=== PATIENT | female | born 1970 | race Caucasian/White ===

== ENCOUNTER 2016-06-14 00:04 | Emergency (ER) | payer MEDICARE, OTHER, MEDICAID ==
[~2016-06-14] VITALS: Ht 165.1 cm; Wt 109.0 kg
[~2016-06-14 00:04] MED LIST: BENA25TA3 PO; DULO-39 PO; FIORINAL2 PO; LINA145C PO; MACR100C2 PO; MARI5CAP PO; MIRA33504 PO; MULT1TAB84 PO; PERC10TA27 PO; TRAZ300T2 PO; XANA1TAB2 PO; XARE20TA PO; ZOFR4TAB3 SL
[2016-06-14 00:16] VITALS: BP 99/59; PULSE 86; RESP 16; TEMP 97.4; O2SAT 96
[2016-06-14 02:00] VITALS: BP 109/70; PULSE 87; RESP 18; O2SAT 97
[2016-06-14] MEDS ORDERED: SODIUM CHLOR 0.9% 1000 ML INJ 1,000 ML IV SCH (02:37)
[2016-06-14] MEDS ORDERED: HYDROmorphone HCL PF 1 MG/ML VIAL IVS ONE (02:45)
[2016-06-14] MEDS ORDERED: ONDANSETRON HCL 4 MG/2 ML VIAL IVP ONE (02:45)
[2016-06-14] MEDS ORDERED: DIATRIZOATE MEGLUM/DIATRIZOATE SOD 9 ML CUP ONE (03:24)
[2016-06-14 03:35] LABS: AUTOMATED NEUTROPHIL # 1.7 TH/MM3 (1.8-7.7); BASOPHIL % 0.1 % (0.0-2.0); EOSINOPHIL # 0.5 TH/MM3 (0-0.4); EOSINOPHIL % 12.4 % (0.0-4.0); HEMATOCRIT 32.3 % (35.0-46.0); HEMO FLAGS DIFF FINAL; LYMPH % 35.3 % (9.0-44.0); LYMPHOCYTE # 1.5 TH/MM3 (1.0-4.8); MEAN CELL VOLUME 78.2 FL (80.0-100.0); MEAN CORPUSCULAR HEMOGLOBIN 26.4 PG (27.0-34.0); MEAN CORPUSCULAR HGB CONC 33.8 % (32.0-36.0); MONO % 10.7 % (0.0-8.0); NEUT % 41.5 % (16.0-70.0); PLATELET COUNT 243 TH/MM3 (150-450); RED BLOOD COUNT 4.13 MIL/MM3 (4.00-5.30); RED CELL DISTRIBUTION WIDTH 13.4 % (11.6-17.2); WHITE BLOOD COUNT 4.1 TH/MM3 (4.0-11.0)
[2016-06-14] MEDS: SODIUM CHLORIDE 0.9% FLUSH 5 ML FLUSH IVF PRN ×3 (03:38→06:39)
[2016-06-14 03:39] VITALS: RESP 18; O2SAT 97
[2016-06-14 03:44] LABS: BICARBONATE 32.9 MEQ/L (21.0-32.0); POTASSIUM 3.9 MEQ/L (3.5-5.1)
[2016-06-14 03:48] LABS: APTT (PATIENT) 35.3 SEC (24.3-30.1); INTERNATIONAL NORMALIZED RATIO 0.9 RATIO; PROTHROMBIN TIME - PATIENT 9.8 SEC (9.8-11.6)
[2016-06-14 04:00] VITALS: BP 113/68; PULSE 89; RESP 18; O2SAT 100
[2016-06-14] MEDS ORDERED: HYDROmorphone HCL PF 1 MG/ML VIAL IV PUSH ONE (05:00)
--- NOTE | 2016-06-14 05:19 | RADRPT ---
EXAM DATE/TIME: 06/14/2016 04:55 [facility] COMPARISON: CT ABDOMEN & PELVIS W/O CONTRAST, April 05, 2016, 0:31. INDICATIONS : Abdomen and back pain past 3 days. ORAL CONTRAST: Prescribed oral contrast ingested. RADIATION DOSE: 20.82 CTDIvol (mGy) MEDICAL HISTORY : Diverticulitis. Pancreatitis. SURGICAL HISTORY : Cholecystectomy. Hysterectomy.Discectomy, lumbar.Pain pump ENCOUNTER: Initial ACUITY: 3 days PAIN SCALE: 7/10 LOCATION: Bilateral abdomen TECHNIQUE: Volumetric scanning of the abdomen and pelvis was performed. Using automated exposure control and ad justment of the mA and/or kV according to patient size, radiation dose was kept as low as reasonably achievable to obtain optimal diagnostic quality images. FINDINGS: LOWER LUNGS: The visualized lower lungs are clear. LIVER: Homogeneous density without lesion. There is no dilation of the biliary tree. Air in the biliary south e in the left lobe, stable. Cholecystectomy SPLEEN: Normal size without lesion. PANCREAS: Within normal limits. KIDNEYS: Normal in size and shape. There is no mass, stone, or hydronephrosis. ADRENAL GLANDS: Within normal limits. VASCULAR: There is no aortic aneurysm. BOWEL/MESENTERY: The stomach, small bowel, and colon demonstrate no acute abnormality. There is no free intraperitone al air or fluid. Minimal mesenteric stranding. ABDOMINAL WALL: Within normal limits. RETROPERITONEUM: There is no lymphadenopathy. BLADDER: No wall thickening or mass. REPRODUCTIVE: Within normal limits. INGUINAL: There is no lymphadenopathy or hernia. MUSCULOSKELETAL: Within normal limits for patient age. Neural stimulator device in the left flank again seen. CONCLUSION: 1. Minimal mesenteric stranding, nonspecific. 2. Air in the biliary tree in the left lobe with previous cholecystectomy, unchanged. Marbin Patel MD on June 14, 2016 at 5:14 Board Certified Radiologist. This report was verified electronically.
[2016-06-14 05:38] LABS: BACTERIA, URINE RARE /hpf; BLOOD, URINE NEG (NEG); COMMENT (UR) CULT NOT INDICATED; CULTURE IF INDICATED CULT NOT INDICATED; GLUCOSE,URINE NEG (NEG); KETONE, URINE NEG (NEG); NITRITE,URINE NEG (NEG); PH, URINE 5.5 (5.0-8.5); SQUAMOUS EPITHELIAL CELL URINE 1 /hpf (0-5); URINE COLOR LIGHT-YELLOW (YELLW/STRAW)
[2016-06-14 05:46] LABS: ALT (GPT) 12 U/L (10-53); AST (GOT) 10 U/L (15-37)
[2016-06-14 05:48] LABS: ALKALINE PHOSPHATASE 78 U/L (45-117); TOTAL BILIRUBIN ADULT 0.1 MG/DL (0.2-1.0)
[2016-06-14 06:00] VITALS: BP 101/62; PULSE 80; RESP 18; O2SAT 98
[2016-06-14] MEDS ORDERED: ONDANSETRON HCL 4 MG/2 ML VIAL IV PUSH ONE (06:30)
[2016-06-14] MEDS ORDERED: AMOX500C PO (06:44)
--- NOTE | 2016-06-14 06:44 | PD ---
HPI Chief Complaint: Abdominal Pain Time Seen by Provider: 02:12 Travel History International Travel<30 days: No Contact w/Intl Traveler<30days: No Traveled to known affect area: No History of Present Illness HPI Patient is a 46-year-old female with multiple abdominal surgeries in the past who comes in complaining of right upper quadrant abdominal pain. She has had a cholecystectomy in the past. She said the pain started earlier. She has had nausea and vomiting. She also reports constipation yesterday and diarrhea today. She says she has had pressure in her bladder, with urgency and frequency of urination. She denies any dysuria. She has not had any fever or chills. PFSH Past Medical History Anxiety: Yes Depression: No Heart Rhythm Problems: No Cancer: No Cardiovascular Problems: No High Cholesterol: No Chest Pain: No Congestive Heart Failure: No Diabetes: No Diminished Hearing: No Diverticulitis: Yes Endocrine: No Gastrointestinal Disorders: Yes (GASTRITIS,ESOPHAGITIS, N&V, HX ULCERS) Genitourinary: Yes (PROLAPSED BLADDER) Hepatitis: No Hiatal Hernia: No Immune Disorder: No Implanted Vascular Access Dvce: Yes Medical other: Yes (ABDOMINAL HERNIA) Musculoskeletal: Yes (DDD, LUMBAR HERNIATED DISC L5-S1) Neurologic: Yes (MIGRAINES, "BLACK OUT SPELLS") Psychiatric: Yes (CLAUSTROPHOBIA) Reproductive: No Respiratory: No Migraines: Yes Pancreatitis: Yes Seizures: Yes Thyroid Disease: No Ulcer: Yes (HEALED GASTRIC) ?: Not LMP: january : 2 Para: 2 Tubal Ligation: Yes Past Surgical History Abdominal Surgery: Yes (SLEEVE SX ON 11/04/13,CHOLY) AICD: No Body Medical Devices: NONE Cardiac Surgery: No Section: Yes (x2) Cholecystectomy: Yes (LAP. IN 2011) Ear Surgery: No Eye Surgery: No Genitourinary Surgery: No Gynecologic Surgery: Yes (C SECTION (X2), TUBAL LIG.) Hysterectomy: Yes Joint Replacement: No Oral Surgery: No Pacemaker: No Thoracic Surgery: No Other Surgery: Yes (LEFT THIGH I&D FOR MRSA) Social History Alcohol Use: No Tobacco Use: No (never) Substance Use: No Allergies-Medications (Allergen,Severity, Reaction): Coded Allergies: Cipro (Verified Allergy, Severe, Hives, ABD PAIN, 06/14/16) Doxycycline (Verified Allergy, Severe, SWELLING, HIVES, 06/14/16) Cleocin (Verified Allergy, Intermediate, HIVES, 06/14/16) Contrast Media (Verified Allergy, Intermediate, Hives, 06/14/16) Vancomycin (Verified Allergy, Intermediate, HIVES, 06/14/16) Biaxin (Verified Adverse Reaction, Intermediate, NAUSEA, 06/14/16) Motrin (Verified Adverse Reaction, Intermediate, ULCERS, ABD PAIN, 06/14/16 ) PT HAS ULCERS, DOES NOT WISH TO TAKE. Toradol (Verified Adverse Reaction, Intermediate, 06/14/16) ABDOMINAL PAIN Bactrim (Verified Adverse Reaction, Mild, abdominal pain, 06/14/16) Has had since without difficulty (reaction was years ago) Reported Meds & Prescriptions Reported Meds & Active Scripts Active Trazodone (Trazodone HCl) 300 Mg Tab 300 Mg PO HS Amoxicillin 500 Mg Cap 500 Mg PO TID 7 Days Xanax (Alprazolam) 1 Mg Tab 1 Mg PO BID PRN Duloxetine DR (Duloxetine HCl) 40 Mg Capdr 40 Mg PO DAILY Fiorinal (Butalbital/Aspirin/Caffeine) 50-325-40 Mg Cap 1 Cap PO Q6HR PRN Do not exceed 6 capsules/day. Reported Benadryl Allergy (Diphenhydramine HCl) 25 Mg Tab 50 Mg PO Q6H PRN Marinol (Dronabinol) 5 Mg Cap 5 Mg PO BID Linzess (Linaclotide) 145 Mcg Cap Unknown Dose PO DAILY Percocet (Oxycodone-Acetaminophen) 10-325 mg Tab 1 Tab PO TID PRN Zofran Odt (Ondansetron Odt) 4 Mg Tab 4 Mg SL Q6HR PRN Review of Systems Except as stated in HPI: all other systems reviewed are Neg General / Constitutional: No: Fever, Chills HENT: No: Headaches, Lightheadedness Cardiovascular: No: Chest Pain or Discomfort Respiratory: No: Shortness of Breath Gastrointestinal: Positive: Nausea, Vomiting, Diarrhea, Abdominal Pain Genitourinary: Positive: Urgency, Frequency, No: Dysuria Skin: No Rash, No Change in Pigmentation Physical Exam Narrative GENERAL: Awake and alert in no acute distress. SKIN: Warm and dry. HEAD: Atraumatic. Normocephalic. EYES: Pupils equal and round. No scleral icterus. ENT:Mucous membranes pink and moist. NECK: Trachea midline. No JVD. CARDIOVASCULAR: Regular rate and rhythm. No murmur appreciated. RESPIRATORY: No accessory muscle use. Clear to auscultation. Breath sounds equal bilaterally. GASTROINTESTINAL: Abdomen soft, nondistended. Diffusely tender to palpation. No rebound or guarding. No CVA tenderness. RECTAL: Brown stool, no masses, good rectal tone MUSCULOSKELETAL: No obvious deformities. No clubbing. No cyanosis. No edema. NEUROLOGICAL: Awake and alert. No obvious cranial nerve deficits. Motor grossly within normal limits. Normal speech. PSYCHIATRIC: Appropriate mood and affect; insight and judgment normal. Data Data Last Documented VS Vital Signs Date Time Temp Pulse Resp B/P Pulse Ox O2 Delivery O2 Flow Rate FiO2 06/14/16 06:00 80 18 101/62 98 Room Air 06/14/16 00:16 97.4 Orders Basic Metabolic Panel (Bmp) (06/14/16 02:37) Complete Blood Count With Diff (06/14/16 02:37) Lipase (06/14/16 02:37) Lactic Acid (06/14/16 02:37) Prothrombin Time / Inr (Pt) (06/14/16 02:37) Act Partial Throm Time (Ptt) (06/14/16 02:37) Urinalysis - C+S If Indicated (06/14/16 02:37) Ua Includes Microscopic (06/14/16 02:37) Iv Access Insert/Monitor (06/14/16 02:37) Ecg Monitoring (06/14/16 02:37) Oximetry (06/14/16 02:37) Ondansetron Inj (Zofran Inj) (06/14/16 02:45) Sodium Chlor 0.9% 1000 Ml Inj (Ns 1000 M (06/14/16 02:37) Sodium Chloride 0.9% Flush (Ns Flush) (06/14/16 02:45) Hydromorphone Pf Inj (Dilaudid Pf Inj) (06/14/16 02:45) Ct Abd/Pel W/O Iv Contrast (06/14/16 ) Oral Contrast - Adult (06/14/16 02:44) Diatrizoate Liq ( Gastroview Liq) (06/14/16 03:24) Hydromorphone Pf Inj (Dilaudid Pf Inj) (06/14/16 05:00) Hepatic Functional Panel (06/14/16 05:29) Ondansetron Inj (Zofran Inj) (06/14/16 06:30) Heparin Central Flush (Heparin Central F (06/14/16 09:00) Heparin Central Flush (Heparin Central F (06/14/16 07:00) Labs Laboratory Tests Test 06/14/16 06/14/16 06/14/16 03:10 03:13 05:10 White Blood Count 4.1 TH/MM3 Red Blood Count 4.13 MIL/MM3 Hemoglobin 10.9 GM/DL Hematocrit 32.3 % Mean Corpuscular Volume 78.2 FL Mean Corpuscular Hemoglobin 26.4 PG Mean Corpuscular Hemoglobin 33.8 % Concent Red Cell Distribution Width 13.4 % Platelet Count 243 TH/MM3 Mean Platelet Volume 8.2 FL Neutrophils (%) (Auto) 41.5 % Lymphocytes (%) (Auto) 35.3 % Monocytes (%) (Auto) 10.7 % Eosinophils (%) (Auto) 12.4 % Basophils (%) (Auto) 0.1 % Neutrophils # (Auto) 1.7 TH/MM3 Lymphocytes # (Auto) 1.5 TH/MM3 Monocytes # (Auto) 0.4 TH/MM3 Eosinophils # (Auto) 0.5 TH/MM3 Basophils # (Auto) 0.0 TH/MM3 CBC Comment DIFF FINAL Differential Comment Prothrombin Time 9.8 SEC Prothromb Time International 0.9 RATIO Ratio Activated Partial 35.3 SEC Thromboplast Time Sodium Level 141 MEQ/L Potassium Level 3.9 MEQ/L Chloride Level 104 MEQ/L Carbon Dioxide Level 32.9 MEQ/L Anion Gap 4 MEQ/L Blood Urea Nitrogen 10 MG/DL Creatinine 0.63 MG/DL Estimat Glomerular Filtration 102 ML/MIN Rate Random Glucose 86 MG/DL Calcium Level 8.5 MG/DL Total Bilirubin 0.1 MG/DL Direct Bilirubin LESS THAN 0.1 MG/DL Indirect Bilirubin 0.0 MG/DL Aspartate Amino Transf 10 U/L (AST/SGOT) Alanine Aminotransferase 12 U/L (ALT/SGPT) Alkaline Phosphatase 78 U/L Total Protein 6.4 GM/DL Albumin 3.1 GM/DL Lipase 138 U/L Lactic Acid Level 0.7 mmol/L Urine Color LIGHT-YELLOW Urine Turbidity CLEAR Urine pH 5.5 Urine Specific [place] 1.003 Urine Protein NEG mg/dL Urine Glucose (UA) NEG mg/dL Urine Ketones NEG mg/dL Urine Occult Blood NEG Urine Nitrite NEG Urine Bilirubin NEG Urine Urobilinogen LESS THAN 2.0 MG/DL Urine Leukocyte Esterase LARGE Urine RBC 6 /hpf Urine WBC 7 /hpf Urine Squamous Epithelial 1 /hpf Cells Urine Bacteria RARE /hpf Microscopic Urinalysis Comment CULT NOT INDICATED MDM Medical Decision Making Medical Screen Exam Complete: Yes Emergency Medical Condition: Yes Medical Record Reviewed: Yes Differential Diagnosis Pancreatitis versus hernia versus bowel obstruction versus UTI versus colitis Narrative Course Patient is a 46-year-old female comes in complaining of abdominal pain. Exam shows diffuse pain. IV established, labs sent. Labs show no acute abnormalities. Urinalysis does show evidence of UTI. Abdomen and pelvis shows no acute abnormalities, no reason for pain. Patient given IV fluids, pain medicine, Zofran. She continued to have pain, given a second dose of pain medicine. Patient told she has a UTI, given a prescription for amoxicillin. Advised follow-up with her doctors. Advised to return to the ED as needed for any worsening symptoms. Diagnosis Primary Impression: UTI (urinary tract infection) Qualified Code: N30.00 - Acute cystitis without hematuria Additional Impression: Abdominal pain Qualified Code: R10.84 - Generalized abdominal pain Patient Instructions: Abdominal Pain (ED), General Instructions, Urinary Tract Infection in Women (ED) Additional Instructions: Follow up with your doctors. Eat a bland diet. Drink plenty of fluids. Return to the ED as needed for any worsening symptoms. Scripts Amoxicillin 500 Mg [id number] Mg PO TID 7 Days Ref 0 Prov:Amita Yi MD 06/14/16 Disposition: 01 DISCHARGE HOME Condition: Stable Amita Yi MD Jun 14, 2016 06:44
[2016-06-14] MEDS ORDERED: TRAZ300T2 PO (14:03)
[2016-07-04] MEDS ORDERED: XANA1TAB2 PO (17:05)
[2016-07-04] MEDS ORDERED: DULO1CAP3 PO (17:05)
[2016-07-05] MEDS ORDERED: TRAZ300T2 PO (07:04)
[2016-07-05] MEDS ORDERED: FIORINAL2 PO (07:04)
[2016-07-24] MEDS ORDERED: GUAI1SOL7 PO (15:22)
[2016-07-24] MEDS ORDERED: ALBUAER3 INH (15:22)
[2016-07-24] MEDS ORDERED: DULO1CAP3 PO (15:23)
[2016-09-17] MEDS ORDERED: CARPAL TUNNEL W1 MIS ×2 (14:39→14:54)
[2016-09-17] MEDS ORDERED: ZOFR4TAB3 SL (14:45)
[2016-09-17] MEDS ORDERED: XANA1TAB2 PO (14:45)
[2016-09-17] MEDS ORDERED: GABA300C5 PO (14:49)
[2016-09-18] MEDS ORDERED: TRIA40P I-ARTICULR ×2 (11:36→11:56)
== END 2016-06-14 08:01 | disposition home or self-care (01) ==
LOC: NEPE 00:04
DX: N30.00 Acute cystitis without hematuria (principal)
CPT/HCPCS: 74176; 80048; 80076; 81001; 83605; 83690; 85025; 85610; 85730; 96361; 96374; 96375; 96376; 99284; J1170; J1642; J2405; J7030; Q9963

== ENCOUNTER 2016-06-23 02:56 | Emergency (ER) | payer MEDICARE, OTHER ==
[~2016-06-23] VITALS: Ht 165.1 cm; Wt 110.0 kg
[~2016-06-23 02:56] MED LIST changes: +AMOX500C PO; -MACR100C2 PO; -MIRA33504 PO; -MULT1TAB84 PO; -XARE20TA PO
[2016-06-23 03:09] VITALS: BP 131/68; PULSE 66; RESP 16; TEMP 98; O2SAT 95
[2016-06-23] MEDS ORDERED: ZANA4CAP PO (05:16)
[2016-06-23] MEDS ORDERED: DULO20 PO (05:16)
[2016-06-23] MEDS ORDERED: HYDROmorphone HCL PF 1 MG/ML VIAL IVS ONE (05:30)
[2016-06-23] MEDS ORDERED: SODIUM CHLORIDE 0.9% FLUSH 5 ML FLUSH IVF PRN (05:30)
[2016-06-23] MEDS ORDERED: ONDANSETRON HCL 4 MG/2 ML VIAL IVP ONE (05:30)
[2016-06-23] MEDS ORDERED: SODIUM CHLOR 0.9% 1000 ML INJ 1,000 ML IV SCH (05:30)
--- NOTE | 2016-06-23 05:32 | PD ---
HPI Chief Complaint: GI Complaint Time Seen by Provider: 05:26 Travel History International Travel<30 days: No Contact w/Intl Traveler<30days: No Traveled to known affect area: No History of Present Illness HPI 46-year-old female presents to the emergency department by private transportation for evaluation of abdominal pain. Patient states she has had abdominal pain right-sided primarily times one week. Pain became severe on Saturday and then much worse today. No fever chills no chest pain or shortness of breath. Patient has had nausea and 2 episodes of small amount of nonbilious non-bloody emesis. Patient's had diarrhea and) constipation. Patient has not noticed any bright red blood per rectum or melena. Patient has had gastric bypass and cholecystectomy in the past. No prior reported history of small bowel obstructive. No dysuria frequency or urgency. No dietary indiscretion. No report of well water ingestion or foreign travel. PFSH Past Medical History Narrative Medical Anxiety morbid obesity gastric sleeve bypass cholecystectomy peptic ulcer disease gastritis diverticulitis esophagitis pancreatitis lumbar disc disease migraine tubal ligation no tobacco use nursing notes reviewed Anxiety: Yes Depression: No Heart Rhythm Problems: No Cancer: No Cardiovascular Problems: No High Cholesterol: No Chest Pain: No Congestive Heart Failure: No Diabetes: No Diminished Hearing: No Diverticulitis: Yes Endocrine: No Gastrointestinal Disorders: Yes (GASTRITIS,ESOPHAGITIS, N&V, HX ULCERS) Genitourinary: Yes (PROLAPSED BLADDER) Hepatitis: No Hiatal Hernia: No Immune Disorder: No Implanted Vascular Access Dvce: Yes Medical other: Yes (ABDOMINAL HERNIA) Musculoskeletal: Yes (DDD, LUMBAR HERNIATED DISC L5-S1) Neurologic: Yes (MIGRAINES, "BLACK OUT SPELLS") Psychiatric: Yes (CLAUSTROPHOBIA) Reproductive: No Respiratory: No Migraines: Yes Pancreatitis: Yes Seizures: Yes Thyroid Disease: No Ulcer: Yes (HEALED GASTRIC) Tetanus Vaccination: > 5 Years ?: Not : 2 Para: 2 Tubal Ligation: Yes Past Surgical History Abdominal Surgery: Yes (SLEEVE SX ON 11/04/13,CHOLY) AICD: No Body Medical Devices: NONE Cardiac Surgery: No Section: Yes (x2) Cholecystectomy: Yes (LAP. [place] 2011) Ear Surgery: No Eye Surgery: No Genitourinary Surgery: No Gynecologic Surgery: Yes (C SECTION (X2), TUBAL LIG.) Hysterectomy: Yes Joint Replacement: No Oral Surgery: No Pacemaker: No Thoracic Surgery: No Other Surgery: Yes (LEFT THIGH I&D FOR MRSA) Social History Alcohol Use: No Tobacco Use: No (never) Substance Use: No Allergies-Medications (Allergen,Severity, Reaction): Coded Allergies: Cipro (Verified Allergy, Severe, Hives, ABD PAIN, 06/23/16) Doxycycline (Verified Allergy, Severe, SWELLING, HIVES, 06/23/16) Cleocin (Verified Allergy, Intermediate, HIVES, 06/23/16) Contrast Media (Verified Allergy, Intermediate, Hives, 06/23/16) Vancomycin (Verified Allergy, Intermediate, HIVES, 06/23/16) Biaxin (Verified Adverse Reaction, Intermediate, NAUSEA, 06/23/16) Motrin (Verified Adverse Reaction, Intermediate, ULCERS, ABD PAIN, 06/23/16 ) PT HAS ULCERS, DOES NOT WISH TO TAKE. Toradol (Verified Adverse Reaction, Intermediate, 06/23/16) ABDOMINAL PAIN Bactrim (Verified Adverse Reaction, Mild, abdominal pain, 06/23/16) Has had since without difficulty (reaction was years ago) Reported Meds & Prescriptions Reported Meds & Active Scripts Active Trazodone (Trazodone HCl) 300 Mg Tab 300 Mg PO HS Xanax (Alprazolam) 1 Mg Tab 1 Mg PO BID PRN Duloxetine DR (Duloxetine HCl) 40 Mg Capdr 40 Mg PO DAILY Fiorinal (Butalbital/Aspirin/Caffeine) 50-325-40 Mg Cap 1 Cap PO Q6HR PRN Do not exceed 6 capsules/day. Reported Cymbalta DR (Duloxetine HCl) 20 Mg Capdr 40 Mg PO DAILY Zanaflex (Tizanidine HCl) 4 Mg Cap 4 Mg PO TID PRN Marinol (Dronabinol) 5 Mg Cap 5 Mg PO BID Linzess (Linaclotide) 145 Mcg Cap Unknown Dose PO DAILY Percocet (Oxycodone-Acetaminophen) 10-325 mg Tab 1 Tab PO TID PRN Zofran Odt (Ondansetron Odt) 4 Mg Tab 4 Mg SL Q6HR PRN Review of Systems Except as stated in HPI: all other systems reviewed are Neg General / Constitutional: Positive: Weight Loss (7 pounds), No: Fever, Chills HENT: No: Congestion Cardiovascular: No: Chest Pain or Discomfort Respiratory: No: Shortness of Breath Gastrointestinal: Positive: Nausea, Vomiting, Diarrhea, Abdominal Pain, No: Hematemesis, Hematochezia, Loss of Appetite Genitourinary: No: Urgency, Frequency, Dysuria Musculoskeletal: No: Myalgias, Arthralgias Skin: No Rash Neurologic: No: Weakness Hematologic/Lymphatic: No: Lymph Node Enlargement Physical Exam Narrative GENERAL: Well-developed morbidly obese female in no acute distress no respiratory distress SKIN: Warm and dry. HEAD: Normocephalic. EYES: No scleral icterus. No injection or drainage. NECK: Supple, trachea midline. No JVD or lymphadenopathy. CARDIOVASCULAR: Regular rate and rhythm without murmurs, gallops, or rubs. RESPIRATORY: Breath sounds equal bilaterally. No accessory muscle use. GASTROINTESTINAL: Abdomen soft, diffusely tender without guarding or rebound, nondistended. MUSCULOSKELETAL: No cyanosis, or edema. BACK: Nontender without obvious deformity. No CVA tenderness. Data Data Last Documented VS Vital Signs Date Time Temp Pulse Resp B/P Pulse Ox O2 Delivery O2 Flow Rate FiO2 06/23/16 05:06 20 06/23/16 03:09 98.0 66 131/68 95 Orders Complete Blood Count With Diff (06/23/16 05:26) Comprehensive Metabolic Panel (06/23/16 05:26) Lipase (06/23/16 05:26) Urinalysis - C+S If Indicated (06/23/16 05:26) Iv Access Insert/Monitor (06/23/16 05:26) Ecg Monitoring (06/23/16 05:26) Oximetry (06/23/16 05:26) Ondansetron Inj (Zofran Inj) (06/23/16 05:30) Sodium Chloride 0.9% Flush (Ns Flush) (06/23/16 05:30) Chest, Single Ap (06/23/16 05:26) Hydromorphone Pf Inj (Dilaudid Pf Inj) (06/23/16 05:30) Sodium Chlor 0.9% 1000 Ml Inj (Ns 1000 M (06/23/16 05:30) Ct Abd/Pel W/O Iv Contrast (06/23/16 ) Cath For Specimen (06/23/16 07:13) Labs Laboratory Tests Test 06/23/16 06/23/16 05:44 06:23 White Blood Count 4.7 TH/MM3 Red Blood Count 4.34 MIL/MM3 Hemoglobin 11.4 GM/DL Hematocrit 34.5 % Mean Corpuscular Volume 79.5 FL Mean Corpuscular Hemoglobin 26.3 PG Mean Corpuscular Hemoglobin 33.1 % Concent Red Cell Distribution Width 13.2 % Platelet Count 185 TH/MM3 Mean Platelet Volume 8.5 FL Neutrophils (%) (Auto) 45.0 % Lymphocytes (%) (Auto) 39.7 % Monocytes (%) (Auto) 9.9 % Eosinophils (%) (Auto) 5.0 % Basophils (%) (Auto) 0.4 % Neutrophils # (Auto) 2.1 TH/MM3 Lymphocytes # (Auto) 1.9 TH/MM3 Monocytes # (Auto) 0.5 TH/MM3 Eosinophils # (Auto) 0.2 TH/MM3 Basophils # (Auto) 0.0 TH/MM3 CBC Comment DIFF FINAL Differential Comment Sodium Level 140 MEQ/L Potassium Level 3.4 MEQ/L Chloride Level 105 MEQ/L Carbon Dioxide Level 26.1 MEQ/L Anion Gap 9 MEQ/L Blood Urea Nitrogen 12 MG/DL Creatinine 0.67 MG/DL Estimat Glomerular Filtration 95 ML/MIN Rate Random Glucose 79 MG/DL Calcium Level 8.4 MG/DL Total Bilirubin 0.3 MG/DL Aspartate Amino Transf 9 U/L (AST/SGOT) Alanine Aminotransferase 13 U/L (ALT/SGPT) Alkaline Phosphatase 77 U/L Total Protein 6.6 GM/DL Albumin 3.3 GM/DL Lipase 139 U/L [facility] Medical Decision Making Medical Screen Exam Complete: Yes Emergency Medical Condition: Yes Medical Record Reviewed: Yes Differential Diagnosis Abdominal pain gastritis pancreatitis bowel obstruction choledocholithiasis diverticulitis appendicitis gastroenteritis irritable bowel syndrome Narrative Course IV access obtained specimens collected and sent for resulting patient administered Dilaudid 1 mg IV along with Zofran 4 mg IV at maintenance fluids at 100 cc per hour normal saline CT scan of the abdomen and pelvis ordered along with lab work care signed over to Guera Saldana MD Jun 23, 2016 05:32
--- NOTE | 2016-06-23 06:11 | RADRPT ---
EXAM DATE/TIME: 06/23/2016 05:46 [facility] COMPARISON: CT ABDOMEN & PELVIS W/O CONTRAST, June 14, 2016, 4:55. INDICATIONS : Right sided abdominal pain. ORAL CONTRAST: No oral contrast ingested. RADIATION DOSE: 24.20 CTDIvol (mGy) MEDICAL HISTORY : Pancreatitis. Seizures. Gastritis, prolapsed bladder SURGICAL HISTORY : Hysterectomy. Cholecystectomy.Gastric sleeve ENCOUNTER: Initial ACUITY: 1 day PAIN SCALE: 7/10 LOCATION: abdomen TECHNIQUE: Volumetric scanning of the abdomen and pelvis was performed. Using automated exposure control and ad justment of the mA and/or kV according to patient size, radiation dose was kept as low as reasonably achievable to obtain optimal diagnostic quality images. FINDINGS: Hemoclips in the amilcar from prior cholecystectomy. There is some gas in the biliary system the left lobe similar to prior examination.. No focal lesions seen in the liver for noncontrast technique. T he spleen, pancreas, kidneys, and the lungs are intact. The abdominal aorta is normal in diameter. Anastomosis sutures seen along the greater curvature of the stomach. No dilated loops of small or la rge bowel. No evidence of free fluid. Urinary bladder margins are smooth. The anterior abdominal w all is intact and stable in configuration from prior exam. In the midline mid abdominal mesentery, t here is some minimal stranding of the fat which is unchanged in appearance from prior. Nonobstructin g 2 mm stone in the lower pole the left kidney stable from prior. No evidence of hydronephrosis on e ither side. The visualized lower lungs are clear. Wide windows 4 bony detail demonstrate the osseous structures to be intact. Spinal stimulation device with control box in the left gluteal region. CONCLUSION: No acute findings. Mesenteric stranding, nonobstructing left lower pole renal stone and gas and bili noel system are all stable in appearance when compared to prior CT 06/14/16. Augustin Messina MD on June 23, 2016 at 6:00 Board Certified Radiologist. This report was verified electronically.
--- NOTE | 2016-06-23 06:48 | RADRPT ---
EXAM DATE/TIME: 06/23/2016 06:08 [facility] COMPARISON: CHEST SINGLE AP, November 21, 2013, 22:25. INDICATIONS : Pt c/o RLQ pain with nausea and vomiting x 4 days. MEDICAL HISTORY : Pancreatitis. Diverticulitis. seizures SURGICAL HISTORY : Hysterectomy. Cholecystectomy. Tubal ligation. Discectomy, lumbar, gastric sleeve surgery ENCOUNTER: Initial ACUITY: 4 - 6 days PAIN SCORE: 7/10 LOCATION: Bilateral chest FINDINGS: Left subclavian catheter tip projects at the origin of the superior vena cava. The lungs are symmetr ically aerated. The heart is normal size. Both hemidiaphragms well delineated. CONCLUSION: The lungs are clear. Augustin Messina MD on June 23, 2016 at 6:47 Board Certified Radiologist. This report was verified electronically.
[2016-06-23 06:51] LABS: AUTOMATED NEUTROPHIL # 2.1 TH/MM3 (1.8-7.7); BASOPHIL % 0.4 % (0.0-2.0); EOSINOPHIL # 0.2 TH/MM3 (0-0.4); HEMATOCRIT 34.5 % (35.0-46.0); HEMO FLAGS DIFF FINAL; LYMPH % 39.7 % (9.0-44.0); LYMPHOCYTE # 1.9 TH/MM3 (1.0-4.8); MEAN CELL VOLUME 79.5 FL (80.0-100.0); MEAN CORPUSCULAR HEMOGLOBIN 26.3 PG (27.0-34.0); MEAN CORPUSCULAR HGB CONC 33.1 % (32.0-36.0); MONO % 9.9 % (0.0-8.0); PLATELET COUNT 185 TH/MM3 (150-450); RED BLOOD COUNT 4.34 MIL/MM3 (4.00-5.30); RED CELL DISTRIBUTION WIDTH 13.2 % (11.6-17.2); WHITE BLOOD COUNT 4.7 TH/MM3 (4.0-11.0)
[2016-06-23 07:06] LABS: ANION GAP 9 MEQ/L (5-15); AST (GOT) 9 U/L (15-37); BICARBONATE 26.1 MEQ/L (21.0-32.0); BLOOD UREA NITROGEN 12 MG/DL (7-18); CHLORIDE 105 MEQ/L (98-107); GLOMERULAR FILTRATION RATE 95 ML/MIN (>89); POTASSIUM 3.4 MEQ/L (3.5-5.1); SODIUM (NA) 140 MEQ/L (136-145)
[2016-06-23 07:09] LABS: ALKALINE PHOSPHATASE 77 U/L (45-117); ALT (GPT) 13 U/L (10-53); TOTAL BILIRUBIN ADULT 0.3 MG/DL (0.2-1.0)
[2016-06-23 07:21] VITALS: O2SAT 97
--- NOTE | 2016-06-23 08:35 | PD ---
Data Data Last Documented VS Vital Signs Date Time Temp Pulse Resp B/P Pulse Ox O2 Delivery O2 Flow Rate FiO2 06/23/16 08:47 68 18 98/65 98 06/23/16 07:21 Room Air 06/23/16 03:09 98.0 Orders Complete Blood Count With Diff (06/23/16 05:26) Comprehensive Metabolic Panel (06/23/16 05:26) Lipase (06/23/16 05:26) Urinalysis - C+S If Indicated (06/23/16 05:26) Iv Access Insert/Monitor (06/23/16 05:26) Ecg Monitoring (06/23/16 05:26) Oximetry (06/23/16 05:26) Ondansetron Inj (Zofran Inj) (06/23/16 05:30) Sodium Chloride 0.9% Flush (Ns Flush) (06/23/16 05:30) Chest, Single Ap (06/23/16 05:26) Hydromorphone Pf Inj (Dilaudid Pf Inj) (06/23/16 05:30) Sodium Chlor 0.9% 1000 Ml Inj (Ns 1000 M (06/23/16 05:30) Ct Abd/Pel W/O Iv Contrast (06/23/16 ) Cath For Specimen (06/23/16 07:13) Oxycodone-Acetamin 5-325 Mg (Percocet (06/23/16 08:45) Heparin Central Flush (Heparin Central F (06/24/16 09:00) Heparin Central Flush (Heparin Central F (06/23/16 09:37) Labs Laboratory Tests Test 06/23/16 06/23/16 06/23/16 05:44 06:23 08:40 White Blood Count 4.7 TH/MM3 Red Blood Count 4.34 MIL/MM3 Hemoglobin 11.4 GM/DL Hematocrit 34.5 % Mean Corpuscular Volume 79.5 FL Mean Corpuscular Hemoglobin 26.3 PG Mean Corpuscular Hemoglobin 33.1 % Concent Red Cell Distribution Width 13.2 % Platelet Count 185 TH/MM3 Mean Platelet Volume 8.5 FL Neutrophils (%) (Auto) 45.0 % Lymphocytes (%) (Auto) 39.7 % Monocytes (%) (Auto) 9.9 % Eosinophils (%) (Auto) 5.0 % Basophils (%) (Auto) 0.4 % Neutrophils # (Auto) 2.1 TH/MM3 Lymphocytes # (Auto) 1.9 TH/MM3 Monocytes # (Auto) 0.5 TH/MM3 Eosinophils # (Auto) 0.2 TH/MM3 Basophils # (Auto) 0.0 TH/MM3 CBC Comment DIFF FINAL Differential Comment Sodium Level 140 MEQ/L Potassium Level 3.4 MEQ/L Chloride Level 105 MEQ/L Carbon Dioxide Level 26.1 MEQ/L Anion Gap 9 MEQ/L Blood Urea Nitrogen 12 MG/DL Creatinine 0.67 MG/DL Estimat Glomerular Filtration 95 ML/MIN Rate Random Glucose 79 MG/DL Calcium Level 8.4 MG/DL Total Bilirubin 0.3 MG/DL Aspartate Amino Transf 9 U/L (AST/SGOT) Alanine Aminotransferase 13 U/L (ALT/SGPT) Alkaline Phosphatase 77 U/L Total Protein 6.6 GM/DL Albumin 3.3 GM/DL Lipase 139 U/L Urine Color LIGHT-YELLOW Urine Turbidity CLEAR Urine pH 6.0 Urine Specific [place] 1.004 Urine Protein NEG mg/dL Urine Glucose (UA) NEG mg/dL Urine Ketones NEG mg/dL Urine Occult Blood NEG Urine Nitrite NEG Urine Bilirubin NEG Urine Urobilinogen LESS THAN 2.0 MG/DL Urine Leukocyte Esterase NEG Urine RBC LESS THAN 1 /hpf Urine WBC 1 /hpf Urine Squamous Epithelial 3 /hpf Cells Urine Transitional Epithelial <1 /hpf Cells Microscopic Urinalysis Comment CULT NOT INDICATED MDM Supervised Visit with ISSAC: No Narrative Course Patient care assumed from Dr. Kramer at 07 100, briefly this a 46-year-old female with a history of abdominal pain who has presented to the [facility] has had gastric emptying studies and no definitive diagnosis. Patient states that her pain is been flared up on her for the past week and she's lost 7 pounds over the past week. Labs are within normal limits, CT negative, awaiting for urinalysis. Patient abdomen exam is soft and nontender albeit obese. She has been emulating in the emergency department and appears in no apparent distress. On exam in the room she appears mildly uncomfortable. The Percocet is been ordered for her in the emergency department. She has Percocets at home to help manage her pain. Discussed with her need follow-up the manager integrity consider return to [facility] to see her physicians there. Diagnosis Primary Impression: Chronic abdominal pain Disposition: DISCHARGE HOME Condition: Stable Jeff Vegas MD Jun 23, 2016 08:35
[2016-06-23] MEDS ORDERED: oxyCODONE/ACETAMINOPHEN 5 MG/325 MG TAB PO ONE (08:45)
[2016-06-23 08:47] VITALS: BP 98/65; PULSE 68; RESP 18; O2SAT 98
[2016-06-23 09:15] LABS: BLOOD, URINE NEG (NEG); GLUCOSE,URINE NEG (NEG); KETONE, URINE NEG (NEG); NITRITE,URINE NEG (NEG); SQUAMOUS EPITHELIAL CELL URINE 3 /hpf (0-5); TRANSITIONAL EPI CELLS, URINE <1 /hpf; URINE COLOR LIGHT-YELLOW (YELLW/STRAW)
[2016-06-23 09:16] LABS: COMMENT (UR) CULT NOT INDICATED; CULTURE IF INDICATED CULT NOT INDICATED
[2016-07-04] MEDS ORDERED: XANA1TAB2 PO (17:05)
[2016-07-04] MEDS ORDERED: DULO1CAP3 PO (17:05)
[2016-07-05] MEDS ORDERED: TRAZ300T2 PO (07:04)
[2016-07-05] MEDS ORDERED: FIORINAL2 PO (07:04)
[2016-07-24] MEDS ORDERED: GUAI1SOL7 PO (15:22)
[2016-07-24] MEDS ORDERED: ALBUAER3 INH (15:22)
[2016-07-24] MEDS ORDERED: DULO1CAP3 PO (15:23)
[2016-09-17] MEDS ORDERED: CARPAL TUNNEL W1 MIS ×2 (14:39→14:54)
[2016-09-17] MEDS ORDERED: XANA1TAB2 PO (14:45)
[2016-09-17] MEDS ORDERED: ZOFR4TAB3 SL (14:45)
[2016-09-17] MEDS ORDERED: GABA300C5 PO (14:49)
[2016-09-18] MEDS ORDERED: TRIA40P I-ARTICULR ×2 (11:36→11:56)
== END 2016-06-23 10:01 | disposition home or self-care (01) ==
LOC: NEPC 02:56
DX: R10.9 Unspecified abdominal pain (principal); G89.29 Other chronic pain; Z98.84 Bariatric surgery status
CPT/HCPCS: 71010; 74176; 80053; 81001; 83690; 85025; 96374; 96375; 99284; J1170; J1642; J2405; J7030

== ENCOUNTER 2016-06-30 05:44 | Emergency (ER) | payer MEDICARE, OTHER ==
[~2016-06-30] VITALS: Ht 175.3 cm; Wt 115.0 kg
[~2016-06-30 05:44] MED LIST changes: -AMOX500C PO; -BENA25TA3 PO; +DULO20 PO; +ZANA4CAP PO
[2016-06-30 05:46] VITALS: BP 140/68; PULSE 99; RESP 18; TEMP 97.5; O2SAT 99
[2016-06-30 06:00] VITALS: BP 143/93; PULSE 90; RESP 18; TEMP 98.9; O2SAT 99
[2016-06-30] MEDS ORDERED: DICYCLOMINE HCL 20 MG/2 ML VIAL IM ONE (06:00)
[2016-06-30] MEDS ORDERED: SODIUM CHLOR 0.9% 1000 ML INJ 1,000 ML IV ONE (06:00)
[2016-06-30] MEDS ORDERED: PROCHLORPERAZINE INJ 10 MG/2 ML VIAL IVS ONE (06:00)
[2016-06-30] MEDS ORDERED: pancreatic enzymes (06:06)
[2016-06-30] MEDS ORDERED: NALO1TAB PO (06:06)
[2016-06-30] MEDS ORDERED: METR-1 PO (06:06)
--- NOTE | 2016-06-30 06:06 | PD ---
HPI Chief Complaint: Abdominal Pain Time Seen by Provider: 05:53 Travel History International Travel<30 days: No Contact w/Intl Traveler<30days: No Traveled to known affect area: No History of Present Illness HPI 46-year-old woman with acute recurrent abdominal pain presents to ED with the same. States she's been having nausea vomiting abdominal pains and "hypoglycemic episodes" for the past 24-48 hours. She saw her GI doctor recently who adjusted multiple over GI medications including placing her on Flagyl. She takes Marinol times for vomiting and states hasn't really helped. She is due to have more workup. No clear diagnosis for her chronic recurrent abdominal pain is been found. History Past Medical History Narrative Medical Stomach pain Back pains Morbid obesity : 2 Para: 2 Social History Alcohol Use: No Tobacco Use: No (never) Allergies-Medications (Allergen,Severity, Reaction): Coded Allergies: Cipro (Verified Allergy, Severe, Hives, ABD PAIN, 06/30/16) Doxycycline (Verified Allergy, Severe, SWELLING, HIVES, 06/30/16) Cleocin (Verified Allergy, Intermediate, HIVES, 06/30/16) Contrast Media (Verified Allergy, Intermediate, Hives, 06/30/16) Vancomycin (Verified Allergy, Intermediate, HIVES, 06/30/16) Biaxin (Verified Adverse Reaction, Intermediate, NAUSEA, 06/30/16) Motrin (Verified Adverse Reaction, Intermediate, ULCERS, ABD PAIN, 06/30/16 ) PT HAS ULCERS, DOES NOT WISH TO TAKE. Toradol (Verified Adverse Reaction, Intermediate, 06/30/16) ABDOMINAL PAIN Bactrim (Verified Adverse Reaction, Mild, abdominal pain, 06/30/16) Has had since without difficulty (reaction was years ago) Reported Meds & Prescriptions Reported Meds & Active Scripts Active Trazodone (Trazodone HCl) 300 Mg Tab 300 Mg PO HS Xanax (Alprazolam) 1 Mg Tab 1 Mg PO BID PRN Duloxetine DR (Duloxetine HCl) 40 Mg Capdr 40 Mg PO DAILY Fiorinal (Butalbital/Aspirin/Caffeine) 50-325-40 Mg Cap 1 Cap PO Q6HR PRN Do not exceed 6 capsules/day. Reported Movantik (Naloxegol) 12.5 Mg Tab 12.5 Mg PO DAILY Flagyl (Metronidazole) 500 Mg Tab 500 Mg PO TID [pancreatic enzymes] Zanaflex (Tizanidine HCl) 4 Mg Cap 4 Mg PO TID PRN Marinol (Dronabinol) 5 Mg Cap 5 Mg PO BID Percocet (Oxycodone-Acetaminophen) 10-325 mg Tab 1 Tab PO TID PRN Zofran Odt (Ondansetron Odt) 4 Mg Tab 4 Mg SL Q6HR PRN Review of Systems Except as stated in HPI: all other systems reviewed are Neg Physical Exam Narrative GENERAL: The 46-year-old woman, appears uncomfortable, nontoxic. SKIN: Warm and dry. HEAD: Atraumatic. Normocephalic. CARDIOVASCULAR: Regular rate and rhythm. No murmur appreciated. RESPIRATORY: No accessory muscle use. Clear to auscultation. Breath sounds equal bilaterally. GASTROINTESTINAL: Abdomen is morbidly obese. Mild epigastric tenderness. No rebound or guarding. MUSCULOSKELETAL: No obvious deformities. No clubbing. No cyanosis. No edema. NEUROLOGICAL: Awake and alert. No obvious cranial nerve deficits. Motor grossly within normal limits. Normal speech. PSYCHIATRIC: Appropriate mood and affect; insight and judgment normal. Data Data Last Documented VS Vital Signs Date Time Temp Pulse Resp B/P Pulse Ox O2 Delivery O2 Flow Rate FiO2 06/30/16 06:00 98.9 90 18 143/93 99 06/30/16 05:46 Room Air Orders Complete Blood Count With Diff (06/30/16 06:00) Comprehensive Metabolic Panel (06/30/16 06:00) Lipase (06/30/16 06:00) Iv Access Insert/Monitor (06/30/16 06:00) Sodium Chlor 0.9% 1000 Ml Inj (Ns 1000 M (06/30/16 06:00) Dicyclomine Inj (Bentyl Inj) (06/30/16 06:00) Prochlorperazine Inj (Compazine Inj) (06/30/16 06:00) MDM Medical Decision Making Medical Screen Exam Complete: Yes Emergency Medical Condition: Yes Differential Diagnosis Acute recurrent abdominal pain, gastritis, pancreatitis, electrolyte abnormalities, other Narrative Course Medical decision making 46-year-old with chronic abdominal pain, here at the same. Review of records shows multiple previous visits. CT scan also shows a little bit of what sounds like mesenteric stranding, her gallbladder is already out. Recommend supportive treatment. Avoid opiates. Jacoby Khan MD Jun 30, 2016 06:06
[2016-06-30 07:00] LABS: AUTOMATED NEUTROPHIL # 7.4 TH/MM3 (1.8-7.7); BASOPHIL % 0.4 % (0.0-2.0); EOSINOPHIL % 0.2 % (0.0-4.0); HEMATOCRIT 35.3 % (35.0-46.0); HEMO FLAGS DIFF FINAL; LYMPH % 13.4 % (9.0-44.0); LYMPHOCYTE # 1.3 TH/MM3 (1.0-4.8); MEAN CELL VOLUME 78.8 FL (80.0-100.0); MEAN CORPUSCULAR HEMOGLOBIN 26.7 PG (27.0-34.0); MEAN CORPUSCULAR HGB CONC 33.8 % (32.0-36.0); MONO % 8.4 % (0.0-8.0); NEUT % 77.6 % (16.0-70.0); PLATELET COUNT 237 TH/MM3 (150-450); RED BLOOD COUNT 4.47 MIL/MM3 (4.00-5.30); RED CELL DISTRIBUTION WIDTH 13.5 % (11.6-17.2); WHITE BLOOD COUNT 9.5 TH/MM3 (4.0-11.0)
[2016-06-30 07:24] LABS: ANION GAP 8 MEQ/L (5-15); BICARBONATE 26.1 MEQ/L (21.0-32.0); BLOOD UREA NITROGEN 9 MG/DL (7-18); CHLORIDE 106 MEQ/L (98-107); GLOMERULAR FILTRATION RATE 94 ML/MIN (>89); POTASSIUM 3.1 MEQ/L (3.5-5.1); SODIUM (NA) 140 MEQ/L (136-145)
[2016-06-30 07:28] LABS: ALKALINE PHOSPHATASE 74 U/L (45-117); ALT (GPT) 14 U/L (10-53); AST (GOT) 11 U/L (15-37); TOTAL BILIRUBIN ADULT 0.2 MG/DL (0.2-1.0)
[2016-06-30 07:46] VITALS: BP 119/57; PULSE 79; RESP 16; O2SAT 99
--- NOTE | 2016-06-30 08:14 | PD ---
Physical Exam Date Seen by Provider: Jun 30, 2016 Time Seen by Provider: 08:07 Narrative 46-year-old female with history of chronic abdominal pain, nausea and vomiting came to the emergency room with all the above complains. Patient has been in this ER and admitted for the same symptoms multiple times in the past. Extensive workups have been done and no concrete cause of her symptoms have been found out yet. There is a possibility the patient has cyclic vomiting syndrome. Especially given the frequency with which she comes with her symptoms. I was given a sign out from the previous ER physician to follow-up on the lab work. Patient was given IV fluid and I was told by the nurse that she was given some juice and crackers which she has been able to keep them down. Blood test results came back and her potassium is low. I've ordered Reglan and. awaiting his of by mouth potassium. I went and reassessed the patient and she says she still in pain. She wanted something for pain and I have ordered 2 hydrocodone's. I have explained to her that I could not discharge her home with any narcotics. Patient will be discharged however. She has an endoscopy appointment coming out from her GI specialist. I have encouraged her to follow up with that. Patient says that she has Zofran and pain prescriptions at home and I have encouraged her to take the Zofran. Data Data Last Documented VS Vital Signs Date Time Temp Pulse Resp B/P Pulse Ox O2 Delivery O2 Flow Rate FiO2 06/30/16 07:46 79 16 119/57 99 Room Air 06/30/16 06:00 98.9 Orders Complete Blood Count With Diff (06/30/16 06:00) Comprehensive Metabolic Panel (06/30/16 06:00) Lipase (06/30/16 06:00) Iv Access Insert/Monitor (06/30/16 06:00) Sodium Chlor 0.9% 1000 Ml Inj (Ns 1000 M (06/30/16 06:00) Dicyclomine Inj (Bentyl Inj) (06/30/16 06:00) Prochlorperazine Inj (Compazine Inj) (06/30/16 06:00) Potassium Chloride (Kcl) (06/30/16 08:15) Acetamin-Hydrocod 325-5 Mg ([place] 5-325 (06/30/16 08:15) Heparin Central Flush (Heparin Central F (06/30/16 08:45) Labs Laboratory Tests Test 06/30/16 06:45 White Blood Count 9.5 TH/MM3 Red Blood Count 4.47 MIL/MM3 Hemoglobin 11.9 GM/DL Hematocrit 35.3 % Mean Corpuscular Volume 78.8 FL Mean Corpuscular Hemoglobin 26.7 PG Mean Corpuscular Hemoglobin 33.8 % Concent Red Cell Distribution Width 13.5 % Platelet Count 237 TH/MM3 Mean Platelet Volume 8.4 FL Neutrophils (%) (Auto) 77.6 % Lymphocytes (%) (Auto) 13.4 % Monocytes (%) (Auto) 8.4 % Eosinophils (%) (Auto) 0.2 % Basophils (%) (Auto) 0.4 % Neutrophils # (Auto) 7.4 TH/MM3 Lymphocytes # (Auto) 1.3 TH/MM3 Monocytes # (Auto) 0.8 TH/MM3 Eosinophils # (Auto) 0.0 TH/MM3 Basophils # (Auto) 0.0 TH/MM3 CBC Comment DIFF FINAL Differential Comment Sodium Level 140 MEQ/L Potassium Level 3.1 MEQ/L Chloride Level 106 MEQ/L Carbon Dioxide Level 26.1 MEQ/L Anion Gap 8 MEQ/L Blood Urea Nitrogen 9 MG/DL Creatinine 0.68 MG/DL Estimat Glomerular Filtration 94 ML/MIN Rate Random Glucose 64 MG/DL Calcium Level 8.6 MG/DL Total Bilirubin 0.2 MG/DL Aspartate Amino Transf 11 U/L (AST/SGOT) Alanine Aminotransferase 14 U/L (ALT/SGPT) Alkaline Phosphatase 74 U/L Total Protein 6.7 GM/DL Albumin 3.3 GM/DL Lipase 225 U/L [facility] Supervised Visit with ISSAC: No Diagnosis Primary Impression: Chronic abdominal pain Additional Impressions: Intractable vomiting Qualified Code: G43.A1 - Intractable cyclical vomiting with nausea Hypokalemia Referrals: Primary Care Physician 3 days Additional Instruction: Please return to the ER if the condition worsens or any other new concerns. Follow-up with your primary care. Please keep the appointment given to you by a vb net developer for the upper endoscopy. Take Zofran as needed every 6 hours for nausea. Med/Other Pt SpecificInfo: No Change to Meds Disposition: 01 DISCHARGE HOME Condition: Stable Van Hart MD Jun 30, 2016 08:14
[2016-06-30] MEDS ORDERED: POTASSIUM CHLORIDE 20 MEQ CONTROLLED RELEASE TAB PO ONE (08:15)
[2016-06-30] MEDS ORDERED: ACETAMINOPHEN/HYDROcodone 325 MG/5 MG TAB PO ONE (08:15)
[2016-07-04] MEDS ORDERED: DULO1CAP3 PO (17:05)
[2016-07-04] MEDS ORDERED: XANA1TAB2 PO (17:05)
[2016-07-05] MEDS ORDERED: TRAZ300T2 PO (07:04)
[2016-07-05] MEDS ORDERED: FIORINAL2 PO (07:04)
[2016-07-24] MEDS ORDERED: GUAI1SOL7 PO (15:22)
[2016-07-24] MEDS ORDERED: ALBUAER3 INH (15:22)
[2016-07-24] MEDS ORDERED: DULO1CAP3 PO (15:23)
[2016-09-17] MEDS ORDERED: CARPAL TUNNEL W1 MIS ×2 (14:39→14:54)
[2016-09-17] MEDS ORDERED: XANA1TAB2 PO (14:45)
[2016-09-17] MEDS ORDERED: ZOFR4TAB3 SL (14:45)
[2016-09-17] MEDS ORDERED: GABA300C5 PO (14:49)
[2016-09-18] MEDS ORDERED: TRIA40P I-ARTICULR ×2 (11:36→11:56)
== END 2016-06-30 09:00 | disposition home or self-care (01) ==
LOC: NEPE 05:44
DX: G89.29 Other chronic pain (principal); R10.9 Unspecified abdominal pain; G43.A1 Cyclical vomiting, in migraine, intractable; E87.6 Hypokalemia
CPT/HCPCS: 80053; 83690; 85025; 99284; J1642

== ENCOUNTER 2016-07-07 16:03 | Inpatient (IN) | payer MEDICARE, OTHER ==
[~2016-07-07] VITALS: Ht 165.1 cm; Wt 116.7 kg
[~2016-07-07 16:03] MED LIST changes: -DULO-39 PO; +DULO1CAP3 PO; -DULO20 PO; -LINA145C PO; +NALO1TAB PO; +pancreatic enzymes
[2016-07-07 16:07] VITALS: BP 149/70; PULSE 77; RESP 17; TEMP 97.7; O2SAT 95
[2016-07-07] MEDS ORDERED: SODIUM CHLOR 0.9% 1000 ML INJ 1,000 ML IV SCH (16:32)
[2016-07-07] MEDS ORDERED: HYDR5TAB64 PO (16:36)
[2016-07-07] MEDS ORDERED: DILAUDID PAIN PUMP (16:36)
[2016-07-07] MEDS ORDERED: METR-1 PO (16:37)
[2016-07-07] MEDS ORDERED: METOCLOPRAMIDE HCL 10 MG/2 ML VIAL IV PUSH ONE (16:45)
[2016-07-07] MEDS ORDERED: SODIUM CHLORIDE 0.9% FLUSH 5 ML FLUSH IVF PRN (16:45)
[2016-07-07] MEDS ORDERED: DICYCLOMINE HCL 20 MG/2 ML VIAL IM ONE (16:45)
[2016-07-07] MEDS ORDERED: DEXTROSE 50% IN WATER 50 ML VIAL(D50) IV PUSH ONE ×3 (16:45→20:00)
--- NOTE | 2016-07-07 17:04 | PD ---
HPI Chief Complaint: Abdominal Pain Time Seen by Provider: 16:30 Travel History International Travel<30 days: No Contact w/Intl Traveler<30days: No Traveled to known affect area: No History of Present Illness HPI 46-year-old female history of chronic abdominal pain, chronic back pain, multiple abdominal surgeries in the past, frequent episodes of hypoglycemia. She presents for evaluation of abdominal pain and hypoglycemia. She reports abdominal pain for the past few years with history of gastric surgery with complications, recurrent pancreatitis. She reports that last week she was hospitalized at [facility] in [place] for these symptoms. She was discharged 5 days ago with prescriptions for hydrocortisone and Flagyl and probiotics. She reports that they suspect adrenal insufficiency. She's had nausea, difficulty eating and today she became hypoglycemic with prompted evaluation. The patient reports the pain is an aching pain primarily in the epigastrium that is worse when she eats. She endorses nausea, occasional vomiting, occasional diarrhea. She reports that she has an appointment for an upcoming colonoscopy in 5 days with her mortar mixer Dr. Parmar. She has an appointment for an MRI of the lumbar spine in 3 days. She currently uses Dilaudid pump for chronic pain as well as Percocet for breakthrough pain. She takes Zofran, Marinol for nausea. She has no other complaints at this time. [facility] Past Medical History Anxiety: Yes Depression: No Heart Rhythm Problems: No Cancer: No Cardiovascular Problems: No High Cholesterol: No Chest Pain: No Congestive Heart Failure: No Diabetes: Yes (HYPOGLYCEMIA) Patient Takes Glucophage: No Diminished Hearing: No Diverticulitis: Yes Endocrine: No Gastrointestinal Disorders: Yes (GASTRITIS,ESOPHAGITIS, N&V, HX ULCERS) Genitourinary: Yes (PROLAPSED BLADDER) Hepatitis: No Hiatal Hernia: No Immune Disorder: No Implanted Vascular Access Dvce: Yes Medical other: Yes (ABDOMINAL HERNIA) Musculoskeletal: Yes (DDD, LUMBAR HERNIATED DISC L5-S1) Neurologic: Yes (MIGRAINES, "BLACK OUT SPELLS") Psychiatric: Yes (CLAUSTROPHOBIA) Reproductive: No Respiratory: No Migraines: Yes Pancreatitis: Yes Seizures: Yes Thyroid Disease: No Ulcer: Yes (HEALED GASTRIC) ?: Not : 2 Para: 2 Tubal Ligation: Yes Past Surgical History Abdominal Surgery: Yes (SLEEVE SX ON 11/04/13,CHOLY) AICD: No Body Medical Devices: NONE Cardiac Surgery: No Section: Yes (x2) Cholecystectomy: Yes (LAP. IN 2011) Ear Surgery: No Eye Surgery: No Genitourinary Surgery: No Gynecologic Surgery: Yes (C SECTION (X2), TUBAL LIG.) Hysterectomy: Yes Joint Replacement: No Oral Surgery: No Pacemaker: No Thoracic Surgery: No Other Surgery: Yes (LEFT THIGH I&D FOR MRSA) Social History Alcohol Use: No Tobacco Use: No (never) Substance Use: No Allergies-Medications (Allergen,Severity, Reaction): Coded Allergies: Cipro (Verified Allergy, Severe, Hives, ABD PAIN, 07/07/16) Doxycycline (Verified Allergy, Severe, SWELLING, HIVES, 07/07/16) Nonsteroidal Anti-Inflammatory Agts (Verified Allergy, Severe, 07/07/16) DUE TO A SURGICAL PROCEDURE IN THE PAST Cleocin (Verified Allergy, Intermediate, HIVES, 07/07/16) Contrast Media (Verified Allergy, Intermediate, Hives, 07/07/16) Vancomycin (Verified Allergy, Intermediate, HIVES, 07/07/16) Biaxin (Verified Adverse Reaction, Intermediate, NAUSEA, 07/07/16) Motrin (Verified Adverse Reaction, Intermediate, ULCERS, ABD PAIN, 07/07/16) PT HAS ULCERS, DOES NOT WISH TO TAKE. Toradol (Verified Adverse Reaction, Intermediate, 07/07/16) ABDOMINAL PAIN Bactrim (Verified Adverse Reaction, Mild, abdominal pain, 07/07/16) Has had since without difficulty (reaction was years ago) Reported Meds & Prescriptions Reported Meds & Active Scripts Active Trazodone (Trazodone HCl) 300 Mg Tab 300 Mg PO HS Fiorinal (Butalbital/Aspirin/Caffeine) 50-325-40 Mg Cap 1 Cap PO Q6HR PRN Do not exceed 6 capsules/day. Duloxetine DR (Duloxetine HCl) 60 Mg Capdr 60 Mg PO DAILY Xanax (Alprazolam) 1 Mg Tab 1 Mg PO BID PRN Reported Flagyl (Metronidazole) 500 Mg Tab Unknown Dose PO TID [dilaudid pain pump] Hydrocortisone 5 Mg Tab Unknown Dose PO BID Take with food to decrease GI upset Movantik (Naloxegol) 12.5 Mg Tab 12.5 Mg PO DAILY [pancreatic enzymes] Zanaflex (Tizanidine HCl) 4 Mg Cap 4 Mg PO TID PRN Marinol (Dronabinol) 5 Mg Cap 5 Mg PO BID Percocet (Oxycodone-Acetaminophen) 10-325 mg Tab 1 Tab PO TID PRN Zofran Odt (Ondansetron Odt) 4 Mg Tab 4 Mg SL Q6HR PRN Review of Systems Except as stated in HPI: all other systems reviewed are Neg Physical Exam Narrative GENERAL: Well-developed well-nourished female in no acute distress SKIN: Warm and dry. HEAD: Atraumatic. Normocephalic. EYES: Pupils equal and round. No scleral icterus. No injection or drainage. ENT: No nasal bleeding or discharge. Mucous membranes pink and moist. NECK: Trachea midline. No JVD. CARDIOVASCULAR: Regular rate and rhythm. No murmur appreciated. RESPIRATORY: No accessory muscle use. Clear to auscultation. Breath sounds equal bilaterally. GASTROINTESTINAL: Abdomen soft, there is mild tenderness to palpation in the epigastrium. No guarding. MUSCULOSKELETAL: No obvious deformities. No edema. NEUROLOGICAL: Awake and alert. No obvious cranial nerve deficits. Motor grossly within normal limits. Normal speech. PSYCHIATRIC: Depressed mood. Data Data Last Documented VS Vital Signs Date Time Temp Pulse Resp B/P Pulse Ox O2 Delivery O2 Flow Rate FiO2 07/07/16 19:08 87 15 123/65 96 Room Air 07/07/16 16:07 97.7 Orders Complete Blood Count With Diff (07/07/16 16:32) Comprehensive Metabolic Panel (07/07/16 16:32) Lipase (07/07/16 16:32) Urinalysis - C+S If Indicated (07/07/16 16:32) Iv Access Insert/Monitor (07/07/16 16:32) Ecg Monitoring (07/07/16 16:32) Oximetry (07/07/16 16:32) Sodium Chlor 0.9% 1000 Ml Inj (Ns 1000 M (07/07/16 16:32) Sodium Chloride 0.9% Flush (Ns Flush) (07/07/16 16:45) Dicyclomine Inj (Bentyl Inj) (07/07/16 16:45) Dextrose 50% In [place] (Vial) Inj (D50w (Vi (07/07/16 16:45) Metoclopramide Inj (Reglan Inj) (07/07/16 16:45) Ondansetron Inj (Zofran Inj) (07/07/16 17:45) Dextrose 50% In [place] (Vial) Inj (D50w (Vi (07/07/16 18:15) Hydromorphone Pf Inj (Dilaudid Pf Inj) (07/07/16 18:15) Ondansetron Inj (Zofran Inj) (07/07/16 19:30) Bedside Glucose PAUL.Q1H (07/07/16 19:53) Dextrose 50% In [place] (Vial) Inj (D50w (Vi (07/07/16 20:00) Glucagon Inj (Glucagon Inj) (07/07/16 20:00) Dext 5%-Nacl 0.9% 1000 Ml Inj (D5w-Ns 10 (07/07/16 19:53) Admit Order (Ed Use Only) (07/07/16 20:00) Labs Laboratory Tests Test 07/07/16 07/07/16 17:00 18:00 White Blood Count 6.0 TH/MM3 Red Blood Count 3.71 MIL/MM3 Hemoglobin 10.1 GM/DL Hematocrit 29.6 % Mean Corpuscular Volume 79.9 FL Mean Corpuscular Hemoglobin 27.3 PG Mean Corpuscular Hemoglobin 34.2 % Concent Red Cell Distribution Width 13.9 % Platelet Count 241 TH/MM3 Mean Platelet Volume 7.6 FL Neutrophils (%) (Auto) 76.0 % Lymphocytes (%) (Auto) 12.9 % Monocytes (%) (Auto) 9.6 % Eosinophils (%) (Auto) 1.4 % Basophils (%) (Auto) 0.1 % Neutrophils # (Auto) 4.5 TH/MM3 Lymphocytes # (Auto) 0.8 TH/MM3 Monocytes # (Auto) 0.6 TH/MM3 Eosinophils # (Auto) 0.1 TH/MM3 Basophils # (Auto) 0.0 TH/MM3 CBC Comment DIFF FINAL Differential Comment Sodium Level 140 MEQ/L Potassium Level 4.0 MEQ/L Chloride Level 105 MEQ/L Carbon Dioxide Level 27.5 MEQ/L Anion Gap 8 MEQ/L Blood Urea Nitrogen 9 MG/DL Creatinine 0.61 MG/DL Estimat Glomerular Filtration 106 ML/MIN Rate Random Glucose 28 MG/DL Calcium Level 8.0 MG/DL Total Bilirubin 0.2 MG/DL Aspartate Amino Transf 10 U/L (AST/SGOT) Alanine Aminotransferase 14 U/L (ALT/SGPT) Alkaline Phosphatase 63 U/L Total Protein 6.1 GM/DL Albumin 2.9 GM/DL Lipase 179 U/L Urine Color COLORLESS Urine Turbidity CLEAR Urine pH 7.5 Urine Specific [place] 1.004 Urine Protein NEG mg/dL Urine Glucose (UA) NEG mg/dL Urine Ketones NEG mg/dL Urine Occult Blood NEG Urine Nitrite NEG Urine Bilirubin NEG Urine Urobilinogen LESS THAN 2.0 MG/DL Urine Leukocyte Esterase NEG Urine WBC LESS THAN 1 /hpf Urine Squamous Epithelial <1 /hpf Cells Urine Bacteria /hpf Microscopic Urinalysis Comment CULT NOT INDICATED MDM Medical Decision Making Medical Screen Exam Complete: Yes Emergency Medical Condition: Yes Medical Record Reviewed: Yes Differential Diagnosis Chronic abdominal pain, pancreatitis, colitis, diverticulitis, obstruction Narrative Course 46-year-old female with chronic abdominal pain, frequent hypoglycemic episodes presents for evaluation of the same. For that the patient has good follow-up with an appointment with her mortar mixer in 5 days. Plan is for basic lab work, Reggie Henry. The patient declined Harry that he would prefer Zofran. She is given a dose. She was given a single dose of Dilaudid after discussing with the patient that increasing large doses of opiates would not be beneficial to her. The patient's CBC and CMP and urinalysis results of been reviewed. Glucose is 28 and CMP. She is alert and oriented. She was given D50 and repeat blood glucose was 48. The patient was given another dose of D50 and she also had a hole plate of food, positive. She drank some orange juice. Repeat blood glucose was 81 at 1908. At 1950 was repeated and was in the 60s. Therefore the patient will be admitted for observation for these hyperglycemic episodes. Discussed with Dr. Ernst who is agreeable with admission to Dr. Powell. Diagnosis Primary Impression: Hypoglycemia Admitting Information Admitting Physician Requests: Observation Saad Gold Jul 07, 2016 17:04
[2016-07-07 17:05] VITALS: O2SAT 100
[2016-07-07 17:32] LABS: AUTOMATED NEUTROPHIL # 4.5 TH/MM3 (1.8-7.7); BASOPHIL % 0.1 % (0.0-2.0); EOSINOPHIL # 0.1 TH/MM3 (0-0.4); EOSINOPHIL % 1.4 % (0.0-4.0); HEMATOCRIT 29.6 % (35.0-46.0); HEMO FLAGS DIFF FINAL; LYMPH % 12.9 % (9.0-44.0); LYMPHOCYTE # 0.8 TH/MM3 (1.0-4.8); MEAN CELL VOLUME 79.9 FL (80.0-100.0); MEAN CORPUSCULAR HEMOGLOBIN 27.3 PG (27.0-34.0); MEAN CORPUSCULAR HGB CONC 34.2 % (32.0-36.0); MONO % 9.6 % (0.0-8.0); PLATELET COUNT 241 TH/MM3 (150-450); RED BLOOD COUNT 3.71 MIL/MM3 (4.00-5.30); RED CELL DISTRIBUTION WIDTH 13.9 % (11.6-17.2)
[2016-07-07] MEDS ORDERED: ONDANSETRON HCL 4 MG/2 ML VIAL IV PUSH ONE ×2 (17:45→19:30)
[2016-07-07 17:52] LABS: ALKALINE PHOSPHATASE 63 U/L (45-117); ALT (GPT) 14 U/L (10-53); ANION GAP 8 MEQ/L (5-15); AST (GOT) 10 U/L (15-37); BICARBONATE 27.5 MEQ/L (21.0-32.0); BLOOD UREA NITROGEN 9 MG/DL (7-18); CHLORIDE 105 MEQ/L (98-107); GLOMERULAR FILTRATION RATE 106 ML/MIN (>89); SODIUM (NA) 140 MEQ/L (136-145); TOTAL BILIRUBIN ADULT 0.2 MG/DL (0.2-1.0)
[2016-07-07] MEDS ORDERED: HYDROmorphone HCL PF 1 MG/ML VIAL IV PUSH ONE (18:15)
[2016-07-07 18:17] LABS: BLOOD, URINE NEG (NEG); COMMENT (UR) CULT NOT INDICATED; CULTURE IF INDICATED CULT NOT INDICATED; GLUCOSE,URINE NEG (NEG); KETONE, URINE NEG (NEG); NITRITE,URINE NEG (NEG); PH, URINE 7.5 (5.0-8.5); SQUAMOUS EPITHELIAL CELL URINE <1 /hpf (0-5); URINE COLOR COLORLESS (YELLW/STRAW)
[2016-07-07 18:39] VITALS: BP 114/58; PULSE 80; RESP 20; O2SAT 97
[2016-07-07 19:08] VITALS: BP 123/65; PULSE 87; RESP 15; O2SAT 96
--- NOTE | 2016-07-07 19:23 | PD ---
Data Data Last Documented VS Vital Signs Date Time Temp Pulse Resp B/P Pulse Ox O2 Delivery O2 Flow Rate FiO2 07/07/16 19:08 87 15 123/65 96 Room Air 07/07/16 16:07 97.7 Orders Complete Blood Count With Diff (07/07/16 16:32) Comprehensive Metabolic Panel (07/07/16 16:32) Lipase (07/07/16 16:32) Urinalysis - C+S If Indicated (07/07/16 16:32) Iv Access Insert/Monitor (07/07/16 16:32) Ecg Monitoring (07/07/16 16:32) Oximetry (07/07/16 16:32) Sodium Chlor 0.9% 1000 Ml Inj (Ns 1000 M (07/07/16 16:32) Sodium Chloride 0.9% Flush (Ns Flush) (07/07/16 16:45) Dicyclomine Inj (Bentyl Inj) (07/07/16 16:45) Dextrose 50% In Brittany (Vial) Inj (D50w (Vi (07/07/16 16:45) Metoclopramide Inj (Reglan Inj) (07/07/16 16:45) Ondansetron Inj (Zofran Inj) (07/07/16 17:45) Dextrose 50% In Brittany (Vial) Inj (D50w (Vi (07/07/16 18:15) Hydromorphone Pf Inj (Dilaudid Pf Inj) (07/07/16 18:15) Ondansetron Inj (Zofran Inj) (07/07/16 19:30) Labs Laboratory Tests Test 07/07/16 07/07/16 17:00 18:00 White Blood Count 6.0 TH/MM3 Red Blood Count 3.71 MIL/MM3 Hemoglobin 10.1 GM/DL Hematocrit 29.6 % Mean Corpuscular Volume 79.9 FL Mean Corpuscular Hemoglobin 27.3 PG Mean Corpuscular Hemoglobin 34.2 % Concent Red Cell Distribution Width 13.9 % Platelet Count 241 TH/MM3 Mean Platelet Volume 7.6 FL Neutrophils (%) (Auto) 76.0 % Lymphocytes (%) (Auto) 12.9 % Monocytes (%) (Auto) 9.6 % Eosinophils (%) (Auto) 1.4 % Basophils (%) (Auto) 0.1 % Neutrophils # (Auto) 4.5 TH/MM3 Lymphocytes # (Auto) 0.8 TH/MM3 Monocytes # (Auto) 0.6 TH/MM3 Eosinophils # (Auto) 0.1 TH/MM3 Basophils # (Auto) 0.0 TH/MM3 CBC Comment DIFF FINAL Differential Comment Sodium Level 140 MEQ/L Potassium Level 4.0 MEQ/L Chloride Level 105 MEQ/L Carbon Dioxide Level 27.5 MEQ/L Anion Gap 8 MEQ/L Blood Urea Nitrogen 9 MG/DL Creatinine 0.61 MG/DL Estimat Glomerular Filtration 106 ML/MIN Rate Random Glucose 28 MG/DL Calcium Level 8.0 MG/DL Total Bilirubin 0.2 MG/DL Aspartate Amino Transf 10 U/L (AST/SGOT) Alanine Aminotransferase 14 U/L (ALT/SGPT) Alkaline Phosphatase 63 U/L Total Protein 6.1 GM/DL Albumin 2.9 GM/DL Lipase 179 U/L Urine Color COLORLESS Urine Turbidity CLEAR Urine pH 7.5 Urine Specific Drew 1.004 Urine Protein NEG mg/dL Urine Glucose (UA) NEG mg/dL Urine Ketones NEG mg/dL Urine Occult Blood NEG Urine Nitrite NEG Urine Bilirubin NEG Urine Urobilinogen LESS THAN 2.0 MG/DL Urine Leukocyte Esterase NEG Urine WBC LESS THAN 1 /hpf Urine Squamous Epithelial <1 /hpf Cells Urine Bacteria /hpf Microscopic Urinalysis Comment CULT NOT INDICATED MDM Supervised Visit with [facility]: Yes Narrative Course The history, exam, and medical decision-making in the associated midlevel provider note were completed with my assistance. I reviewed and agree with the findings presented. I attest that I had a [id number] encounter with the patient on the same day, and personally performed and documented my assessment and findings in the medical record. *My assessment and Findings: This is a 46-year-old female who has a history of chronic abdominal pain and cyclic vomiting who presents to the emergency department with symptoms that are typical of her prior. She was placed on a monitor and an IV was established. She was given antiemetics. She was able to eat cost and drink juice and had no further episodes of vomiting. She initially had a blood sugar in the 20s but was given D50 as well as food. Given she was able to keep food down she should be able to be discharged and continue to eat at home now that her symptoms are managed. If she drops her blood sugar again she'll be admitted. Claudia Hicks MD Jul 07, 2016 19:23
[2016-07-07] MEDS ORDERED: DEXT 5%-NACL 0.9% 1000 ML INJ 1,000 ML IV SCH (19:53)
[2016-07-07] MEDS ORDERED: GLUCAGON 1 MG/ML VIAL IM ONE (20:00)
--- NOTE | 2016-07-07 20:14 | HHI.HP ---
[facility] Service Family Medicine Primary Care Physician Wanda Carreraman Admission Diagnosis hypoglycemia Diagnoses: International Travel<30 Days: No Contact w/Intl Traveler<30days: No Known Affected Area: No History of Present Illness 45yo female with PMH significant for recurrent hypoglycemia, PUD, anemia and recurrent pancreatitis. Presented today due to symptoms of hypoglycemia, abdominal pain, nausea/vomiting. Of note, patient has an extensive history of recurrent hypoglycemia, abdominal pain and cyclical vomiting that has not resolved in over a year. When I first started taking care of patient, she had a history of recurrent hypoglycemia with unknown etiology. She frequently follows up at [facility] and was hospitalized at [facility] for the same symptoms. Her most recent hospitalization was at [facility] on 06/30. She does not remember her diagnosis but remembers being told to be on low-dose prednisone but she did not want to take it due to weight gain. In regards to this presentation, nausea, vomiting, diarrhea, abdominal pain started 2 days ago but has progressively worsened. She has been unable to keep any food down during this time and has had loss of appetite. Of note, patient was seen in clinic on 07/05 at which time she was already complaining of fecal incontinence that started about 5 weeks ago. She was seen by her pain doctor that placed her Dilaudid pump a few days ago and increased her Dilaudid dosage to 0.1239 mg/day. Last episode of diarrhea was today but has had a total 3-4 episodes today. Described as foul smelling without blood. Starts out with solid pieces but then progresses to liquid. She did start back on her chronic Flagyl 3 days ago. Denies any fevers but does endorse subjective hot flashes and chills. In relation to her abdominal pain, it is located in the epigastric and RUQ. Described as abdominal pressure, throbbing and sharp pain that has also progressively worsened. She did start back on her low-dose prednisone of unknown mg yesterday. Review of Systems Constitutional: COMPLAINS OF: Weight loss, Chills, Change in appetite, DENIES : Fever Ears, nose, mouth, throat: DENIES: Throat pain, Hoarseness, Running Nose Respiratory: DENIES: Cough, Sputum production, Shortness of breath Cardiovascular: DENIES: Chest pain, Palpitations, Lower Extremity Edema Gastrointestinal: COMPLAINS OF: Abdominal pain, Diarrhea, Nausea, Vomiting, DENIES: Black stools, Bloody stools, Constipation Genitourinary: DENIES: Hematuria, Dysuria Musculoskeletal: COMPLAINS OF: Back pain Integumentary: DENIES: Rash Past Family Social History Past Medical History Migraine headaches Anxiety Chronic Low Back Pain PUD Complications after gastric surgery - hospitalized for several months with abscesses May-Jul 2013, Recurrent pancreatitis since gastric surgery- followed by GI at [facility] Upper Extremity DVT x2 (2014 and 2015) due to lines Anemia Past Surgical History Cholecystectomy x 2 Tubal Ligation Back surgery (L4/L5 discectomy) Gastric sleeve surgery February 2014 Abscess drainage and drain placement as well as J-tube placement June 2014. Hysterectomy Bladder sling Dilaudid pump Reported Medications Reported Meds & Active Scripts Active Trazodone (Trazodone HCl) 300 Mg Tab 300 Mg PO HS Fiorinal (Butalbital/Aspirin/Caffeine) 50-325-40 Mg Cap 1 Cap PO Q6HR PRN Do not exceed 6 capsules/day. Duloxetine DR (Duloxetine HCl) 60 Mg Capdr 60 Mg PO DAILY Xanax (Alprazolam) 1 Mg Tab 1 Mg PO BID PRN Reported [dilaudid pain pump] Hydrocortisone 5 Mg Tab Unknown Dose PO BID Take with food to decrease GI upset Movantik (Naloxegol) 12.5 Mg Tab 12.5 Mg PO DAILY [pancreatic enzymes] Zanaflex (Tizanidine HCl) 4 Mg Cap 4 Mg PO TID PRN Marinol (Dronabinol) 5 Mg Cap 5 Mg PO BID Percocet (Oxycodone-Acetaminophen) 10-325 mg Tab 1 Tab PO TID PRN Zofran Odt (Ondansetron Odt) 4 Mg Tab 4 Mg SL Q6HR PRN Allergies: Coded Allergies: Cipro (Verified Allergy, Severe, Hives, ABD PAIN, 07/07/16) Doxycycline (Verified Allergy, Severe, SWELLING, HIVES, 07/07/16) Nonsteroidal Anti-Inflammatory Agts (Verified Allergy, Severe, 07/07/16) DUE TO A SURGICAL PROCEDURE IN THE PAST Cleocin (Verified Allergy, Intermediate, HIVES, 07/07/16) Contrast Media (Verified Allergy, Intermediate, Hives, 07/07/16) Vancomycin (Verified Allergy, Intermediate, HIVES, 07/07/16) Biaxin (Verified Adverse Reaction, Intermediate, NAUSEA, 07/07/16) Motrin (Verified Adverse Reaction, Intermediate, ULCERS, ABD PAIN, 07/07/16) PT HAS ULCERS, DOES NOT WISH TO TAKE. Toradol (Verified Adverse Reaction, Intermediate, 07/07/16) ABDOMINAL PAIN Bactrim (Verified Adverse Reaction, Mild, abdominal pain, 07/07/16) Has had since without difficulty (reaction was years ago) Family History Mother - Healthy. Maternal Aunt- Breast Ca, one with stomach Ca (and two others with unknown cancers). Father - skin cancer. Breast cancer in paternal aunt. Cousin with melanoma. Grandmother with unknown blood disorder Social History Denies tobacco, alcohol and illicit drug use. Physical Exam Vital Signs Vital Signs Date Time Temp Pulse Resp B/P Pulse Ox O2 Delivery O2 Flow Rate FiO2 07/07/16 19:08 87 15 123/65 96 Room Air 07/07/16 19:07 15 07/07/16 18:39 80 20 114/58 97 Room Air 07/07/16 17:05 100 Room Air 07/07/16 16:07 97.7 77 17 149/70 95 Physical Exam GENERAL: This is a well-nourished, well-developed patient, in no apparent distress. Obese female SKIN: No rashes, ecchymoses or lesions. Cool and dry. EYES: Pupils equal round and reactive. Extraocular motions intact. No scleral icterus. No injection or drainage. ENT: Nose without bleeding, purulent drainage. Throat without erythema, tonsillar hypertrophy or exudate. Uvula midline. Airway patent. NECK: No lymphadenopathy. CARDIOVASCULAR: Regular rate and rhythm without murmurs, gallops, or rubs. RESPIRATORY: Clear to auscultation. Breath sounds equal bilaterally. No wheezes , rales, or rhonchi. GASTROINTESTINAL: Abdomen soft, nondistended. Tenderness to palpation or epigastric and RUQ. No rebound or guarding. MUSCULOSKELETAL: Extremities without clubbing, cyanosis, or edema. No calf tenderness. NEUROLOGICAL: Awake and alert. Motor and sensory grossly within normal limits. Normal speech. Laboratory Laboratory Tests Test 07/07/16 07/07/16 17:00 18:00 White Blood Count 6.0 Red Blood Count 3.71 Hemoglobin 10.1 Hematocrit 29.6 Mean Corpuscular Volume 79.9 Mean Corpuscular Hemoglobin 27.3 Mean Corpuscular Hemoglobin 34.2 Concent Red Cell Distribution Width 13.9 Platelet Count 241 Mean Platelet Volume 7.6 Neutrophils (%) (Auto) 76.0 Lymphocytes (%) (Auto) 12.9 Monocytes (%) (Auto) 9.6 Eosinophils (%) (Auto) 1.4 Basophils (%) (Auto) 0.1 Neutrophils # (Auto) 4.5 Lymphocytes # (Auto) 0.8 Monocytes # (Auto) 0.6 Eosinophils # (Auto) 0.1 Basophils # (Auto) 0.0 CBC Comment DIFF FINAL Differential Comment Sodium Level 140 Potassium Level 4.0 Chloride Level 105 Carbon Dioxide Level 27.5 Anion Gap 8 Blood Urea Nitrogen 9 Creatinine 0.61 Estimat Glomerular Filtration 106 Rate Random Glucose 28 Calcium Level 8.0 Total Bilirubin 0.2 Aspartate Amino Transf 10 (AST/SGOT) Alanine Aminotransferase 14 (ALT/SGPT) Alkaline Phosphatase 63 Total Protein 6.1 Albumin 2.9 Lipase 179 Urine Color COLORLESS Urine Turbidity CLEAR Urine pH 7.5 Urine Specific [place] 1.004 Urine Protein NEG Urine Glucose (UA) NEG Urine Ketones NEG Urine Occult Blood NEG Urine Nitrite NEG Urine Bilirubin NEG Urine Urobilinogen LESS THAN 2.0 Urine Leukocyte Esterase NEG Urine WBC LESS THAN 1 Urine Squamous Epithelial <1 Cells Urine Bacteria Microscopic Urinalysis Comment CULT NOT INDICATED Result Diagram: 07/07/16 1700 07/07/16 1700 Assessment and Plan Assessment and Plan 45yo female with PMH significant for recurrent hypoglycemia, PUD, anemia and recurrent pancreatitis. Admitted for persistent hypoglycemia. Code Status Full Discussed Condition With Dr. Tameka Devries Problem List: (1) Hypoglycemia Status: Acute Plan: History of recurrent episodes of hypoglycemia that has required multiple trips to the ED and hospitalizations. Has been going on for many months. Etiology unclear. Has continued to have hypoglycemic episodes in the ED despite D50 and eating. There may possibly be a component of adrenal insufficiency but this is unclear. Will evaluate for other etiologies -Bedside glucose checks q1hr x3 consecutive glucose >90, then can continue checks q2hrs -Electrolytes otherwise unremarkable including liver enzymes, lipase. -UA unremarkable -Amylase, cortisol, proinsulin, beta hydroxybutryate, C peptide, insulin levels ordered -Records from [facility] requested Imaging: * CT abdomen/pelvis 06/23/16: No acute findings. No mention of masses * Abdomen MRI ordered to evaluate for masses Medications: * D10W at 100mls/hr * Prednisone 5 mg daily * Reglan and Zofran for nausea * Continued home dronabinol for nausea (2) Diarrhea Status: Acute Plan: Reports worsening symptoms of diarrhea without blood. HX of gastric bypass surgery. Described as foul order. Was recently seen by GI and has a colonoscopy planned for next week. Patient also reported at her recent clinic visit that she's been having fecal incontinence since the placement of her Dilaudid pump 5wks ago. GI suspected symptoms were due to bacterial overgrowth. Outpatient MRI had been ordered but not yet obtained. Less likely to be due to infectious etiology. -C. difficile due to chronic use of metronidazole -MRI of lumbar spine ordered while inpatient. -hold home Naloxegol (3) Chronic abdominal pain Status: Chronic Plan: Patient continues to have chronic abdominal pain but reports that this is slightly different than prior episodes. Lipase unremarkable. -Will hold on repeat CT as patient recently had one on 06/23/16. Additionally lipase and liver enzymes are unremarkable (4) Intractable vomiting Status: Acute Plan: see plan under hypoglycemia (5) Nutrition, metabolism, and development symptoms Status: Acute Plan: Diet: Regular Fluids: See above Electrolytes: hypoglycemia but otherwise unremarkable. GI PPX: protonix DVT PPX: Lovenox Chronic conditions: * Anxiety/Depression: Duloxetine 60mg daily, Xanax * Insomnia: Trazodone 300mg daily Problem Qualifiers (1) Intractable vomiting: Wanda Russo MD R2 Jul 07, 2016 20:14
[2016-07-07] MEDS ORDERED: SODIUM CHLORIDE 0.9% FLUSH 5 ML FLUSH FLUSH PRN (20:30)
[2016-07-07] MEDS ORDERED: NALOXONE HCL 0.4 MG/ML AMP IV PRN ×2 (20:30→21:45)
[2016-07-07] MEDS ORDERED: ACETAMINOPHEN 325 MG TAB PO PRN ×2 (20:30→21:45)
[2016-07-07] MEDS ORDERED: ENALAPRILAT 1.25 MG/ML VIAL IV PRN (20:45)
[2016-07-07] MEDS: SODIUM CHLORIDE 0.9% FLUSH 5 ML FLUSH FLUSH SCH (21:00)
[2016-07-07 21:07] VITALS: O2SAT 96
[2016-07-07] MEDS ORDERED: DEXTROSE 50% IN WATER 50 ML VIAL(D50) IV PUSH STA ×2 (21:07→23:14)
[2016-07-07] MEDS ORDERED: DEXTROSE 50% IN WATER 50 ML SYRINGE ONE (21:13)
[2016-07-07] MEDS ORDERED: ENOXAPARIN SODIUM 30 MG/0.3 ML SYRINGE SQ SCH (21:15)
[2016-07-07] MEDS ORDERED: METOCLOPRAMIDE HCL 10 MG/2 ML VIAL IV PRN (21:45)
[2016-07-07] MEDS ORDERED: oxyCODONE/ACETAMINOPHEN 10 MG/325 MG TAB PO PRN (21:45)
[2016-07-07] MEDS: SODIUM CHLORIDE 23.4% INJ 154 MEQ in DEXTROSE 10% INJ 1,000 ML IV SCH (22:08)
[2016-07-07 22:52] LABS: AMYLASE 35 U/L (25-115)
[2016-07-07] MEDS: PANTOPRAZOLE SODIUM 40 MG VIAL IV PUSH SCH (22:58)
[2016-07-07 23:07] VITALS: BP 106/52; PULSE 86; RESP 16; O2SAT 97
[2016-07-07] MEDS: HYDROmorphone HCL PF 1 MG/ML VIAL IV PRN (23:20)
[2016-07-07] MEDS ORDERED: DEXAMETHASONE SOD PHOS 4 MG/ML VIAL IV PUSH ONE (23:45)
[2016-07-07] MEDS: ONDANSETRON HCL 4 MG/2 ML VIAL IVP PRN (23:53)
[2016-07-08] VITALS (7 sets, daily range): BP systolic 116–142; BP diastolic 60–81; PULSE 75–94; RESP 12–18; TEMP 98.3–98.7; O2SAT 95–99
[2016-07-08] MEDS: HYDROmorphone HCL PF 1 MG/ML VIAL IV PRN ×5 (03:36→21:19)
[2016-07-08 04:02] LABS: AUTOMATED NEUTROPHIL # 4.8 TH/MM3 (1.8-7.7); BASOPHIL % 0.3 % (0.0-2.0); EOSINOPHIL % 0.7 % (0.0-4.0); HEMATOCRIT 30.5 % (35.0-46.0); HEMO FLAGS DIFF FINAL; LYMPH % 8.7 % (9.0-44.0); LYMPHOCYTE # 0.5 TH/MM3 (1.0-4.8); MEAN CELL VOLUME 80.7 FL (80.0-100.0); MEAN CORPUSCULAR HEMOGLOBIN 26.6 PG (27.0-34.0); MONO % 1.8 % (0.0-8.0); NEUT % 88.5 % (16.0-70.0); PLATELET COUNT 244 TH/MM3 (150-450); RED BLOOD COUNT 3.78 MIL/MM3 (4.00-5.30); RED CELL DISTRIBUTION WIDTH 13.8 % (11.6-17.2); WHITE BLOOD COUNT 5.4 TH/MM3 (4.0-11.0)
[2016-07-08 04:23] LABS: ANION GAP 5 MEQ/L (5-15); AST (GOT) 10 U/L (15-37); BICARBONATE 28.7 MEQ/L (21.0-32.0); BLOOD UREA NITROGEN 7 MG/DL (7-18); CHLORIDE 108 MEQ/L (98-107); GLOMERULAR FILTRATION RATE 85 ML/MIN (>89); POTASSIUM 4.6 MEQ/L (3.5-5.1); SODIUM (NA) 142 MEQ/L (136-145)
[2016-07-08 04:27] LABS: ALKALINE PHOSPHATASE 63 U/L (45-117); ALT (GPT) 15 U/L (10-53); TOTAL BILIRUBIN ADULT 0.2 MG/DL (0.2-1.0)
[2016-07-08] MEDS: SODIUM CHLORIDE 23.4% INJ 154 MEQ in DEXTROSE 10% INJ 1,000 ML IV SCH ×3 (06:14→20:53)
[2016-07-08] MEDS ORDERED: DRONABINOL 5 MG CAP PO SCH (09:00)
[2016-07-08] MEDS: SODIUM CHLORIDE 0.9% FLUSH 5 ML FLUSH FLUSH SCH ×2 (09:00→20:47)
[2016-07-08] MEDS ORDERED: predniSONE 5 MG TAB PO SCH ×2 (09:00→12:00)
[2016-07-08] MEDS ORDERED: PROCHLORPERAZINE INJ 10 MG/2 ML VIAL IM PRN (09:15)
[2016-07-08] MEDS: ONDANSETRON HCL 4 MG/2 ML VIAL IVP PRN ×2 (09:29→21:19)
[2016-07-08] MEDS: ALPRAZolam 1 MG TAB PO PRN (09:29)
[2016-07-08] MEDS: DULoxetine HCl DR 60 MG CAP PO SCH (10:26)
[2016-07-08] MEDS: LACTOBACILLUS ACIDOPHILUS TAB PO SCH ×2 (10:26→20:48)
--- NOTE | 2016-07-08 12:54 | HHI.HP ---
[facility] Service Family Medicine Primary Care Physician Non-Staff Admission Diagnosis hypoglycemia Diagnoses: (1) Hypoglycemia Diagnosis: Principal (2) Diarrhea Diagnosis: Principal (3) Chronic abdominal pain Diagnosis: Principal (4) Intractable vomiting Diagnosis: Principal (5) Nutrition, metabolism, and development symptoms Diagnosis: Principal International Travel<30 Days: No Contact w/Intl Traveler<30days: No Known Affected Area: No History of Present Illness Ms Ravi is a 45yo female with PMH significant for recurrent hypoglycemia, PUD, anemia and recurrent pancreatitis. She presented due to symptoms of hypoglycemia, abdominal pain, nausea/vomiting. Of note, patient has an extensive history of recurrent hypoglycemia, abdominal pain and cyclical vomiting that has not resolved in over a year. She frequently follows up at [facility] and was hospitalized at [facility] for the same symptoms. Her most recent hospitalization was at [facility] on 06/30. She does not remember her diagnosis but remembers being told to be on low-dose prednisone but she did not want to take it due to weight gain. She reported to me that she was placed on Decadron in the hospital at [facility] and "it fixed her low sugars". She did not start immediately on steroids when she went home but stated she did have them filled at the Pharmacy and did take them at least some on Sat, , Sat and Sat. However, it is unclear if she took the prescribed doses as now she does not remember the exact medicine. She does report feeling better at [facility] with Decadron and being ready to go home on Saturday. She also reported having an Sql Architect at [facility] though she cannot remember the Drs name. The pt also describes multiple tests which could be a mixed meal test or other tests and did mention adrenal insufficiency though no records are available right now and they are being sent for. In regards to this presentation, nausea, vomiting, diarrhea, abdominal pain started 2 days prior to admission but has progressively worsened. She had been unable to keep any food down during this time and has had loss of appetite. Of note, patient was seen in clinic on 07/05 at which time she was already complaining of fecal incontinence that started about 5 weeks ago. She was seen by her pain doctor that placed her Dilaudid pump a few days ago and increased her Dilaudid dosage to 0.1239 mg/day. On the day of admission, diarrhea was 3- 4 episodes. Described as foul smelling without blood. Starts out with solid pieces but then progresses to liquid. She did start back on her chronic Flagyl 3 days ago. Denies any fevers but does endorse subjective hot flashes and chills. In relation to her abdominal pain, it is located in the epigastric and RUQ. Described as abdominal pressure, throbbing and sharp pain that has also progressively worsened. She did start back on her low-dose prednisone of unknown mg the day before admission. She is due for colonoscopy this coming up. An MRI is ordered as an outpt but she complains about fecal incontinence and has a history of severe narrowing on her L spine so ordered a non contrast MRI here. Ms Ravi is not the clearest historian and told Dr Ernst that she was not taking her home dose of steroids but told me she took them though she could not say what the medicine was or exactly how often she took this med. If she is adrenally insufficient and missed doses of her medicine she would get many of the sxs she has now including abdominal pain (though she has that chronically) plus low glucoses, also potentially low K and nausea, vomiting and weight loss. She denies specific orthostatic sxs of hypotension but does say that her BPs are chronically low. Her cortisone level is very low. This would verify a diagnosis of adrenal insufficiency but if she was taking hydrocortisone or even prednisone at home that can effect her testing. Getting her records from [facility] would be of the most benefit as her glucoses are so low into the 20s that she cannot be without adequate treatment at this time including decadron iv now. I gave her a handout on adrenal insufficiency as if she does have this problem she needs to understand how important it is to take take her meds properly. She is responding to treatment and her glucoses are better and she has less nausea, vomiting and pain at this time. Review of Systems ROS Limitations: Other (long complex history) Constitutional: COMPLAINS OF: Weight gain, Weight loss, Change in appetite Respiratory: DENIES: Shortness of breath Cardiovascular: DENIES: Chest pain, Dyspnea on Exertion Gastrointestinal: COMPLAINS OF: Abdominal pain, Diarrhea, Nausea, Vomiting, Anorexia, DENIES: Difficulty Swallowing Genitourinary: DENIES: Abnormal vaginal bleeding, Dysmenorrhea, Hematuria Musculoskeletal: COMPLAINS OF: Joint Swelling, Back pain, Neck pain Integumentary: COMPLAINS OF: Abnormal pigmentation (back is hyperpigmented) Neurologic: COMPLAINS OF: Paresthesias, DENIES: Abnormal gait, Localized weakness, Speech Problems Psychiatric: COMPLAINS OF: Anxiety, DENIES: Depression, Hallucinations Other Constitutional: COMPLAINS OF: Weight loss, Chills, Change in appetite, DENIES : Fever Ears, nose, mouth, throat: DENIES: Throat pain, Hoarseness, Running Nose Respiratory: DENIES: Cough, Sputum production, Shortness of breath Cardiovascular: DENIES: Chest pain, Palpitations, Lower Extremity Edema Gastrointestinal: COMPLAINS OF: Abdominal pain, Diarrhea, Nausea, Vomiting, DENIES: Black stools, Bloody stools, Constipation Genitourinary: DENIES: Hematuria, Dysuria Musculoskeletal: COMPLAINS OF: Back pain Integumentary: DENIES: Rash Past Family Social History Past Medical History Migraine headaches Anxiety Chronic Low Back Pain PUD Complications after gastric surgery - hospitalized for several months with abscesses May-Jul 2013, Recurrent pancreatitis since gastric surgery- followed by GI at [facility] Upper Extremity DVT x2 (2014 and 2015) due to lines Anemia possible adrenal insufficiency Past Surgical History Cholecystectomy x 2 Tubal Ligation Back surgery (L4/L5 discectomy) Gastric sleeve surgery February 2014 Abscess drainage and drain placement as well as J-tube placement June 2014. Hysterectomy Bladder sling Dilaudid pump in back Allergies: Coded Allergies: Cipro (Verified Allergy, Severe, Hives, ABD PAIN, 07/07/16) Doxycycline (Verified Allergy, Severe, SWELLING, HIVES, 07/07/16) Nonsteroidal Anti-Inflammatory Agts (Verified Allergy, Severe, 07/07/16) DUE TO A SURGICAL PROCEDURE IN THE PAST Cleocin (Verified Allergy, Intermediate, HIVES, 07/07/16) Contrast Media (Verified Allergy, Intermediate, Hives, 07/07/16) Vancomycin (Verified Allergy, Intermediate, HIVES, 07/07/16) Biaxin (Verified Adverse Reaction, Intermediate, NAUSEA, 07/07/16) Motrin (Verified Adverse Reaction, Intermediate, ULCERS, ABD PAIN, 07/07/16) PT HAS ULCERS, DOES NOT WISH TO TAKE. Toradol (Verified Adverse Reaction, Intermediate, 07/07/16) ABDOMINAL PAIN Bactrim (Verified Adverse Reaction, Mild, abdominal pain, 07/07/16) Has had since without difficulty (reaction was years ago) Family History Mother - Healthy. Maternal Aunt- Breast Ca, one with stomach Ca (and two others with unknown cancers). Father - skin cancer. Breast cancer in paternal aunt. Cousin with melanoma. Grandmother with unknown blood disorder Social History Denies tobacco, alcohol and illicit drug use. Physical Exam Vital Signs Vital Signs Date Time Temp Pulse Resp B/P Pulse Ox O2 Delivery O2 Flow Rate FiO2 07/08/16 11:15 98.7 75 18 130/81 98 116/70 07/08/16 10:29 18 07/08/16 09:45 98.3 94 18 134/77 99 07/08/16 09:08 96 21 07/08/16 07:31 85 16 125/79 97 07/08/16 06:47 78 12 121/60 95 Room Air 07/07/16 23:07 86 16 106/52 97 Room Air 07/07/16 21:07 96 07/07/16 19:08 87 15 123/65 96 Room Air 07/07/16 19:07 15 07/07/16 18:39 80 20 114/58 97 Room Air 07/07/16 17:05 100 Room Air 07/07/16 16:07 97.7 77 17 149/70 95 Physical Exam GENERAL: This is a well-nourished, well-developed patient, in no apparent distress except complaining of some abdominal pain. Obese female SKIN: No rashes, ecchymoses or lesions. Cool and dry. does have hyperpigmented skin on her low back where she has placed heating pads EYES: Pupils equal round and reactive. Extraocular motions intact. No scleral icterus. No injection or drainage. ENT: Nose without bleeding, purulent drainage. Airway patent. NECK: No lymphadenopathy. CARDIOVASCULAR: Regular rate and rhythm without murmurs, gallops, or rubs. RESPIRATORY: Clear to auscultation. Breath sounds equal bilaterally. No wheezes , rales, or rhonchi. GASTROINTESTINAL: Abdomen soft, nondistended. Tenderness to palpation or epigastric and RUQ. No rebound or guarding. MUSCULOSKELETAL: Extremities without clubbing, cyanosis, or edema. No calf tenderness. NEUROLOGICAL: Awake and alert. Motor and sensory grossly within normal limits. Normal speech. ambulating without problems Laboratory Laboratory Tests Test 07/07/16 07/07/16 07/07/16 07/08/16 17:00 18:00 23:38 03:45 White Blood Count 6.0 5.4 Red Blood Count 3.71 3.78 Hemoglobin 10.1 10.1 Hematocrit 29.6 30.5 Mean Corpuscular Volume 79.9 80.7 Mean Corpuscular Hemoglobin 27.3 26.6 Mean Corpuscular Hemoglobin 34.2 33.0 Concent Red Cell Distribution Width 13.9 13.8 Platelet Count 241 244 Mean Platelet Volume 7.6 7.5 Neutrophils (%) (Auto) 76.0 88.5 Lymphocytes (%) (Auto) 12.9 8.7 Monocytes (%) (Auto) 9.6 1.8 Eosinophils (%) (Auto) 1.4 0.7 Basophils (%) (Auto) 0.1 0.3 Neutrophils # (Auto) 4.5 4.8 Lymphocytes # (Auto) 0.8 0.5 Monocytes # (Auto) 0.6 0.1 Eosinophils # (Auto) 0.1 0.0 Basophils # (Auto) 0.0 0.0 CBC Comment DIFF FINAL DIFF FINAL Differential Comment Sodium Level 140 142 Potassium Level 4.0 4.6 Chloride Level 105 108 Carbon Dioxide Level 27.5 28.7 Anion Gap 8 5 Blood Urea Nitrogen 9 7 Creatinine 0.61 0.74 Estimat Glomerular Filtration 106 85 Rate Random Glucose 28 96 Calcium Level 8.0 8.1 Total Bilirubin 0.2 0.2 Aspartate Amino Transf 10 10 (AST/SGOT) Alanine Aminotransferase 14 15 (ALT/SGPT) Alkaline Phosphatase 63 63 Total Protein 6.1 6.0 Albumin 2.9 2.9 Amylase Level 35 Lipase 179 106 B-Hydroxybutyrate 0.10 Urine Color COLORLESS Urine Turbidity CLEAR Urine pH 7.5 Urine Specific [place] 1.004 Urine Protein NEG Urine Glucose (UA) NEG Urine Ketones NEG Urine Occult Blood NEG Urine Nitrite NEG Urine Bilirubin NEG Urine Urobilinogen LESS THAN 2.0 Urine Leukocyte Esterase NEG Urine WBC LESS THAN 1 Urine Squamous Epithelial <1 Cells Urine Bacteria Microscopic Urinalysis Comment CULT NOT INDICATED Random Cortisol 1.6 1.4 Result Diagram: 07/08/1634407/08/16344 Assessment and Plan Assessment and Plan 45yo female with PMH significant for recurrent hypoglycemia, PUD, anemia and recurrent pancreatitis. Admitted for persistent hypoglycemia. Additionally, her strong family history of cancer can be explored as she could have a familial condition contributing to her problems. Problem List: (1) Hypoglycemia Status: Acute Plan: History of recurrent episodes of hypoglycemia that has required multiple trips to the ED and hospitalizations. Has been going on for many months. Etiology unclear. Has continued to have hypoglycemic episodes in the ED despite D50 and eating. There may possibly be a component of adrenal insufficiency but this is unclear so sent for records from [facility] [place] where she has been hospitalized many times. Will evaluate for other etiologies -Bedside glucose checks q1hr x3 consecutive glucose >90, then can continue checks q2hrs -Electrolytes otherwise unremarkable including liver enzymes, lipase. -UA unremarkable -Amylase, cortisol, proinsulin, beta hydroxybutryate, C peptide, insulin levels ordered -Records from [facility] requested Imaging: * CT abdomen/pelvis 06/23/16: No acute findings. No mention of masses * Abdomen MRI ordered to evaluate for masses, will hold on this right now as pt has anxiety so will first try MRI of back as she may have had studies at [facility] and had a recent CT abdomen. Medications: * D10W at 100mls/hr. Once she is stable, this can be stopped * Decadron 4 mg BID. This med will not interfere with a cortisol level and has some mineralocorticoid effect * Reglan and Zofran for nausea * Continued home dronabinol for nausea (2) Diarrhea Status: Acute Plan: Reports worsening symptoms of diarrhea without blood. HX of gastric bypass surgery. Described as foul order. Was recently seen by GI and has a colonoscopy planned for later this week. Patient also reported at her recent clinic visit that she's been having fecal incontinence since the placement of her Dilaudid pump 5wks ago. GI suspected symptoms were due to bacterial overgrowth. Outpatient MRI had been ordered but not yet obtained. Less likely to be due to infectious etiology. -C. difficile due to chronic use of metronidazole -MRI of lumbar spine ordered while inpatient. -hold home Naloxegol (3) Chronic abdominal pain Status: Chronic Plan: Patient continues to have chronic abdominal pain but reports that this is slightly different than prior episodes. Lipase unremarkable. -Will hold on repeat CT as patient recently had one on 06/23/16. Additionally lipase and liver enzymes are unremarkable unsure if abdominal pain can be due to adrenal insufficiency as this is different from her norm (4) Intractable vomiting Status: Acute Plan: see plan under hypoglycemia (5) Nutrition, metabolism, and development symptoms Status: Acute Plan: Diet: Regular Fluids: See above Electrolytes: hypoglycemia but otherwise unremarkable. GI PPX: protonix DVT PPX: Lovenox Chronic conditions: * Anxiety/Depression: Duloxetine 60mg daily, Xanax * Insomnia: Trazodone 300mg daily (6) Paresthesia and pain of both upper extremities Status: Acute (7) Chronic low back pain Status: Chronic Plan: With history of moderate to severe spinal stenosis on MRI 2013 and new sxs of fecal incontinence, will order MRI of L spine. She has some anxiety and states her usual Xanax does not work effectively for a closed MRI so will try 2 mg iv ativan. If unable to complete, she will have an open MRI scheduled for Saturday as outpt. She will not have contrast. A test was ordered in the ED. She reports being in menopause so the likelihood is low as well as having a hysterectomy which effectively rules out . (8) Hypokalemia Status: Chronic Plan: pt states she get chronic hypokalemia which can also be adrenal insufficiency. Problem Qualifiers (1) Diarrhea: Qualified Code: R19.7 - Diarrhea, unspecified type (2) Intractable vomiting: Qualified Code: G43.A1 - Intractable cyclical vomiting with nausea (3) Chronic low back pain: Qualified Code: M54.40 - Chronic low back pain with sciatica, sciatica laterality unspecified, unspecified back pain laterality Gris Powell MD Jul 08, 2016 12:54
[2016-07-08] MEDS ORDERED: LORazepam 2 MG/ML VIAL IV PUSH ONE (13:00)
[2016-07-08] MEDS: PROMETHAZINE INJ 25 MG/ML VIAL IM/IV PRN (13:28)
[2016-07-08] MEDS: DEXAMETHASONE SOD PHOS 4 MG/ML VIAL IV PUSH SCH (17:00)
--- NOTE | 2016-07-08 18:45 | RADRPT ---
EXAM DATE/TIME: 07/08/2016 17:42 [place] COMPARISON: No previous studies available for comparison. INDICATIONS : Pain. MEDICAL HISTORY : None. SURGICAL HISTORY : Cholecystectomy. Hysterectomy. Dilaudid pain pump, gastric sleeve, bladder sling, power port ENCOUNTER: Initial ACUITY: 3 day PAIN SCORE: 8/10 LOCATION: Bilateral lower back. TECHNIQUE: Multiplanar multisequence MRI of the lumbar spine was performed without contrast. FINDINGS: The most caudal appearing lumbar vertebra is numbered as L5. VERTEBRAE: Homogeneous signal. Normal alignment. CONUS: Normal level and configuration. T12-L1: The thecal sac has a normal diameter. No evidence of disc bulge or protrusion. The neural foramina are patent bilaterally. L1-L2: The thecal sac has a normal diameter. No evidence of disc bulge or protrusion. The neural foramina are patent bilaterally. L2-L3: The thecal sac has a normal diameter. No evidence of disc bulge or protrusion. The neural foramina are patent bilaterally. L3-L4: Broad-based disc bulge without significant stenosis. L4-L5: The thecal sac has a normal diameter. No evidence of disc bulge or protrusion. The neural foramina are patent bilaterally. L5-S1: Posterior disc osteophyte complex, worse on the right side with mild right-sided neural foraminal kaitlyn nosis. CONCLUSION: 1. No significant central canal stenosis. Mild right-sided neural foraminal stenosis at L5-S1. Broad- based disc bulge at L3-4 without significant stenosis. No fracture or spondylolisthesis. Conus intact . Compa Gallardo MD on July 08, 2016 at 18:40 Board Certified Radiologist. This report was verified electronically.
[2016-07-08] MEDS: ENOXAPARIN SODIUM 40 MG/0.4 ML SYRINGE SQ SCH (20:48)
[2016-07-08] MEDS: PANTOPRAZOLE SODIUM 40 MG VIAL IV PUSH SCH (20:49)
[2016-07-08] MEDS ORDERED: predniSONE 20 MG TAB PO SCH (21:00)
[2016-07-08] MEDS ORDERED: traZODone HCL 100 MG TAB PO SCH (21:00)
[2016-07-09] VITALS (7 sets, daily range): BP systolic 121–149; BP diastolic 65–89; PULSE 59–98; RESP 18–20; TEMP 97.9–98.4; O2SAT 94–98
[2016-07-09] MEDS: HYDROmorphone HCL PF 1 MG/ML VIAL IV PRN ×7 (00:31→23:53)
[2016-07-09] MEDS: PROMETHAZINE INJ 25 MG/ML VIAL IM/IV PRN (00:32)
[2016-07-09] MEDS: DRONABINOL 5 MG CAP PO PRN (08:14)
--- NOTE | 2016-07-09 08:25 | HHI.FPPN ---
Subjective Remarks Patient seen and examined with Dr. Powell. No acute events overnight. VSSAF. Patient still reports nausea, vomiting, and diarrhea last night. Endorses persistent pain in her lower abdomen. Pain is somewhat controlled with current regimen. (Yuni Guidry MD R3) Objective Vitals Vital Signs Date Time Temp Pulse Resp B/P Pulse Ox O2 Delivery O2 Flow Rate FiO2 07/09/16 04:00 98.4 59 18 124/77 98 07/09/16 00:00 98.4 83 18 121/65 96 07/08/16 20:00 98.3 84 18 142/69 96 07/08/16 17:45 98 21 07/08/16 15:45 18 07/08/16 11:15 98.7 75 18 130/81 98 116/70 07/08/16 09:45 98.3 94 18 134/77 99 07/08/16 09:08 96 21 I/O 07/08/16 07/08/16 07/08/16 07/09/16 07/09/16 07/09/16 07:00 15:00 23:00 07:00 15:00 23:00 Intake Total 480 ml Balance 480 ml Intake Oral 480 ml # Voids 1 2 (Yuni Guidry MD R3) Result Diagram: 07/08/16 0345 07/08/16 0345 Imaging Lumbar Spine MRI 07/08/16 0000 Signed Impressions: Service Date/Time: Friday, July 08, 2016 17:42 - CONCLUSION: 1. No significant central canal stenosis. Mild right-sided neural foraminal stenosis at L5-S1. Broad-based disc bulge at L3-4 without significant stenosis. No fracture or spondylolisthesis. Conus intact. Compa Gallardo MD Objective Remarks GENERAL: This is a well-nourished, well-developed obese female in no apparent distress. SKIN: No rashes, ecchymoses or lesions. Cool and dry. Multiple well-healed abdominal scars. EYES: Extraocular motions intact. No scleral icterus. No injection or drainage. ENT: Nose without bleeding, purulent drainage. Throat without erythema, tonsillar hypertrophy or exudate. Uvula midline. Airway patent. NECK: No lymphadenopathy. CARDIOVASCULAR: Regular rate and rhythm without murmurs, gallops, or rubs. RESPIRATORY: Clear to auscultation. Breath sounds equal bilaterally. No wheezes , rales, or rhonchi. GASTROINTESTINAL: Abdomen soft, nondistended. Tenderness to palpation or epigastric and RUQ. No rebound or guarding. Lots of redundant skin MUSCULOSKELETAL: Extremities without clubbing, cyanosis, or edema. No calf tenderness. NEUROLOGICAL: A little drowsy but awake and answers questions appropriately. Motor and sensory grossly within normal limits. Normal speech. (Yuni Guidry MD R3) A/P Assessment and Plan 45yo female with PMH significant for recurrent hypoglycemia, PUD, anemia and recurrent pancreatitis. Admitted for persistent hypoglycemia of unknown etiology. Awaiting records from [facility] from recent hospitalization. Patient reports possible history of AI, workup pending. Additionally, her strong family history of cancer can be explored as she could have a familial condition contributing to her problems. s/d/w Dr. Powell Discharge Planning Anticipate discharge home in 1-2 days if BG continues to remain stable. (Yuni Guidry MD R3) Attending Attestation Patient seen and examined. Case reviewed and discussed with the resident team. Agree with plan of care as discussed with me and documented in the resident note. (Gris Powell MD) Problem List: (1) Hypoglycemia Status: Resolved Plan: History of recurrent episodes of hypoglycemia that has required multiple trips to the ED and hospitalizations. Has been going on for many months. Etiology unclear. Has continued to have hypoglycemic episodes in the ED despite D50 and eating. There may possibly be a component of adrenal insufficiency but this is unclear so sent for records from [place] where she has been hospitalized many times. Blood glucose stable on D10NS and Decadron 4mg IV. -Continue Accu-checks -Will stop IVF once patient can tolerate more po -Cortisol 2/4 and 2/5 low, however unsure if patient has been on Prednisone at home since this would suppress. Since she has not gotten any Prednisone since admission, will repeat Cortisol level tomorrow morning. Continue Decadron IV. -Insulin and C peptide pending -Records from [facility] requested -Consult forensic computer examiner Imaging: * CT abdomen/pelvis 06/23/16: No acute findings. No mention of masses * Abdomen MRI ordered to evaluate for masses, will hold on this right now as pt has anxiety so will first try MRI of back as she may have had studies at [facility] and had a recent CT abdomen. (2) Diarrhea Status: Chronic Plan: Patient still reports having diarrhea and fecal incontinence. Has been on metronidazole for a while. -C. difficile PCR pending -MRI of lumbar spine: no significant stenosis -She is scheduled for colonoscopy on -hold home Naloxegol (3) Chronic abdominal pain Status: Chronic Plan: Patient continues to have chronic abdominal pain but reports that this is slightly different than prior episodes. Patient does have history of pancreatitis however Amylase and lipase unremarkable. -Will hold on repeat CT as patient recently had one on 06/23/16. Additionally lipase and liver enzymes are unremarkable unsure if abdominal pain can be due to adrenal insufficiency as this is different from her norm -Continue pain regimen (4) Intractable vomiting Status: Chronic Plan: Etiology unclear -Zofran, Phenergan, and Compazine prn -Decadron per above (5) Chronic low back pain Status: Chronic Plan: History of moderate to severe spinal stenosis on MRI 2013 and new sxs of fecal incontinence. MRI L-spine 07/08/16 with no significant central canal stenosis. Mild right-sided neural foraminal stenosis at L5-S1. Broad based disc bulge at L3-4 without significant stenosis. -Patient has Dilaudid pump per her pain management physician (6) Nutrition, metabolism, and development symptoms Status: Acute Plan: Diet: Regular Fluids: See above Electrolytes: WNL GI PPX: protonix DVT PPX: Lovenox Chronic conditions: * Anxiety/Depression: Duloxetine 60mg daily, Xanax * Insomnia: Trazodone 300mg daily (Yuni Guidry MD R3) Problem Qualifiers (1) Diarrhea: Qualified Code: R19.7 - Diarrhea, unspecified type (2) Intractable vomiting: Qualified Code: G43.A1 - Intractable cyclical vomiting with nausea (3) Chronic low back pain: Qualified Code: M54.40 - Chronic low back pain with sciatica, sciatica laterality unspecified, unspecified back pain laterality Yuni Guidry MD R3 Jul 09, 2016 08:25 Gris Powell MD Jul 13, 2016 13:43
[2016-07-09] MEDS: SODIUM CHLORIDE 0.9% FLUSH 5 ML FLUSH FLUSH SCH ×2 (09:00→20:00)
[2016-07-09] MEDS: ONDANSETRON HCL 4 MG/2 ML VIAL IVP PRN ×3 (09:23→20:00)
[2016-07-09] MEDS: DEXAMETHASONE SOD PHOS 4 MG/ML VIAL IV PUSH SCH ×2 (09:24→20:00)
[2016-07-09] MEDS: DULoxetine HCl DR 60 MG CAP PO SCH (09:24)
[2016-07-09] MEDS: LACTOBACILLUS ACIDOPHILUS TAB PO SCH ×2 (09:24→20:00)
[2016-07-09 12:38] LABS: BICARBONATE 33.5 MEQ/L (21.0-32.0); POTASSIUM 4.3 MEQ/L (3.5-5.1)
[2016-07-09] MEDS: ENOXAPARIN SODIUM 40 MG/0.4 ML SYRINGE SQ SCH (19:59)
[2016-07-09] MEDS: PANTOPRAZOLE SODIUM 40 MG VIAL IV PUSH SCH (22:23)
[2016-07-09] MEDS: ALPRAZolam 1 MG TAB PO PRN (23:53)
[2016-07-10] VITALS (9 sets, daily range): BP systolic 128–153; BP diastolic 68–95; PULSE 74–92; RESP 16–18; TEMP 97.5–98.7; O2SAT 95–99
[2016-07-10] MEDS: traZODone HCL 100 MG TAB PO PRN ×2 (00:14→22:00)
[2016-07-10] MEDS: SODIUM CHLORIDE 23.4% INJ 154 MEQ in DEXTROSE 10% INJ 1,000 ML IV SCH ×3 (01:03→22:01)
[2016-07-10] MEDS: HYDROmorphone HCL PF 1 MG/ML VIAL IV PRN ×6 (03:09→22:00)
[2016-07-10] MEDS: ONDANSETRON HCL 4 MG/2 ML VIAL IVP PRN ×3 (03:10→22:00)
[2016-07-10 06:39] LABS: BICARBONATE 30.4 MEQ/L (21.0-32.0); POTASSIUM 3.7 MEQ/L (3.5-5.1)
[2016-07-10] MEDS: PROMETHAZINE INJ 25 MG/ML VIAL IM/IV PRN ×2 (07:27→14:43)
[2016-07-10] MEDS: DULoxetine HCl DR 60 MG CAP PO SCH (08:38)
[2016-07-10] MEDS: DEXAMETHASONE SOD PHOS 4 MG/ML VIAL IV PUSH SCH (08:38)
[2016-07-10] MEDS: DRONABINOL 5 MG CAP PO PRN (08:39)
[2016-07-10] MEDS: LACTOBACILLUS ACIDOPHILUS TAB PO SCH ×2 (08:39→20:44)
[2016-07-10] MEDS: SODIUM CHLORIDE 0.9% FLUSH 5 ML FLUSH FLUSH SCH ×2 (08:39→20:44)
--- NOTE | 2016-07-10 09:06 | HHI.FPPN ---
Subjective Remarks Patient seen and examined. No acute events overnight. She continues to complain of nausea, vomiting, diarrhea, and bowel incontinence. States that she has not been able to eat much because of the symptoms but later tells me that she was able to eat some fish and potatoes last night. Reports that she has been checking her BG in addition to accuchecks from the staff. Her BG yesterday afternoon was 198 but after she got up and moved around, it dropped to 110. Lowest documented glucose was 103 yesterday afternoon. In addition, states that her back is very pain and does not think that her pain pump is working. Would like to have the pain pump interrogated while she's here if possible. (Yuni Guidry MD R3) Objective Vitals Vital Signs Date Time Temp Pulse Resp B/P Pulse Ox O2 Delivery O2 Flow Rate FiO2 07/10/16 07:42 99 21 07/10/16 07:10 98.1 74 18 128/69 97 07/10/16 04:00 98.5 82 18 138/90 97 07/10/16 00:00 98.7 92 18 143/95 99 07/09/16 22:05 21 07/09/16 20:00 98.4 84 18 142/77 98 07/09/16 15:43 98.4 77 131/71 96 07/09/16 13:30 94 21 07/09/16 13:10 20 07/09/16 12:25 97.9 98 20 149/89 I/O 07/09/16 07/09/16 07/09/16 07/10/16 07/10/16 07/10/16 07:00 15:00 23:00 07:00 15:00 23:00 Intake Total 480 ml 960 ml Output Total 5 ml Balance 480 ml 955 ml Intake Oral 480 ml 960 ml Output Urine Total 5 ml # Voids 2 # Bowel Movements 1 (Yuni Guidry MD R3) Result Diagram: 07/08/16 0345 07/10/16 0445 Imaging Last Impressions Lumbar Spine MRI 07/08/16 0000 Signed Impressions: Service Date/Time: Friday, July 08, 2016 17:42 - CONCLUSION: 1. No significant central canal stenosis. Mild right-sided neural foraminal stenosis at L5-S1. Broad-based disc bulge at L3-4 without significant stenosis. No fracture or spondylolisthesis. Conus intact. Compa Gallardo MD Objective Remarks GENERAL: This is a well-nourished, well-developed obese female in no apparent distress. SKIN: No rashes, ecchymoses or lesions. Cool and dry. Multiple well-healed abdominal scars. EYES: Extraocular motions intact. No scleral icterus. No injection or drainage. ENT: Nose without bleeding, purulent drainage. Throat without erythema, tonsillar hypertrophy or exudate. Uvula midline. Airway patent. NECK: No lymphadenopathy. CARDIOVASCULAR: Regular rate and rhythm without murmurs, gallops, or rubs. RESPIRATORY: Clear to auscultation. Breath sounds equal bilaterally. No wheezes , rales, or rhonchi. GASTROINTESTINAL: Abdomen soft, nondistended. Tenderness to palpation or epigastric and RUQ. No rebound or guarding. Lots of redundant skin MUSCULOSKELETAL: Extremities without clubbing, cyanosis, or edema. No calf tenderness. NEUROLOGICAL: A little drowsy but awake and answers questions appropriately. Motor and sensory grossly within normal limits. Normal speech. (Yuni Guidry MD R3) A/P Assessment and Plan 45yo female with PMH significant for recurrent hypoglycemia, PUD, anemia and recurrent pancreatitis. Admitted for persistent hypoglycemia of unknown etiology. Awaiting records from [facility] from recent hospitalization. Patient reports possible history of AI, workup pending. Blood glucoses have been stable on IV steroids. Plan to transition to po Hydrocortisone today. In addition, she is tentatively scheduled for colonoscopy with Dr. Parmar tomorrow given history of persistent n/v and diarrhea. d/w Dr. Powell Discharge Planning Anticipate discharge home in 1-2 days if BG continues to remain stable. (Yuni Guidry MD R3) Attending Attestation Patient seen and examined. Case reviewed and discussed with the resident team. Agree with plan of care as discussed with me and documented in the resident note. unsure if her pain pump could be effected by the MRI. pacemakers definitely are effected and it's possible her pump is not functioning as before (Gris Powell MD) Problem List: (1) Hypoglycemia Status: Resolved Plan: History of recurrent episodes of hypoglycemia that has required multiple trips to the ED and hospitalizations. Has been going on for many months. Etiology unclear. Has continued to have hypoglycemic episodes in the ED despite D50 and eating. There may possibly be a component of adrenal insufficiency but this is unclear so sent for records from [place] where she has been hospitalized many times. Cortisol level extremely low. -Blood glucose stable on Decadron 4mg IV. Will transition to Hydrocortisone 25mg PO BID. 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 No mention of masses * Abdomen MRI ordered to evaluate for masses, will hold on this right now as pt has anxiety so will first try MRI of back as she may have had studies at [place] and had a recent CT abdomen. (2) Diarrhea Status: Chronic Plan: Patient still reports having diarrhea and fecal incontinence. Has been on metronidazole for a while. -C. difficile PCR pending -Electrolytes WNL despite vomiting and diarrhea. -Discussed case with Dr. Calhoun (GI), she is scheduled for outpatient colonoscopy on , but since she is her and is at risk for hypoglycemia, Dr. Parmar will plan to do the colonoscopy tomorrow (07/11/16) while patient is here. -hold home Naloxegol Imaging: -MRI of lumbar spine: no significant stenosis (3) Chronic abdominal pain Status: Chronic Plan: Patient with history of multiple abdominal surgeries who continues to have chronic abdominal pain but unsure if abdominal pain can be due to adrenal insufficiency as this is different from her norm. Patient does have history of pancreatitis however amylase and lipase unremarkable. -Will hold on repeat CT as patient recently had one on 06/23/16. -Continue pain regimen. -GI consulted. Appreciate assistance (4) Intractable vomiting Status: Chronic Plan: Etiology unclear -Zofran, Phenergan, and Compazine prn -Steroids per above (5) Chronic low back pain Status: Chronic Plan: History of moderate to severe spinal stenosis on MRI 2013 and new sxs of fecal incontinence. MRI L-spine 07/08/16 with no significant central canal stenosis. Mild right-sided neural foraminal stenosis at L5-S1. Broad based disc bulge at L3-4 without significant stenosis. -Patient has Dilaudid pump per her pain management physician. However reports that she is having a lot more pain after her MRI and does not think that her pump is working. Will try to consult pain management for interrogation of pump (6) Nutrition, metabolism, and development symptoms Status: Acute Plan: Diet: Clear liquid diet. NPO after midnight Fluids: HLIV. Encourage oral fluid hydration Electrolytes: WNL GI PPX: protonix DVT PPX: Lovenox Chronic conditions: * Anxiety/Depression: Duloxetine 60mg daily, Xanax * Insomnia: Trazodone 300mg daily (Yuni Guidry MD R3) Problem Qualifiers (1) Diarrhea: Qualified Code: R19.7 - Diarrhea, unspecified type (2) Intractable vomiting: Qualified Code: G43.A1 - Intractable cyclical vomiting with nausea (3) Chronic low back pain: Qualified Code: M54.40 - Chronic low back pain with sciatica, sciatica laterality unspecified, unspecified back pain laterality Yuni Guidry MD R3 Jul 10, 2016 09:06 Gris Powell MD Jul 13, 2016 13:45
[2016-07-10] MEDS ORDERED: PILL SPLITTER OTHER PRN (11:00)
[2016-07-10] MEDS: HYDROCORTISONE 10 MG TAB PO SCH ×2 (12:48→22:00)
[2016-07-10] MEDS ORDERED: MISCELLANEOUS NURSING INFORMATION OTHER ONE (14:00)
--- NOTE | 2016-07-10 16:22 | MB ---
cc: KEN WEST DATE OF CONSULTATION: 07/10/2016 DATE OF : 1970 REASON FOR CONSULTATION: Diarrhea, constipation, abdominal pain. HISTORY OF PRESENT ILLNESS: Ms. Ravi is a 46 year-old lady who is known to our practice with a past medical history significant for morbid obesity status post gastric sleeve surgery, chronic pancreatitis, chronic pain issues, taking narcotics, who recently presented to our office complaining of alternating constipation and diarrhea with significant abdominal discomfort. She has had history of fecal impaction as well. She was on Linzess before without much improvement and was recently switched to Movantik for management of opiate induced constipation with some relief. She was also placed on a course of Flagyl for her diarrhea by Dr. Parmar a couple of weeks ago. he patient was scheduled to have an outpatient colonoscopy on July 12, 2016, however, she recently presented to the hospital on July 07 complaining of abdominal pain, nausea, vomiting and noted to have hypoglycemia. The patient has been admitted for management of hypoglycemia episodes. There is concern about possible adrenal insufficiency which has been worked up. GI is being consulted for chronic GI symptoms and possible inpatient colonoscopy. PAST MEDICAL HISTORY 1. Headaches. 2. History of peptic ulcer disease. 3. History of ERCP induced pancreatitis. 4. Chronic pancreatitis. 5. Hypoglycemia. 6. Upper extremity DVT. PAST SURGICAL HISTORY: 1. Cholecystectomy. 2. x2. 3. Tubal ligation. 4. Back surgery. 5. Gastric sleeve surgery, February 2014. 6. Hysterectomy. 7. Bladder sling. MEDICATIONS: 1. Hydrocortisone 5 mg p.o. b.i.d. 2. Naloxegol 12.5 milligrams p.o. daily 3. Tizanidine 4 milligrams p.o. t.i.d. 4. Marinol 5 milligrams p.o. b.i.d. 5. Percocet 10/325 one tablet t.i.d. p.r.n. 6. Zofran 4 milligrams p.o. q6 hours p.r.n. ALLERGIES: CIPRO DOXYCYCLINE CONTRAST MEDIA VANCOMYCIN BIAXIN MOTRIN TORADOL BACTRIM FAMILY HISTORY Breast cancer and stomach cancer in maternal aunt. Father had skin cancer, breast cancer, in paternal aunt, cousin with melanoma. Grandmother with unknown blood disorder. SOCIAL HISTORY: Denies tobacco, alcohol or illicit drug use. REVIEW OF SYSTEMS: Positive for nausea, vomiting, weakness, constipation, diarrhea, abdominal pain, otherwise 14 point review of systems is negative. PHYSICAL EXAMINATION: VITAL SIGNS: Temperature is 98.4, heart rate of 80, respiratory rate of 16, blood pressure 128/68. General: She is an obese lady in no acute distress lying comfortably in bed. HEENT: Normocephalic, atraumatic. Pupils equal, round, reactive to light and accommodation. Anicteric sclera. Moist mucosa, no lesions. Neck: Supple. No JVD. No lymphadenopathy. Pulmonary: Clear to auscultate to auscultation bilaterally. No wheezing or rhonchi. Abdomen is obese, soft, mildly tender to palpation in all four quadrants. Extremities: No cyanosis or edema. Neuro: She is alert, oriented x3, cranial nerves intact. No focal deficits. LABORATORY DATA White blood cell count is 5.4, hemoglobin of 10.1, platelet count of 244. Sodium 142, potassium 3.7, chloride 107, BUN 13, creatinine 0.6, glucose level of 106, AST 10, ALT 15, alk phos 63, albumin 2.9, total bilirubin 0.2. IMAGING STUDIES She had a lumbar spine MRI which showed no significant central canal stenosis, right-sided neural foraminal stenosis at L5-S1, broad based disc bulge at L3-L4 without significant stenosis. ASSESSMENT/PLAN Ms. Ravi is a 46-year old lady with known history of obesity status post gastric sleeve surgery, chronic pancreatitis, chronic pain syndrome taking narcotics with opiate induced constipation, with alternating episode of diarrhea and constipation presented to the hospital with episode of hypoglycemia and worsening nausea and vomiting. PLAN Abdominal pain / constipation / diarrhea. Patient with known history of opiate induced constipation and previous history of fecal impaction. She is on Movantik which has helped her but now having some loose stools. She was recently started on a dose of Flagyl for possible small intestine bacterial overgrowth. We will plan to proceed and complete colonoscopy as it was planned to be done as an outpatient. She will need a two day bowel preparation. We will start today with magnesium citrate this evening and start a clear liquid diet at dinnertime. Tomorrow she will complete the bowel prep with Moviprep that she brought from home on split dosing regimen. We will plan for colonoscopy which will be performed by Dr. Parmar on July 12, 2016. The patient can take antiemetics as prescribed to help with bowel preparation. All other medical problems to be addressed with primary team. Thank domenica FULLER for this consultation and allowing us to participate in the care of Ms. Ravi. We will follow along with you. MD CHANA Casas/LIDIA /1:59 PM /3:06 PM
[2016-07-10] MEDS ORDERED: MAGNESIUM CITRATE SOLN 300 ML BTL PO ONE (17:00)
[2016-07-10] MEDS: ALPRAZolam 1 MG TAB PO PRN (18:27)
[2016-07-10] MEDS: ENOXAPARIN SODIUM 40 MG/0.4 ML SYRINGE SQ SCH (20:44)
[2016-07-10] MEDS: PANTOPRAZOLE SODIUM 40 MG VIAL IV PUSH SCH (21:59)
[2016-07-11] VITALS: BP 114/68; PULSE 67; TEMP 97.4; O2SAT 96
[2016-07-11] MEDS: HYDROmorphone HCL PF 1 MG/ML VIAL IV PRN ×7 (03:08→23:19)
[2016-07-11] MEDS: ONDANSETRON HCL 4 MG/2 ML VIAL IVP PRN ×3 (03:09→23:19)
[2016-07-11] MEDS: SODIUM CHLORIDE 23.4% INJ 154 MEQ in DEXTROSE 10% INJ 1,000 ML IV SCH ×2 (03:34→12:14)
[2016-07-11 04:00] VITALS: BP 124/67; PULSE 74; O2SAT 97
--- NOTE | 2016-07-11 07:38 | HHI.FPPN ---
Subjective Remarks Patient seen and examined. No acute events overnight. Vital signs stable afebrile. Of note patient is scheduled for colonoscopy tomorrow. She is drinking the prep but states that she has not had a BM yet. Continues to complain of lower abdominal pain. (Yuni Guidry MD R3) Objective Vitals Vital Signs Date Time Temp Pulse Resp B/P Pulse Ox O2 Delivery O2 Flow Rate FiO2 07/11/16 07:16 18 07/11/16 04:00 74 124/67 97 07/11/16 00:00 97.4 67 114/68 96 07/10/16 20:00 97.5 83 139/79 97 07/10/16 16:25 98.6 78 18 153/80 95 07/10/16 12:00 98.4 80 16 128/68 97 07/10/16 11:00 98.4 80 16 128/68 97 07/10/16 08:00 98.1 74 18 128/69 97 07/10/16 07:42 99 21 I/O 07/10/16 07/10/16 07/10/16 07/11/16 07/11/16 07/11/16 07:00 15:00 23:00 07:00 15:00 23:00 Intake Total 960 ml 960 ml 400 ml Output Total 5 ml Balance 955 ml 960 ml 400 ml Intake Oral 960 ml 960 ml 400 ml Output Urine Total 5 ml # Voids 6 4 # Bowel Movements 1 0 (Yuni Guidry MD R3) Result Diagram: 07/08/16 0345 07/10/16 0445 Imaging Last Impressions Lumbar Spine MRI 07/08/16 0000 Signed Impressions: Service Date/Time: Friday, July 08, 2016 17:42 - CONCLUSION: 1. No significant central canal stenosis. Mild right-sided neural foraminal stenosis at L5-S1. Broad-based disc bulge at L3-4 without significant stenosis. No fracture or spondylolisthesis. Conus intact. Compa Gallardo MD Objective Remarks GENERAL: This is a well-nourished, well-developed obese female in no apparent distress. SKIN: No rashes, ecchymoses or lesions. Cool and dry. Multiple well-healed abdominal scars. EYES: Extraocular motions intact. No scleral icterus. No injection or drainage. ENT: Nose without bleeding, purulent drainage. Throat without erythema, tonsillar hypertrophy or exudate. Uvula midline. Airway patent. NECK: No lymphadenopathy. CARDIOVASCULAR: Regular rate and rhythm without murmurs, gallops, or rubs. RESPIRATORY: Clear to auscultation. Breath sounds equal bilaterally. No wheezes , rales, or rhonchi. GASTROINTESTINAL: Abdomen soft, nondistended. Tenderness to palpation or epigastric and RUQ. No rebound or guarding. Lots of redundant skin MUSCULOSKELETAL: Extremities without clubbing, cyanosis, or edema. No calf tenderness. NEUROLOGICAL: A little drowsy but awake and answers questions appropriately. Motor and sensory grossly within normal limits. Normal speech. (Yuni Guidry MD R3) A/P Assessment and Plan 45yo female with PMH significant for recurrent hypoglycemia, PUD, anemia and recurrent pancreatitis. Admitted for persistent hypoglycemia of unknown etiology. Awaiting records from [facility] from recent hospitalization. Patient reports possible history of AI, workup pending. Blood glucoses have been stable on steroids. In addition, she is scheduled for colonoscopy with Dr. Parmar on given history of persistent n/v and diarrhea. d/w Dr. Powell Discharge Planning Anticipate discharge home tomorrow or next day pending GI clearance after colonoscopy. (Yuni Guidry MD R3) Attending Attestation Patient seen and examined. Case reviewed and discussed with the resident team. Agree with plan of care as discussed with me and documented in the resident note. with her hypoglycemia, she could have serious problems if fasting and doing her colon prep at home (Gris Powell MD) Problem List: (1) Hypoglycemia Status: Resolved Plan: History of recurrent episodes of hypoglycemia that has required multiple trips to the ED and hospitalizations. Has been going on for many months. Etiology unclear. Has continued to have hypoglycemic episodes in the ED despite D50 and eating. There may possibly be a component of adrenal insufficiency but this is unclear so sent for records from [place] where she has been hospitalized many times. Cortisol level extremely low. -Blood glucose stable on Hydrocortisone 25mg PO BID. -Continue Accu-checks -Insulin and C peptide pending -Records from [facility] requested. Will be faxing it to us this morning. 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 No mention of masses * Abdomen MRI ordered to evaluate for masses, will hold on this right now as pt has anxiety so will first try MRI of back as she may have had studies at [place] and had a recent CT abdomen. (2) Diarrhea Status: Chronic Plan: Patient still reports having diarrhea and fecal incontinence. Has been on metronidazole for a while. -C. difficile PCR pending -Electrolytes WNL despite vomiting and diarrhea. -GI consulted and patient scheduled for colonoscopy on . -hold home Naloxegol Imaging: -MRI of lumbar spine: no significant stenosis (3) Chronic abdominal pain Status: Chronic Plan: Patient with history of multiple abdominal surgeries who continues to have chronic abdominal pain but unsure if abdominal pain can be due to adrenal insufficiency as this is different from her norm. Patient does have history of pancreatitis however amylase and lipase unremarkable. -Will hold on repeat CT as patient recently had one on 06/23/16. -Continue pain regimen. -GI consulted. Appreciate assistance (4) Intractable vomiting Status: Chronic Plan: Etiology unclear -Zofran, Phenergan, and Compazine prn -Steroids per above (5) Chronic low back pain Status: Chronic Plan: History of moderate to severe spinal stenosis on MRI 2013 and new sxs of fecal incontinence. MRI L-spine 07/08/16 with no significant central canal stenosis. Mild right-sided neural foraminal stenosis at L5-S1. Broad based disc bulge at L3-4 without significant stenosis. -Patient has Dilaudid pump per her pain management physician. However reports that she is having a lot more pain after her MRI and does not think that her pump is working. Agent from [employer] has been consulted to interrogate pump (6) Nutrition, metabolism, and development symptoms Status: Acute Plan: Diet: Clear liquid diet. NPO after midnight Fluids: HLIV. Encourage oral fluid hydration Electrolytes: WNL GI PPX: protonix DVT PPX: Lovenox Chronic conditions: * Anxiety/Depression: Duloxetine 60mg daily, Xanax * Insomnia: Trazodone 300mg daily (Yuni Guidry MD R3) Problem Qualifiers (1) Diarrhea: Qualified Code: R19.7 - Diarrhea, unspecified type (2) Intractable vomiting: Qualified Code: G43.A1 - Intractable cyclical vomiting with nausea (3) Chronic low back pain: Qualified Code: M54.40 - Chronic low back pain with sciatica, sciatica laterality unspecified, unspecified back pain laterality Yuni Guidry MD R3 Jul 11, 2016 07:38 Gris Powell MD Jul 13, 2016 13:47
[2016-07-11 08:15] VITALS: BP 141/85; PULSE 71; RESP 18; TEMP 98; O2SAT 98
[2016-07-11] MEDS: LACTOBACILLUS ACIDOPHILUS TAB PO SCH ×2 (08:25→19:45)
[2016-07-11] MEDS: DULoxetine HCl DR 60 MG CAP PO SCH (08:26)
[2016-07-11] MEDS: ALPRAZolam 1 MG TAB PO PRN ×2 (08:26→19:50)
[2016-07-11] MEDS: SODIUM CHLORIDE 0.9% FLUSH 5 ML FLUSH FLUSH SCH ×2 (08:26→19:45)
[2016-07-11] MEDS: DRONABINOL 5 MG CAP PO PRN ×2 (08:32→19:50)
--- NOTE | 2016-07-11 10:46 | HHI.GIFU ---
Subjective Remarks Alert NAD prep for c scope started no BMs yet..Hueyly also ordered Objective Vitals I&O Vital Signs Date Time Temp Pulse Resp B/P Pulse Ox O2 Delivery O2 Flow Rate FiO2 07/11/16 10:14 18 07/11/16 08:15 98.0 71 18 141/85 98 07/11/16 04:00 74 124/67 97 07/11/16 00:00 97.4 67 114/68 96 07/10/16 20:00 97.5 83 139/79 97 07/10/16 16:25 98.6 78 18 153/80 95 07/10/16 12:00 98.4 80 16 128/68 97 07/10/16 11:00 98.4 80 16 128/68 97 I/O 07/10/16 07/10/16 07/10/16 07/11/16 07/11/16 07/11/16 07:00 15:00 23:00 07:00 15:00 23:00 Intake Total 960 ml 960 ml 400 ml Output Total 5 ml Balance 955 ml 960 ml 400 ml Intake Oral 960 ml 960 ml 400 ml Output Urine Total 5 ml # Voids 6 4 # Bowel Movements 1 0 Laboratory Laboratory Tests Test 07/07/16 07/07/16 07/08/16 07/10/16 17:00 18:00 03:45 04:45 Amylase Level 35 U/L B-Hydroxybutyrate 0.10 MMOL/L Urine Color COLORLESS Urine Turbidity CLEAR Urine pH 7.5 Urine Specific [place] 1.004 Urine Protein NEG mg/dL Urine Glucose (UA) NEG mg/dL Urine Ketones NEG mg/dL Urine Occult Blood NEG Urine Nitrite NEG Urine Bilirubin NEG Urine Urobilinogen LESS THAN 2.0 MG/DL Urine Leukocyte Esterase NEG Urine WBC LESS THAN 1 /hpf Urine Squamous Epithelial <1 /hpf Cells Urine Bacteria /hpf Microscopic Urinalysis Comment CULT NOT INDICATED White Blood Count 5.4 TH/MM3 Red Blood Count 3.78 MIL/MM3 Hemoglobin 10.1 GM/DL Hematocrit 30.5 % Mean Corpuscular Volume 80.7 FL Mean Corpuscular Hemoglobin 26.6 PG Mean Corpuscular Hemoglobin 33.0 % Concent Red Cell Distribution Width 13.8 % Platelet Count 244 TH/MM3 Mean Platelet Volume 7.5 FL Neutrophils (%) (Auto) 88.5 % Lymphocytes (%) (Auto) 8.7 % Monocytes (%) (Auto) 1.8 % Eosinophils (%) (Auto) 0.7 % Basophils (%) (Auto) 0.3 % Neutrophils # (Auto) 4.8 TH/MM3 Lymphocytes # (Auto) 0.5 TH/MM3 Monocytes # (Auto) 0.1 TH/MM3 Eosinophils # (Auto) 0.0 TH/MM3 Basophils # (Auto) 0.0 TH/MM3 CBC Comment DIFF FINAL Differential Comment Total Bilirubin 0.2 MG/DL Aspartate Amino Transf 10 U/L (AST/SGOT) Alanine Aminotransferase 15 U/L (ALT/SGPT) Alkaline Phosphatase 63 U/L Total Protein 6.0 GM/DL Albumin 2.9 GM/DL Lipase 106 U/L Insulin Level 46.8 uIU/mL Nasal Screen MRSA (PCR) NEGATIVE Sodium Level 143 MEQ/L Potassium Level 3.7 MEQ/L Chloride Level 107 MEQ/L Carbon Dioxide Level 30.4 MEQ/L Anion Gap 6 MEQ/L Blood Urea Nitrogen 13 MG/DL Creatinine 0.60 MG/DL Estimat Glomerular Filtration 108 ML/MIN Rate Random Glucose 106 MG/DL Calcium Level 7.6 MG/DL Random Cortisol 0.6 MCG/DL Imaging Last Impressions Lumbar Spine MRI 07/08/16 0000 Signed Impressions: Service Date/Time: Friday, July 08, 2016 17:42 - CONCLUSION: 1. No significant central canal stenosis. Mild right-sided neural foraminal stenosis at L5-S1. Broad-based disc bulge at L3-4 without significant stenosis. No fracture or spondylolisthesis. Conus intact. Compa Gallardo MD Physical Exam HEENT: Pupils round and reactive to light; normocephalic; atraumatic; no jaundice. Throat is clear. NECK: Neck is supple, no JVD, no lymphadenopathy. CHEST: Chest is clear to auscultation and percussion. CARDIAC: Regular rate and rhythm with no murmur gallop or rubs. ABDOMEN: Soft, nondistended, nontender; no hepatosplenomegaly; bowel sounds are present in all four quadrants. EXTREMITIES: No clubbing, cyanosis, or edema. SKIN: Normal; no rash; no jaundice. Assessment and Plan Assessment: (1) History of hypoglycemia (2) Anemia (3) Chronic abdominal pain (4) Diarrhea (5) Constipation Plan Colonoscopy planned for further evaluation Procedure risks beneftis explained . Problem Qualifiers (1) Diarrhea: Qualified Code: R19.7 - Diarrhea, unspecified type Triston Parmar MD Jul 11, 2016 10:46
[2016-07-11] MEDS: HYDROCORTISONE 10 MG TAB PO SCH ×2 (11:24→23:21)
[2016-07-11 11:41] VITALS: BP 130/73; PULSE 68; RESP 18; TEMP 97.6; O2SAT 96
[2016-07-11] MEDS: PROMETHAZINE INJ 25 MG/ML VIAL IM/IV PRN (13:07)
[2016-07-11 15:15] VITALS: BP 121/87; PULSE 81; RESP 18; TEMP 97.7; O2SAT 97
[2016-07-11] MEDS ORDERED: PEG (High)/E-LYTE SOLN 4000 ML BTL PO ONE (16:00)
[2016-07-11] MEDS: ENOXAPARIN SODIUM 40 MG/0.4 ML SYRINGE SQ SCH (21:00)
[2016-07-11] MEDS: PANTOPRAZOLE SODIUM 40 MG VIAL IV PUSH SCH (23:19)
[2016-07-11 23:23] VITALS: BP 131/75; PULSE 97; RESP 21; TEMP 98.6; O2SAT 97
[2016-07-12] MEDS: HYDROmorphone HCL PF 1 MG/ML VIAL IV PRN ×6 (04:05→20:57)
[2016-07-12 04:07] VITALS: BP 122/68; PULSE 72; RESP 21; TEMP 98.2; O2SAT 97
[2016-07-12] MEDS: SODIUM CHLORIDE 23.4% INJ 154 MEQ in DEXTROSE 10% INJ 1,000 ML IV SCH ×3 (05:34→22:54)
[2016-07-12] MEDS: DRONABINOL 5 MG CAP PO PRN ×2 (05:43→17:23)
[2016-07-12] MEDS: DULoxetine HCl DR 60 MG CAP PO SCH (07:31)
[2016-07-12] MEDS: ONDANSETRON HCL 4 MG/2 ML VIAL IVP PRN ×2 (07:31→14:22)
[2016-07-12] MEDS: SODIUM CHLORIDE 0.9% FLUSH 5 ML FLUSH FLUSH SCH ×2 (07:31→20:58)
[2016-07-12] MEDS: LACTOBACILLUS ACIDOPHILUS TAB PO SCH ×2 (07:31→20:58)
[2016-07-12 08:42] VITALS: BP 127/72; PULSE 68; RESP 16; TEMP 97; O2SAT 98
[2016-07-12] MEDS: ALPRAZolam 1 MG TAB PO PRN (09:09)
[2016-07-12 09:20] VITALS: BP 127/72; PULSE 68; RESP 16; TEMP 97; O2SAT 98
[2016-07-12] MEDS ORDERED: PROPOFOL 200 MG/20 ML AMP IV ONE ×2 (10:14)
[2016-07-12] MEDS ORDERED: LACTATED RINGER'S 1,000 ML BAG IV ONE (10:14)
--- NOTE | 2016-07-12 10:17 | HHI.FPPN ---
Subjective Remarks Patient seen and examined. No acute events overnight. VSSAF. She has multiple BMs with the prep yesterday. Is scheduled for colonoscopy around 11AM this morning. Continues to complain of back pain. (Yuni Guidry MD R3) Objective Vitals Vital Signs Date Time Temp Pulse Resp B/P Pulse Ox O2 Delivery O2 Flow Rate FiO2 07/12/16 09:20 97.0 68 16 127/72 98 07/12/16 08:42 97.0 68 16 127/72 98 07/12/16 08:00 18 07/12/16 04:07 98.2 72 21 122/68 97 07/11/16 23:23 98.6 97 21 131/75 97 07/11/16 15:15 97.7 81 18 121/87 97 07/11/16 11:41 97.6 68 18 130/73 96 I/O 07/11/16 07/11/16 07/11/16 07/12/16 07/12/16 07/12/16 07:00 15:00 23:00 07:00 15:00 23:00 Intake Total 400 ml 1860 ml 240 ml Balance 400 ml 1860 ml 240 ml Intake Oral 400 ml 1860 ml 240 ml # Voids 4 4 4 # Bowel Movements 3 10 (Yuni Guidry MD R3) Result Diagram: 07/08/16 0345 07/10/16 0445 Imaging Last Impressions Lumbar Spine MRI 07/08/16 0000 Signed Impressions: Service Date/Time: Friday, July 08, 2016 17:42 - CONCLUSION: 1. No significant central canal stenosis. Mild right-sided neural foraminal stenosis at L5-S1. Broad-based disc bulge at L3-4 without significant stenosis. No fracture or spondylolisthesis. Conus intact. Compa Gallardo MD Objective Remarks GENERAL: This is a well-nourished, well-developed obese female in no apparent distress. SKIN: No rashes, ecchymoses or lesions. Cool and dry. Multiple well-healed abdominal scars. EYES: Extraocular motions intact. No scleral icterus. No injection or drainage. ENT: Nose without bleeding, purulent drainage. Throat without erythema, tonsillar hypertrophy or exudate. Uvula midline. Airway patent. NECK: No lymphadenopathy. CARDIOVASCULAR: Regular rate and rhythm without murmurs, gallops, or rubs. RESPIRATORY: Clear to auscultation. Breath sounds equal bilaterally. No wheezes , rales, or rhonchi. GASTROINTESTINAL: Abdomen soft, nondistended. Tenderness to palpation or epigastric and RUQ. No rebound or guarding. Lots of redundant skin MUSCULOSKELETAL: Extremities without clubbing, cyanosis, or edema. NEUROLOGICAL: A little drowsy but awake and answers questions appropriately. Motor and sensory grossly within normal limits. Normal speech. (Yuni Guidry MD R3) A/P Assessment and Plan 45yo female with PMH significant for recurrent hypoglycemia, PUD, anemia and recurrent pancreatitis. Admitted for persistent hypoglycemia of unknown etiology. Awaiting records from [facility] from recent hospitalization. Patient reports possible history of AI, workup pending. Blood glucoses have been stable on steroids. In addition, she is scheduled for colonoscopy with Dr. Parmar this morning given history of persistent n/v and diarrhea. d/w Dr. Powell Discharge Planning Anticipate discharge home today or tomorrow pending GI clearance after colonoscopy. (Yuni Guidry MD R3) Attending Attestation Patient seen and examined. Case reviewed and discussed with the resident team. Agree with plan of care as discussed with me and documented in the resident note. she eats well per my observations and per the record she has 100% of her food eaten (Gris Powell MD) Problem List: (1) Hypoglycemia Status: Resolved Plan: History of recurrent episodes of hypoglycemia that has required multiple trips to the ED and hospitalizations. Has been going on for many months. Etiology unclear. Has continued to have hypoglycemic episodes in the ED despite D50 and eating. There may possibly be a component of adrenal insufficiency but this is unclear so sent for records from [place] where she has been hospitalized many times. Labs: -Cortisol level extremely low. -Insulin on 07/07: 140.4 and 46.8 on 07/08. -C-peptide 0.42 and 0.20 Plan: -Blood glucose stable on Hydrocortisone 25mg PO BID. -Continue Accu-checks -Records from [facility] requested. -Tube Lancer consulted -Will likely need outpatient follow up with endocrinology Imaging: * CT abdomen/pelvis 06/23/16: No acute findings. No mention of masses * Abdomen MRI ordered to evaluate for masses, will hold on this right now as pt has anxiety so will first try MRI of back as she may have had studies at [place] and had a recent CT abdomen. (2) Diarrhea Status: Chronic Plan: Patient still reports having diarrhea and fecal incontinence. Has been on metronidazole for a while. -C. difficile PCR pending -Electrolytes WNL despite vomiting and diarrhea. -GI consulted and patient scheduled for colonoscopy today -hold home Naloxegol Imaging: -MRI of lumbar spine: no significant stenosis (3) Chronic abdominal pain Status: Chronic Plan: Patient with history of multiple abdominal surgeries who continues to have chronic abdominal pain but unsure if abdominal pain can be due to adrenal insufficiency as this is different from her norm. Patient does have history of pancreatitis however amylase and lipase unremarkable. -Will hold on repeat CT as patient recently had one on 06/23/16. -Continue pain regimen. -GI consulted. Appreciate assistance (4) Intractable vomiting Status: Chronic Plan: Etiology unclear -Zofran, Phenergan, and Compazine prn -Steroids per above (5) Chronic low back pain Status: Chronic Plan: History of moderate to severe spinal stenosis on MRI 2013 and new sxs of fecal incontinence. MRI L-spine 07/08/16 with no significant central canal stenosis. Mild right-sided neural foraminal stenosis at L5-S1. Broad based disc bulge at L3-4 without significant stenosis. -Patient has Dilaudid pump per her pain management physician. However reports that she is having a lot more pain after her MRI and does not think that her pump is working. F/u with pain management physician as outpatient (6) Nutrition, metabolism, and development symptoms Status: Acute Plan: Diet: NPO and advance as tolerated after procedure Fluids: HLIV. Encourage oral fluid hydration Electrolytes: WNL GI PPX: Protonix DVT PPX: Lovenox Chronic conditions: * Anxiety/Depression: Duloxetine 60mg daily, Xanax * Insomnia: Trazodone 300mg daily (Yuni Guidry MD R3) Problem Qualifiers (1) Diarrhea: Qualified Code: R19.7 - Diarrhea, unspecified type (2) Intractable vomiting: Qualified Code: G43.A1 - Intractable cyclical vomiting with nausea (3) Chronic low back pain: Qualified Code: M54.40 - Chronic low back pain with sciatica, sciatica laterality unspecified, unspecified back pain laterality Yuni Guidry MD R3 Jul 12, 2016 10:17 Gris Powell MD Jul 13, 2016 13:59
[2016-07-12] MEDS: PROMETHAZINE INJ 25 MG/ML VIAL IM/IV PRN (11:36)
[2016-07-12] MEDS: HYDROCORTISONE 10 MG TAB PO SCH (11:36)
[2016-07-12 11:45] VITALS: BP 127/74; PULSE 65; RESP 16; TEMP 98.2; O2SAT 97
[2016-07-12 15:37] VITALS: BP 134/74; PULSE 82; RESP 16; TEMP 98.2; O2SAT 98
[2016-07-12 20:00] VITALS: BP 119/76; PULSE 77; RESP 18; TEMP 98.1; O2SAT 97
[2016-07-12] MEDS: ENOXAPARIN SODIUM 40 MG/0.4 ML SYRINGE SQ SCH (20:56)
[2016-07-12] MEDS: PANTOPRAZOLE SODIUM 40 MG VIAL IV PUSH SCH (20:58)
[2016-07-13] VITALS: BP 115/62; PULSE 87; RESP 20; TEMP 97.9; O2SAT 97
[2016-07-13] MEDS: HYDROmorphone HCL PF 1 MG/ML VIAL IV PRN ×4 (00:31→11:07)
[2016-07-13] MEDS: HYDROCORTISONE 10 MG TAB PO SCH ×2 (00:31→11:21)
[2016-07-13 04:00] VITALS: BP 117/71; PULSE 79; RESP 20; TEMP 98; O2SAT 97
[2016-07-13] MEDS: ONDANSETRON HCL 4 MG/2 ML VIAL IVP PRN ×2 (04:05→11:07)
[2016-07-13 07:00] VITALS: BP 125/76; PULSE 79; RESP 18; TEMP 98.7; O2SAT 98
[2016-07-13] MEDS: SODIUM CHLORIDE 23.4% INJ 154 MEQ in DEXTROSE 10% INJ 1,000 ML IV SCH (07:34)
[2016-07-13] MEDS: DRONABINOL 5 MG CAP PO PRN (07:49)
[2016-07-13] MEDS ORDERED: HYDRO10 PO (08:29)
--- NOTE | 2016-07-13 08:31 | HHI.DCPOC ---
Discharge Care Plan Diagnosis: (1) Chronic abdominal pain (2) Intractable vomiting (3) Diarrhea (4) Adrenal insufficiency (5) Hypoglycemia Goals to Promote Your Health * To prevent worsening of your condition and complications * To maintain your health at the optimal level Directions to Meet Your Goals Take your medications as prescribed Follow your dietary instruction Follow activity as directed Keep your appointments as scheduled Take your immunizations and boosters as scheduled If your symptoms worsen call your PCP, if no PCP go to Urgent Care Center or Emergency Room Smoking is Dangerous to Your Health. Avoid second hand smoke Call the 24-hour hour crisis hotline for domestic abuse at Yuni Guidry MD R3 Jul 13, 2016 08:30
[2016-07-13] MEDS ORDERED: HYDR20TA PO (09:43)
[2016-07-13] MEDS: DULoxetine HCl DR 60 MG CAP PO SCH (09:57)
[2016-07-13] MEDS: SODIUM CHLORIDE 0.9% FLUSH 5 ML FLUSH FLUSH SCH (09:57)
[2016-07-13] MEDS: LACTOBACILLUS ACIDOPHILUS TAB PO SCH (09:57)
--- NOTE | 2016-07-13 10:12 | HHI.FPPN ---
Subjective Remarks Patient seen and examined. No acute events overnight. Vital signs stable afebrile. She is status post colonoscopy yesterday. States that she continues to have diarrhea throughout the night as well as nausea. Vomited only once. However she would like to advance her diet to regular from clear liquids. Continues to complain of diffuse lower abdominal pain. Would like to go home today if she can. (Yuni Guidry MD R3) Objective Vitals Vital Signs Date Time Temp Pulse Resp B/P Pulse Ox O2 Delivery O2 Flow Rate FiO2 07/13/16 07:00 98.7 79 18 125/76 98 07/13/16 04:00 98.0 79 20 117/71 97 07/13/16 00:00 97.9 87 20 115/62 97 07/12/16 20:00 98.1 77 18 119/76 97 07/12/16 17:40 16 07/12/16 15:37 98.2 82 16 134/74 98 07/12/16 11:45 98.2 65 16 127/74 97 07/12/16 10:50 56 20 123/65 96 07/12/16 10:38 97.1 58 20 124/60 97 I/O 07/12/16 07/12/16 07/12/16 07/13/16 07/13/16 07/13/16 07:00 15:00 23:00 07:00 15:00 23:00 Intake Total 240 ml 800 ml 620 ml Balance 240 ml 800 ml 620 ml Intake Oral 240 ml 600 ml 620 ml IV Total 200 ml # Voids 4 4 3 # Bowel Movements 10 5 1 (Yuni Guidry MD R3) Result Diagram: 07/10/16 0445 Imaging Last Impressions Lumbar Spine MRI 07/08/16 0000 Signed Impressions: Service Date/Time: Friday, July 08, 2016 17:42 - CONCLUSION: 1. No significant central canal stenosis. Mild right-sided neural foraminal stenosis at L5-S1. Broad-based disc bulge at L3-4 without significant stenosis. No fracture or spondylolisthesis. Conus intact. Compa Gallardo MD Objective Remarks GENERAL: This is a well-nourished, well-developed obese female in no apparent distress. SKIN: No rashes, ecchymoses or lesions. Cool and dry. Multiple well-healed abdominal scars. EYES: Extraocular motions intact. No scleral icterus. No injection or drainage. ENT: Nose without bleeding, purulent drainage. Throat without erythema, tonsillar hypertrophy or exudate. Uvula midline. Airway patent. NECK: No lymphadenopathy. CARDIOVASCULAR: Regular rate and rhythm without murmurs, gallops, or rubs. RESPIRATORY: Clear to auscultation. Breath sounds equal bilaterally. No wheezes , rales, or rhonchi. GASTROINTESTINAL: Abdomen soft, nondistended. Tenderness to palpation diffusely along lower abdomen. No rebound or guarding. Lots of redundant skin MUSCULOSKELETAL: Extremities without clubbing, cyanosis, or edema. NEUROLOGICAL: Awake and answers questions appropriately. Motor and sensory grossly within normal limits. Normal speech. (Yuni Guidry MD R3) A/P Assessment and Plan 45yo female with PMH significant for recurrent hypoglycemia, PUD, anemia and recurrent pancreatitis. Admitted for persistent hypoglycemia of unknown etiology. Awaiting records from [facility] from recent hospitalization. Patient reports possible history of AI. Blood glucoses have been stable on steroids. d/w Dr. Powell Discharge Planning Anticipate discharge home today. Follow with PCP, GI, and endocrinology as an outpatient. (Yuni Guidry MD R3) Attending Attestation Patient seen and examined. Case reviewed and discussed with the resident team. Agree with plan of care as discussed with me and documented in the resident note. Spoke to Dr Westbrook at [place] who took care of her on her most recent hospitalization. Ms Ravi had Endocrine testing a year ago at [place], a 72 hour fast and mixed meal testing that did not result in hypoglycemia. However, now she is worse and is hypoglycemic regularly if not on hydrocortisone. Spoke to her about the importance of taking this med and that she can if she skips it. She will F/U with [place] and have a 72 hour fast again to determine the exact cause of her hypoglycemia. She does have a presumptive diagnosis of adrenal insufficiency. She wishes to have her pump for back pain checked today and will go over to the pain management office when she leaves here. She is not sedated and as long as she can ambulate well she can leave after getting some pain meds here, even iv. She will also F/U with Dr Parmar. The written note in her chart did not indicate any serious pathology for her colonoscopy. It is unclear exactly the dose and duration of linzess so she can see GI as an outpt and be given appropriate treatment. (Gris Powell MD) Problem List: (1) Hypoglycemia Status: Resolved Plan: History of recurrent episodes of hypoglycemia that has required multiple trips to the ED and hospitalizations. Has been going on for many months. Has continued to have hypoglycemic episodes in the ED despite D50 and eating. There may possibly be a component of adrenal insufficiency. Per Dr. Powell's conversation with physician at [place] who stated that cortisol levels were low during her hospitalization there. She was discharged home with Hydrocortisone 20mg in AM and 10mg at 4PM; however patient likely did not take her medications as prescribed. Labs: * Cortisol level extremely low. * Insulin on 07/07: 140.4 and 46.8 on 07/08. * C-peptide 0.42 and 0.20 Plan: -Blood glucose stable on Hydrocortisone 25mg PO BID; however will switch to steroid dose that was recommended by [facility] (Hydrocortisone 20mg in AM and 10mg at 4PM) -Continue Accu-checks -[employer] consulted -Outpatient follow up with endocrinology at [place]. Imaging: * CT abdomen/pelvis 06/23/16: No acute findings. No mention of masses * Abdomen MRI ordered to evaluate for masses, will hold on this right now as pt has anxiety so will first try MRI of back as she may have had studies at [place] and had a recent CT abdomen. (2) Diarrhea Status: Chronic Plan: Patient still reports having diarrhea and fecal incontinence. Has been on metronidazole for a while. -Electrolytes WNL despite vomiting and diarrhea. -s/p colonoscopy with GI yesterday. Report pending. F/U with GI as outpatient -hold home Naloxegol Imaging: -MRI of lumbar spine: no significant stenosis (3) Chronic abdominal pain Status: Chronic Plan: Patient with history of multiple abdominal surgeries who continues to have chronic abdominal pain but unsure if abdominal pain can be due to adrenal insufficiency as this is different from her norm. Patient does have history of pancreatitis however amylase and lipase unremarkable. -Continue pain regimen. -GI consulted. Appreciate assistance (4) Intractable vomiting Status: Chronic Plan: Etiology unclear -Zofran, Phenergan, and Compazine prn -Steroids per above (5) Chronic low back pain Status: Chronic Plan: History of moderate to severe spinal stenosis on MRI 2013 and new sxs of fecal incontinence. MRI L-spine 07/08/16 with no significant central canal stenosis. Mild right-sided neural foraminal stenosis at L5-S1. Broad based disc bulge at L3-4 without significant stenosis. -Patient has Dilaudid pump per her pain management physician. However reports that she is having a lot more pain after her MRI and does not think that her pump is working. F/u with pain management physician as outpatient (6) Nutrition, metabolism, and development symptoms Status: Acute Plan: Diet: Regular diet Fluids: HLIV. Encourage oral fluid hydration Electrolytes: WNL GI PPX: Protonix DVT PPX: Lovenox Chronic conditions: * Anxiety/Depression: Duloxetine 60mg daily, Xanax * Insomnia: Trazodone 300mg daily (Yuni Guidry MD R3) Problem Qualifiers (1) Diarrhea: Qualified Code: R19.7 - Diarrhea, unspecified type (2) Intractable vomiting: Qualified Code: G43.A1 - Intractable cyclical vomiting with nausea Yuni Guidry MD R3 Jul 13, 2016 10:12 Gris Powell MD Jul 13, 2016 11:00
[2016-07-13 11:00] VITALS: BP 126/80; PULSE 74; RESP 18; TEMP 98.1; O2SAT 97
--- NOTE | 2016-07-13 14:19 | HHI.DS ---
Discharge Summary Admission Date Jul 09, 2016 at 11:05 Discharge Date: Jul 13, 2016 Admitting Diagnosis hypoglycemia (1) Hypoglycemia Diagnosis: Principal Plan: History of recurrent episodes of hypoglycemia that has required multiple trips to the ED and hospitalizations. Has been going on for many months. Has continued to have hypoglycemic episodes in the ED despite D50 and eating. There may possibly be a component of adrenal insufficiency. Per Dr. Powell's conversation with physician at [place] who stated that cortisol levels were low during her hospitalization there. She was discharged home with Hydrocortisone 20mg in AM and 10mg at 4PM; however patient likely did not take her medications as prescribed. Labs: * Cortisol level extremely low. * Insulin on 07/07: 140.4 and 46.8 on 07/08. * C-peptide 0.42 and 0.20 Plan: -Blood glucose stable on Hydrocortisone 25mg PO BID; however will switch to steroid dose that was recommended by [place] (Hydrocortisone 20mg in AM and 10mg at 4PM) -Continue Accu-checks -Transportation Aide consulted -Outpatient follow up with endocrinology at [place]. Imaging: * CT abdomen/pelvis 06/23/16: No acute findings. No mention of masses * Abdomen MRI ordered to evaluate for masses, will hold on this right now as pt has anxiety so will first try MRI of back as she may have had studies at [place] and had a recent CT abdomen. (2) Diarrhea Plan: Patient still reports having diarrhea and fecal incontinence. Has been on metronidazole for a while. -Electrolytes WNL despite vomiting and diarrhea. -s/p colonoscopy with GI yesterday. Report pending. F/U with GI as outpatient -hold home Naloxegol Imaging: -MRI of lumbar spine: no significant stenosis (3) Chronic abdominal pain Plan: Patient with history of multiple abdominal surgeries who continues to have chronic abdominal pain but unsure if abdominal pain can be due to adrenal insufficiency as this is different from her norm. Patient does have history of pancreatitis however amylase and lipase unremarkable. -Continue pain regimen. -GI consulted. Appreciate assistance (4) Intractable vomiting Plan: Etiology unclear -Zofran, Phenergan, and Compazine prn -Steroids per above (5) Chronic low back pain Plan: History of moderate to severe spinal stenosis on MRI 2013 and new sxs of fecal incontinence. MRI L-spine 07/08/16 with no significant central canal stenosis. Mild right-sided neural foraminal stenosis at L5-S1. Broad based disc bulge at L3-4 without significant stenosis. -Patient has Dilaudid pump per her pain management physician. However reports that she is having a lot more pain after her MRI and does not think that her pump is working. F/u with pain management physician as outpatient (6) Nutrition, metabolism, and development symptoms Plan: Diet: Regular diet Fluids: HLIV. Encourage oral fluid hydration Electrolytes: WNL GI PPX: Protonix DVT PPX: Lovenox Chronic conditions: * Anxiety/Depression: Duloxetine 60mg daily, Xanax * Insomnia: Trazodone 300mg daily Consultants Gastroenterology: Dr. Parmar Procedures Colonoscopy on 07/12/16: Result pending Brief History Ms Ravi is a 45yo female with PMH significant for recurrent hypoglycemia, PUD, anemia and recurrent pancreatitis. She presented due to symptoms of hypoglycemia, abdominal pain, nausea/vomiting. Of note, patient has an extensive history of recurrent hypoglycemia, abdominal pain and cyclical vomiting that has not resolved in over a year. She frequently follows up at [facility] and was hospitalized at [facility] for the same symptoms. Her most recent hospitalization was at [facility] on 06/30. She does not remember her diagnosis but remembers being told to be on low-dose prednisone but she did not want to take it due to weight gain. She reported to me that she was placed on Decadron in the hospital at [place] and "it fixed her low sugars". She did not start immediately on steroids when she went home but stated she did have them filled at the Pharmacy and did take them at least some on Sat, , Sat and Sat. However, it is unclear if she took the prescribed doses as now she does not remember the exact medicine. She does report feeling better at [place] with Decadron and being ready to go home on Saturday. She also reported having an [employer] at [place] though she cannot remember the Drs name. The pt also describes multiple tests which could be a mixed meal test or other tests and did mention adrenal insufficiency though no records are available right now and they are being sent for. In regards to this presentation, nausea, vomiting, diarrhea, abdominal pain started 2 days prior to admission but has progressively worsened. She had been unable to keep any food down during this time and has had loss of appetite. Of note, patient was seen in clinic on 07/05 at which time she was already complaining of fecal incontinence that started about 5 weeks ago. She was seen by her pain doctor that placed her Dilaudid pump a few days ago and increased her Dilaudid dosage to 0.1239 mg/day. On the day of admission, diarrhea was 3- 4 episodes. Described as foul smelling without blood. Starts out with solid pieces but then progresses to liquid. She did start back on her chronic Flagyl 3 days ago. Denies any fevers but does endorse subjective hot flashes and chills. In relation to her abdominal pain, it is located in the epigastric and RUQ. Described as abdominal pressure, throbbing and sharp pain that has also progressively worsened. She did start back on her low-dose prednisone of unknown mg the day before admission. She is due for colonoscopy this coming up. An MRI is ordered as an outpt but she complains about fecal incontinence and has a history of severe narrowing on her L spine so ordered a non contrast MRI here. Ms Ravi is not the clearest historian and told Dr Ernst that she was not taking her home dose of steroids but told me she took them though she could not say what the medicine was or exactly how often she took this med. If she is adrenally insufficient and missed doses of her medicine she would get many of the sxs she has now including abdominal pain (though she has that chronically) plus low glucoses, also potentially low K and nausea, vomiting and weight loss. She denies specific orthostatic sxs of hypotension but does say that her BPs are chronically low. Her cortisone level is very low. This would verify a diagnosis of adrenal insufficiency but if she was taking hydrocortisone or even prednisone at home that can effect her testing. Getting her records from [place] would be of the most benefit as her glucoses are so low into the 20s that she cannot be without adequate treatment at this time including decadron iv now. I gave her a handout on adrenal insufficiency as if she does have this problem she needs to understand how important it is to take take her meds properly. She is responding to treatment and her glucoses are better and she has less nausea, vomiting and pain at this time. CBC/BMP: 07/10/16 0445 Imaging Lumbar Spine MRI 07/08/16 0000 Signed Impressions: Service Date/Time: Friday, July 08, 2016 17:42 - CONCLUSION: 1. No significant central canal stenosis. Mild right-sided neural foraminal stenosis at L5-S1. Broad-based disc bulge at L3-4 without significant stenosis. No fracture or spondylolisthesis. Conus intact. Compa Gallardo MD PE at Discharge GENERAL: This is a well-nourished, well-developed obese female in no apparent distress. SKIN: No rashes, ecchymoses or lesions. Cool and dry. Multiple well-healed abdominal scars. EYES: Extraocular motions intact. No scleral icterus. No injection or drainage. ENT: Nose without bleeding, purulent drainage. Throat without erythema, tonsillar hypertrophy or exudate. Uvula midline. Airway patent. NECK: No lymphadenopathy. CARDIOVASCULAR: Regular rate and rhythm without murmurs, gallops, or rubs. RESPIRATORY: Clear to auscultation. Breath sounds equal bilaterally. No wheezes , rales, or rhonchi. GASTROINTESTINAL: Abdomen soft, nondistended. Tenderness to palpation diffusely along lower abdomen. No rebound or guarding. Lots of redundant skin MUSCULOSKELETAL: Extremities without clubbing, cyanosis, or edema. NEUROLOGICAL: Awake and answers questions appropriately. Motor and sensory grossly within normal limits. Normal speech. Hospital Course Ms. Ravi is a 46 year old female who was admitted on 07/08/16 for hypoglycemia and persistent N/V/diarrhea. She was started on D10 fluid and Decadron. Blood glucose remained stable so we transitioned her to oral Hydrocortisone. We suspect that her hypoglycemia may be secondary to adrenal insufficiency. Cortisol levels were consistently low. In addition, GI was consulted for inpatient colonoscopy given nausea, vomiting, and diarrhea. Colonoscopy result pending. On 07/13/16, patient is deemed stable for discharge. She will need to follow up with PCP and GI within 1 week. She also needs to follow up with endocrinology at [facility] for further evaluation of suspected adrenal insufficiency. Pt Condition on Discharge: Stable Discharge Disposition: Discharge Home Discharge Instructions DIET: Follow Instructions for: As Tolerated, No Restrictions Activities you can perform: Regular-No Restrictions Follow up Referrals: Endocrinology - 1 Week Gastroenterology - 1 Week with Triston Parmar MD Pain Management - 1 Week PCP Follow-up - 1 Week with Wanda Russo MD R2 New Medications: Hydrocortisone (Hydrocortisone) 20 Mg Tab 20 MG PO DIRECTED Take 20mg in the morning and 10mg at 4pm. Take with food to decrease GI upset #60 Ref 0 TAB Continued Medications: Alprazolam (Xanax) 1 Mg Tab 1 MG PO BID PRN ANXIETY #60 Ref 0 TAB Yjioyktnvt-Wrnpimh-Kjjkqkai (Fiorinal) 50-325-40 Mg Cap 1 CAP PO Q6HR Do not exceed 6 capsules/day. PRN HEADACHE #60 Ref 1 CAP Dronabinol (Marinol) 5 Mg Cap 5 MG PO BID Ref [address] (Duloxetine DR) 60 Mg Capdr 60 MG PO DAILY #30 Ref 1 CAP Metronidazole (Flagyl) 500 Mg Tab Unknown Dose PO TID Infection Ref 0 TAB Naloxegol (Movantik) 12.5 Mg Tab 12.5 MG PO DAILY Prevent Constipation #30 Ref 0 TAB Ondansetron Odt (Zofran Odt) 4 Mg Tab 4 MG SL Q6HR PRN Nausea/Vomiting #30 Ref 0 TAB Oxycodone-Acetaminophen (Percocet) 10-325 mg Tab 1 TAB PO TID PRN PAIN Ref 0 TAB Tizanidine (Zanaflex) 4 Mg Cap 4 MG PO TID PRN prn Ref 0 CAP Trazodone (Trazodone) 300 Mg Tab 300 MG PO HS Insomnia #30 Ref 11 TAB ([dilaudid pain pump]) ([pancreatic enzymes]) Discontinued Medications: Hydrocortisone (Hydrocortisone) 5 Mg Tab Unknown Dose PO BID Take with food to decrease GI upset Ref 0 TAB Yuni Guidry MD R3 Jul 13, 2016 14:19
--- NOTE | 2016-07-13 18:45 | MR ---
cc: MICHAEL RODRIGUEZ M.D. DATE: 07/13/2016. PROCEDURE PERFORMED: Colonoscopy. INDICATIONS FOR THE PROCEDURE: Evaluation of abdominal pain, diarrhea and constipation. Photographs and biopsies taken. PREMEDICATION: Administered by anesthesiology. MONITORING: Monitoring was accomplished by pulse oximeter, EKG, blood pressure monitor. DESCRIPTION OF THE PROCEDURE IN DETAIL: After informed consent was obtained and the procedure risks and benefits explained including the risks of bleeding, sepsis, perforation and risks of anesthesia, the patient was placed in the left lateral position. The video enteroscope was inserted into the rectum. Upon entrance into the rectum, it was immediately noted that the patient had retained fecal matter of a thick and semi-solid consistency. The scope was maneuvered as best as possible using the water jet device. Complete evaluation of the mucosa was inhibited by the residual stool. The scope was advanced through the transverse colon. Again, there was thick tenacious stool noted throughout the colon. The right colon and ascended cecal area were approached. Once again, it was quite difficult to rule out any underlying pathology due to the large amount of stool. Therefore complete evaluation was not possible on this exam today. At any event, when the stool was lavaged and certain areas of the mucosa did appear to be normal, I did obtain random biopsies in the colon throughout to rule out microscopic disease. The scope was gradually withdrawn. The patient tolerated the procedure well. No immediate complications were noted. IMPRESSION: This examination reveals a significant retention of colonic stool throughout making the examination quite difficult and unfortunately complete evaluation was not possible on today's exam. I did not note any obvious obstruction. I did not note any obvious masses, but once again, visualization was limited. Random cone biopsies were taken. When visualized, the mucosa appeared to be grossly normal. PLAN: 1. Would continue current therapy. 2. The patient should be considered for medication such as Linzess 290 micrograms a day. 3. The patient can be followed up as an outpatient afterwards. 4. Will discuss with the patient. MD MATIAS Hidalgo/PEG /10:41 AM /6:39 PM
[2016-07-24] MEDS ORDERED: ALBUAER3 INH (15:22)
[2016-07-24] MEDS ORDERED: GUAI1SOL7 PO (15:22)
[2016-07-24] MEDS ORDERED: DULO1CAP3 PO (15:23)
[2016-09-17] MEDS ORDERED: CARPAL TUNNEL W1 MIS ×2 (14:39→14:54)
[2016-09-17] MEDS ORDERED: XANA1TAB2 PO (14:45)
[2016-09-17] MEDS ORDERED: ZOFR4TAB3 SL (14:45)
[2016-09-17] MEDS ORDERED: GABA300C5 PO (14:49)
[2016-09-18] MEDS ORDERED: TRIA40P I-ARTICULR ×2 (11:36→11:56)
== END 2016-07-13 13:16 | disposition home or self-care (01) | DRG 641 ==
LOC: NEPE 16:03 → NEDA 20:04 → NEDH 07-08 00:36 → HCIS 07-08 09:39 → OBSVTOIN 07-09 11:05
PROVIDERS: ADMIT Family Medicine; ATTEND Family Medicine
PROC: 0DBE8ZX Excision of Large Intestine, Via Natural or Artificial Opening Endoscopic, Diagnostic (ICD-10-PCS; principal; 2016-07-12 10:07)
DX: E16.2 Hypoglycemia, unspecified (principal); K86.1 Other chronic pancreatitis; R11.10 Vomiting, unspecified; R19.7 Diarrhea, unspecified; Z98.84 Bariatric surgery status; R10.9 Unspecified abdominal pain; Z87.11 Personal history of peptic ulcer disease; D64.9 Anemia, unspecified; E66.9 Obesity, unspecified; Z68.41 Body mass index [BMI] 40.0-44.9, adult; Z86.718 Personal history of other venous thrombosis and embolism; G89.29 Other chronic pain; M54.5 Low back pain; E87.6 Hypokalemia; Z91.14 Patient's other noncompliance with medication regimen; K59.00 Constipation, unspecified
CPT/HCPCS: 72148; 80048; 80053; 81001; 82010; 82150; 82533; 82948; 83525; 83690; 84681; 84703; 85025; 87641; 88305; 96374; 96375; 96376; C9113; G0378; J1100; J1170; J1610; J1642; J1650; J2060; J2405; J2550; J2765; J7030; J7042; J7120

== ENCOUNTER 2016-07-17 20:20 | Observation (INO) | payer MEDICARE, OTHER, MEDICAID ==
[~2016-07-17] VITALS: Ht 165.1 cm; Wt 120.0 kg
[~2016-07-17 20:20] MED LIST changes: +DILAUDID PAIN PUMP; +HYDR20TA PO; +METR-1 PO
[2016-07-17 20:24] VITALS: BP 162/79; PULSE 108; RESP 20; O2SAT 100
[2016-07-17 20:48] VITALS: BP 165/69; PULSE 100; RESP 20; O2SAT 99
[2016-07-17] MEDS ORDERED: DEXT 5%-NACL 0.9% 1000 ML INJ 1,000 ML IV ONE (21:00)
--- NOTE | 2016-07-17 21:06 | PD ---
HPI Chief Complaint: Abdominal Pain Time Seen by Provider: 20:45 Travel History International Travel<30 days: No Contact w/Intl Traveler<30days: No Traveled to known affect area: No History of Present Illness HPI The patient is a 46 year old female with a past medical history significant for recurrent hypoglycemia, peptic ulcer disease, anemia, recurrent pancreatitis, chronic abdominal pain, recurrent nausea and vomiting of undetermined cause who presents to the [facility] emergency department with a history of recurrence of abdominal pain that began at approximately 11 AM this morning. She reports that she has not been able to keep any food down today. She reports that she's had nausea and vomiting 4 times today, diarrhea 2. She denies having any blood in her stool or black or tarry stools. She reports that her last exacerbation was July 07, 2016. She reports that she followed up with her jumpbasting facing baster, Dr. Parmar last week. She reports that he did of colonoscopy and has started her on Flagyl and pancreatic enzymes. The patient on arrival to this facility reports that her blood sugar has been low throughout the day today. The patient's initial blood sugar is noted to be 46. The patient is given orange juice and appears to be able to keep it down. A few minutes later her blood sugar was rechecked and noted to be 60. The patient is awake and alert and providing all of her history. The patient's pain is located in the midepigastric area and right upper quadrant of the abdomen. She reports that the pain is constant although waxes and wanes in severity. She reports pain in the right upper quadrant is a sharp sensation near her lower rib. She denies having any injury. The midepigastric pain is an aching sensation. The patient on review of systems reports that she has had a subjective fever intermittently since Saturday, a cough that occasionally productive of yellow sputum, and a clear rhinorrhea. The patient reports having generalized weakness. The patient's significant other is at the bedside and reports that he has been giving her glucose tablets and honey without improvement of her sugar at home. The patient denies any history of fever, cough, congestion, neck pain, chest pain, shortness of breath, abdominal pain, vomiting, diarrhea, urinary symptoms, or neurologic symptoms. [facility] Past Medical History Narrative Medical The patient's past medical history is significant for migraine headaches, anxiety disorder, chronic low back pain, peptic ulcer disease, with recurrent abscesses, recurrent pancreatitis, recurrent vomiting, chronic abdominal pain, hypoglycemia, history of upper extremity DVT 2 due to line placement, anemia. Arthritis: Yes Anxiety: Yes Depression: No Heart Rhythm Problems: No Cancer: No Cardiovascular Problems: No High Cholesterol: No Chest Pain: No Congestive Heart Failure: No Diabetes: Yes (HYPOGLYCEMIA) Patient Takes Glucophage: No Diminished Hearing: No Diverticulitis: Yes Endocrine: No Gastrointestinal Disorders: Yes (GASTRITIS,ESOPHAGITIS, N&V, HX ULCERS) GERD: No Genitourinary: Yes (PROLAPSED BLADDER) Hepatitis: No Hiatal Hernia: No Immune Disorder: No Implanted Vascular Access Dvce: Yes Kidney Stones: Yes Medical other: Yes (ABDOMINAL HERNIA) Musculoskeletal: Yes (DDD, LUMBAR HERNIATED DISC L5-S1) Neurologic: Yes (MIGRAINES, "BLACK OUT SPELLS") Psychiatric: Yes (CLAUSTROPHOBIA) Reproductive: No Respiratory: No Migraines: Yes Pancreatitis: Yes Renal Failure: No Seizures: Yes Thyroid Disease: No Ulcer: Yes (HEALED GASTRIC) Influenza Vaccination: Yes ?: Not : 2 Para: 2 Tubal Ligation: Yes Past Surgical History Narrative Surgical The patient's past surgical history is significant for a left-sided Infuse-a- Port placement, cholecystectomy, 2, bilateral tubal ligation, back surgery L4-L5 discectomy, gastric sleeve surgery in 2013, abscess drainage and feeding tube placement in June 2014, hysterectomy, bladder sling, dilaudid pain pump placement. Abdominal Surgery: Yes (SLEEVE SX ON 11/04/13,CHOLY) AICD: No Body Medical Devices: NONE Cardiac Surgery: No Section: Yes (x2) Cholecystectomy: Yes (LAP. IN 2011) Ear Surgery: No Eye Surgery: No Genitourinary Surgery: No Gynecologic Surgery: Yes (C SECTION (X2), TUBAL LIG.) Hysterectomy: Yes Joint Replacement: No Oral Surgery: No Pacemaker: No Thoracic Surgery: No Other Surgery: Yes (LEFT THIGH I&D FOR MRSA) Social History Alcohol Use: No Tobacco Use: No (never) Substance Use: No Allergies-Medications (Allergen,Severity, Reaction): Coded Allergies: Cipro (Verified Allergy, Severe, Hives, ABD PAIN, 07/17/16) Doxycycline (Verified Allergy, Severe, SWELLING, HIVES, 07/17/16) Nonsteroidal Anti-Inflammatory Agts (Verified Allergy, Severe, 07/17/16) DUE TO A SURGICAL PROCEDURE IN THE PAST Cleocin (Verified Allergy, Intermediate, HIVES, 07/17/16) Contrast Media (Verified Allergy, Intermediate, Hives, 07/17/16) Vancomycin (Verified Allergy, Intermediate, HIVES, 07/17/16) Biaxin (Verified Adverse Reaction, Intermediate, NAUSEA, 07/17/16) Motrin (Verified Adverse Reaction, Intermediate, ULCERS, ABD PAIN, 07/17/16 ) PT HAS ULCERS, DOES NOT WISH TO TAKE. Toradol (Verified Adverse Reaction, Intermediate, 07/17/16) ABDOMINAL PAIN Bactrim (Verified Adverse Reaction, Mild, abdominal pain, 07/17/16) Has had since without difficulty (reaction was years ago) Reported Meds & Prescriptions Reported Meds & Active Scripts Active Hydrocortisone 20 Mg Tab 20 Mg PO DIRECTED Take 20mg in the morning and 10mg at 4pm. Take with food to decrease GI upset Trazodone (Trazodone HCl) 300 Mg Tab 300 Mg PO HS Fiorinal (Butalbital/Aspirin/Caffeine) 50-325-40 Mg Cap 1 Cap PO Q6HR PRN Do not exceed 6 capsules/day. Duloxetine DR (Duloxetine HCl) 60 Mg Capdr 60 Mg PO DAILY Xanax (Alprazolam) 1 Mg Tab 1 Mg PO BID PRN Reported Flagyl (Metronidazole) 500 Mg Tab Unknown Dose PO TID [dilaudid pain pump] Movantik (Naloxegol) 12.5 Mg Tab 12.5 Mg PO DAILY [pancreatic enzymes] Zanaflex (Tizanidine HCl) 4 Mg Cap 4 Mg PO TID PRN Marinol (Dronabinol) 5 Mg Cap 5 Mg PO BID Percocet (Oxycodone-Acetaminophen) 10-325 mg Tab 1 Tab PO TID PRN Zofran Odt (Ondansetron Odt) 4 Mg Tab 4 Mg SL Q6HR PRN Review of Systems General / Constitutional: No: Fever Eyes: No: Visual changes HENT: No: Headaches Cardiovascular: No: Chest Pain or Discomfort Respiratory: No: Shortness of Breath Gastrointestinal: Positive: Nausea, Vomiting, Diarrhea, Abdominal Pain, Changes in Bowel Habits, Indigestion, Loss of Appetite Genitourinary: No: Dysuria Musculoskeletal: No: Pain Skin: No Rash Neurologic: Positive: Weakness (generalized weakness), No: Focal Abnormalities , Coordination Problem, Change in Mentation, Slurred Speech, Sensory Disturbance Psychiatric: No: Depression Endocrine: No: Polydipsia Hematologic/Lymphatic: No: Easy Bruising Physical Exam Narrative General: The patient is a well-developed well-nourished female in no acute distress. Head and Neck exam: Head is normocephalic atraumatic. Eyes: EOMI, pupils are equal round and reactive to light. Nose: Midline septum with pink mucous membranes Mouth: Dentition unremarkable. Moist mucus membranes. Posterior oropharynx is not erythematous. No tonsillar hypertrophy. Uvula midline. Airway patent. Neck: No palpable lymphadenopathy. No nuchal rigidity. No thyromegaly. Cardiovascular: Regular rate and rhythm without murmurs, gallops, or rubs. The patient has an [id number] in place in the left upper chest without any evidence of overlying erythema or edema, no tenderness on palpation. Lungs: Clear to auscultation bilaterally. No wheezes, rhonchi, or rales. Abdomen: Soft, tenderness on palpation in the midepigastric area and right upper quadrant of the abdomen. She has tenderness overlying the lower rib without any crepitus or step-off. No guarding, rebound, or rigidity. Negative [place] sign. Extremities: No clubbing, cyanosis, or edema. 2+ pulses in all 4 extremities. No calf tenderness on palpation. Back: No spinous process tenderness to palpation. No costovertebral angle tenderness to palpation. Neurologic Exam: Grossly nonfocal. The patient was alert and oriented 4. The patient had no change in her mentation with her blood sugar being low other than experiencing generalized weakness. Skin Exam: No rash noted. Intact skin that is warm and dry. Data Data Last Documented VS Vital Signs Date Time Temp Pulse Resp B/P Pulse Ox O2 Delivery O2 Flow Rate FiO2 07/17/16 20:48 100 20 165/69 99 Room Air Orders Electrocardiogram (07/17/16 20:51) Complete Blood Count With Diff (07/17/16 20:51) Comprehensive Metabolic Panel (07/17/16 20:51) C-Reactive Protein (Crp) (07/17/16 20:51) Lipase (07/17/16 20:51) Urinalysis - C+S If Indicated (07/17/16 20:51) Chest, Single Ap (07/17/16 20:51) Iv Access Insert/Monitor (07/17/16 20:51) Ecg Monitoring (07/17/16 20:51) Oximetry (07/17/16 20:51) Ed Urine Pregnancytest Poc (07/17/16 20:51) Lactic Acid Sepsis Protocol (07/17/16 20:51) Blood Culture (07/17/16 20:53) Dext 5%-Nacl 0.9% 1000 Ml Inj (D5w-Ns 10 (07/17/16 21:00) Dextrose 50% In Brittany (Vial) Inj (D50w (Vi (07/17/16 21:45) Ondansetron Inj (Zofran Inj) (07/17/16 22:00) Hydromorphone Pf Inj (Dilaudid Pf Inj) (07/17/16 22:00) Pantoprazole Inj (Protonix Inj) (07/17/16 22:00) D10w Inj (Dextrose 10% In Water Inj) (07/17/16 22:30) Sodium Chlor 0.9% 1000 Ml Inj (Ns 1000 M (07/17/16 22:30) Admit Order (Ed Use Only) (07/17/16 22:32) Labs Laboratory Tests Test 07/17/16 07/17/16 21:00 22:05 White Blood Count 6.7 TH/MM3 Red Blood Count 3.99 MIL/MM3 Hemoglobin 10.6 GM/DL Hematocrit 31.8 % Mean Corpuscular Volume 79.8 FL Mean Corpuscular Hemoglobin 26.7 PG Mean Corpuscular Hemoglobin 33.4 % Concent Red Cell Distribution Width 13.5 % Platelet Count 287 TH/MM3 Mean Platelet Volume 7.5 FL Neutrophils (%) (Auto) 77.3 % Lymphocytes (%) (Auto) 11.7 % Monocytes (%) (Auto) 9.3 % Eosinophils (%) (Auto) 1.6 % Basophils (%) (Auto) 0.1 % Neutrophils # (Auto) 5.1 TH/MM3 Lymphocytes # (Auto) 0.8 TH/MM3 Monocytes # (Auto) 0.6 TH/MM3 Eosinophils # (Auto) 0.1 TH/MM3 Basophils # (Auto) 0.0 TH/MM3 CBC Comment DIFF FINAL Differential Comment Sodium Level 137 MEQ/L Potassium Level 3.4 MEQ/L Chloride Level 101 MEQ/L Carbon Dioxide Level 27.3 MEQ/L Anion Gap 9 MEQ/L Blood Urea Nitrogen 12 MG/DL Creatinine 0.67 MG/DL Estimat Glomerular Filtration 95 ML/MIN Rate Random Glucose 57 MG/DL Lactic Acid Level 2.7 mmol/L Calcium Level 8.7 MG/DL Total Bilirubin 0.2 MG/DL Aspartate Amino Transf 13 U/L (AST/SGOT) Alanine Aminotransferase 19 U/L (ALT/SGPT) Alkaline Phosphatase 88 U/L C-Reactive Protein 0.85 MG/DL Total Protein 6.5 GM/DL Albumin 3.0 GM/DL Lipase 177 U/L Urine Color YELLOW Urine Turbidity HAZY Urine pH 7.5 Urine Specific [place] 1.011 Urine Protein NEG mg/dL Urine Glucose (UA) NEG mg/dL Urine Ketones NEG mg/dL Urine Occult Blood NEG Urine Nitrite NEG Urine Bilirubin NEG Urine Urobilinogen LESS THAN 2.0 MG/DL Urine Leukocyte Esterase NEG Urine RBC LESS THAN 1 /hpf Urine WBC LESS THAN 1 /hpf Urine Squamous Epithelial <1 /hpf Cells Urine Mucus FEW /lpf Microscopic Urinalysis Comment CULT NOT INDICATED MDM Medical Decision Making Medical Screen Exam Complete: Yes Emergency Medical Condition: Yes Medical Record Reviewed: Yes Interpretation(s) Laboratory Tests Test 07/17/16 07/17/16 21:00 22:05 White Blood Count 6.7 TH/MM3 Red Blood Count 3.99 MIL/MM3 Hemoglobin 10.6 GM/DL Hematocrit 31.8 % Mean Corpuscular Volume 79.8 FL Mean Corpuscular Hemoglobin 26.7 PG Mean Corpuscular Hemoglobin 33.4 % Concent Red Cell Distribution Width 13.5 % Platelet Count 287 TH/MM3 Mean Platelet Volume 7.5 FL Neutrophils (%) (Auto) 77.3 % Lymphocytes (%) (Auto) 11.7 % Monocytes (%) (Auto) 9.3 % Eosinophils (%) (Auto) 1.6 % Basophils (%) (Auto) 0.1 % Neutrophils # (Auto) 5.1 TH/MM3 Lymphocytes # (Auto) 0.8 TH/MM3 Monocytes # (Auto) 0.6 TH/MM3 Eosinophils # (Auto) 0.1 TH/MM3 Basophils # (Auto) 0.0 TH/MM3 CBC Comment DIFF FINAL Differential Comment Sodium Level 137 MEQ/L Potassium Level 3.4 MEQ/L Chloride Level 101 MEQ/L Carbon Dioxide Level 27.3 MEQ/L Anion Gap 9 MEQ/L Blood Urea Nitrogen 12 MG/DL Creatinine 0.67 MG/DL Estimat Glomerular Filtration 95 ML/MIN Rate Random Glucose 57 MG/DL Lactic Acid Level 2.7 mmol/L Calcium Level 8.7 MG/DL Total Bilirubin 0.2 MG/DL Aspartate Amino Transf 13 U/L (AST/SGOT) Alanine Aminotransferase 19 U/L (ALT/SGPT) Alkaline Phosphatase 88 U/L C-Reactive Protein 0.85 MG/DL Total Protein 6.5 GM/DL Albumin 3.0 GM/DL Lipase 177 U/L Urine Color YELLOW Urine Turbidity HAZY Urine pH 7.5 Urine Specific [place] 1.011 Urine Protein NEG mg/dL Urine Glucose (UA) NEG mg/dL Urine Ketones NEG mg/dL Urine Occult Blood NEG Urine Nitrite NEG Urine Bilirubin NEG Urine Urobilinogen LESS THAN 2.0 MG/DL Urine Leukocyte Esterase NEG Urine RBC LESS THAN 1 /hpf Urine WBC LESS THAN 1 /hpf Urine Squamous Epithelial <1 /hpf Cells Urine Mucus FEW /lpf Microscopic Urinalysis Comment CULT NOT INDICATED Differential Diagnosis Exacerbation of chronic abdominal pain, versus acute pancreatitis, versus chronic pancreatitis, versus peptic ulcer disease, versus Narrative Course During the course of the patients emergency department visit, the patients history, examination, and differential diagnosis were reviewed with the patient. The patient had IV access obtained and blood work sent for analysis. The patient was placed on a radiation monitor. The patient's initial blood sugar out from was noted to be in the 40s. The patient was given orange to use and was able to tolerate this by mouth without vomiting. The patient's repeat blood sugar on arrival back in the room was 60. The patient was provided D5 normal saline 1 L IV fluid bolus was started. On this fluid bolus the patient's blood sugar again went down to 48. The patient was given one half of an amp of D50. The patient's fluid bolus was completed and the patient was started on a D10 W at 40 mL an hour. The patient on repeat blood sugar was up to 77. The patients laboratory studies were reviewed and remarkable for a white count of 6.7, hemoglobin 10.6, platelets 287 with 77.3 neutrophils, lymphocytes 11.7, monocytes 9.3. CMP is remarkable for potassium of 3.4, glucose 57, lactic acid 2.7, AST 13, C-reactive protein 0.85, lipase 177, urinalysis is unremarkable. Radiology studies were reviewed and remarkable for a chest x-ray that shows no acute abnormality. The patients results were discussed with the patient, including the plan of care. I explained that further testing and/ or monitoring is indicated based on the patients history, examination, and/ or laboratory findings. Therefore, I recommended admission for additional evaluation. The patient expressed understanding and was agreeable with this plan. The patient was admitted to the hospital in guarded condition and sent to a bed under the care of the family practice residents. Physician Communication Physician Communication The patient's case was discussed with the family practice residents who did agree to admit the patient for further evaluation and treatment at this time. Diagnosis Primary Impression: Hypoglycemia Additional Impression: Abdominal pain Qualified Code: R10.13 - Epigastric pain Admitting Information Admitting Physician Requests: Admit Mady Randolph MD Jul 17, 2016 21:06
--- NOTE | 2016-07-17 21:23 | RADRPT ---
EXAM DATE/TIME: 07/17/2016 21:14 [place] COMPARISON: CHEST SINGLE AP, June 23, 2016, 6:08. INDICATIONS : Free air. Lower chest and upper abdomen pain. MEDICAL HISTORY : Pancreatitis. Diverticulitis. seizures SURGICAL HISTORY : Hysterectomy. Cholecystectomy. Tubal ligation. Discectomy, lumbar, gastric ENCOUNTER: Initial ACUITY: 1 week PAIN SCORE: 10/10 LOCATION: Bilateral chest FINDINGS: There is a left subclavian [id number] in place. The heart size is normal. The lungs are clear. Old healed right-sided rib fractures are seen. CONCLUSION: No acute abnormality is seen. Navjot Harrison MD on July 17, 2016 at 21:18 Board Certified Radiologist. This report was verified electronically.
[2016-07-17] MEDS ORDERED: DEXTROSE 50% IN WATER 50 ML VIAL(D50) IV PUSH ONE ×2 (21:45→23:00)
[2016-07-17 21:49] LABS: AUTOMATED NEUTROPHIL # 5.1 TH/MM3 (1.8-7.7); BASOPHIL % 0.1 % (0.0-2.0); EOSINOPHIL # 0.1 TH/MM3 (0-0.4); EOSINOPHIL % 1.6 % (0.0-4.0); HEMATOCRIT 31.8 % (35.0-46.0); HEMO FLAGS DIFF FINAL; LYMPH % 11.7 % (9.0-44.0); LYMPHOCYTE # 0.8 TH/MM3 (1.0-4.8); MEAN CELL VOLUME 79.8 FL (80.0-100.0); MEAN CORPUSCULAR HEMOGLOBIN 26.7 PG (27.0-34.0); MEAN CORPUSCULAR HGB CONC 33.4 % (32.0-36.0); MONO % 9.3 % (0.0-8.0); NEUT % 77.3 % (16.0-70.0); PLATELET COUNT 287 TH/MM3 (150-450); RED BLOOD COUNT 3.99 MIL/MM3 (4.00-5.30); RED CELL DISTRIBUTION WIDTH 13.5 % (11.6-17.2); WHITE BLOOD COUNT 6.7 TH/MM3 (4.0-11.0)
[2016-07-17] MEDS ORDERED: ONDANSETRON HCL 4 MG/2 ML VIAL IV ONE (22:00)
[2016-07-17] MEDS ORDERED: PANTOPRAZOLE SODIUM 40 MG VIAL IV PUSH ONE (22:00)
[2016-07-17] MEDS ORDERED: HYDROmorphone HCL PF 1 MG/ML VIAL IV PUSH ONE (22:00)
[2016-07-17 22:13] LABS: ALT (GPT) 19 U/L (10-53); ANION GAP 9 MEQ/L (5-15); AST (GOT) 13 U/L (15-37); BICARBONATE 27.3 MEQ/L (21.0-32.0); BLOOD UREA NITROGEN 12 MG/DL (7-18); CHLORIDE 101 MEQ/L (98-107); GLOMERULAR FILTRATION RATE 95 ML/MIN (>89); POTASSIUM 3.4 MEQ/L (3.5-5.1); SODIUM (NA) 137 MEQ/L (136-145)
[2016-07-17 22:15] LABS: ALKALINE PHOSPHATASE 88 U/L (45-117); TOTAL BILIRUBIN ADULT 0.2 MG/DL (0.2-1.0)
[2016-07-17 22:24] LABS: BLOOD, URINE NEG (NEG); COMMENT (UR) CULT NOT INDICATED; CULTURE IF INDICATED CULT NOT INDICATED; GLUCOSE,URINE NEG (NEG); KETONE, URINE NEG (NEG); MUCUS URINE FEW /lpf (OCC); NITRITE,URINE NEG (NEG); PH, URINE 7.5 (5.0-8.5); SQUAMOUS EPITHELIAL CELL URINE <1 /hpf (0-5); URINE COLOR YELLOW (YELLW/STRAW)
[2016-07-17] MEDS ORDERED: SODIUM CHLOR 0.9% 1000 ML INJ 1,000 ML IV ONE (22:30)
[2016-07-17] MEDS: DEXTROSE 10% INJ 1,000 ML IV SCH (22:42)
[2016-07-17] MEDS ORDERED: METR-1 PO (22:56)
[2016-07-17] MEDS ORDERED: NALOXONE HCL 0.4 MG/ML AMP IV PRN (23:00)
[2016-07-17] MEDS ORDERED: GLUCAGON 1 MG/ML VIAL IM ONE (23:00)
[2016-07-17] MEDS ORDERED: POTASSIUM CHLORIDE 20 MEQ CONTROLLED RELEASE TAB PO ONE (23:00)
[2016-07-17] MEDS ORDERED: SODIUM CHLORIDE 0.9% FLUSH 5 ML FLUSH FLUSH PRN (23:00)
[2016-07-17] MEDS ORDERED: ACETAMINOPHEN 325 MG TAB PO PRN (23:00)
[2016-07-17] MEDS ORDERED: ASPIRIN 325 MG/CAFFEINE 40 MG/BUTALBITAL 50 MG CAP PO PRN (23:00)
[2016-07-17] MEDS ORDERED: ALPRAZolam 1 MG TAB PO PRN (23:00)
--- NOTE | 2016-07-17 23:11 | HHI.HP ---
[facility] Service Family Medicine Primary Care Physician Non-Staff Admission Diagnosis Persistent Hypoglycemia, abdominal pain, dehydration Diagnoses: International Travel<30 Days: No Contact w/Intl Traveler<30days: No Known Affected Area: No History of Present Illness 46-year-old female with past medical history of chronic low back pain, insomnia , anxiety/depression recently admitted for intractable nausea vomiting and hypoglycemia presenting again with the same symptoms. On last hospital admission , diagnosis of adrenal insufficiency was suspected due to low cortisol level, nausea/vomiting/hypoglycemia, and concomitant hypokalemia. She had been started on hydrocortisone 20 mg in the morning and 10 mg at nighttime, however she has only been taking 10 mg daily because she said they make her feel funny. Her current symptoms started this morning at which time she felt dizzy/lightheaded, diffusely weak, and crampy especially in her right upper abdomen. She checked her blood sugars and they have been as low as 38 at home. They corrected somewhat with demonstration of food but were persistently less than 60. In mid afternoon she started having some NBNB vomiting (3 total episodes today). She also developed diarrhea (3 loose / watery bowel movements today). Review of systems otherwise negative except for some subjective fever, cough, congestion and upper respiratory symptoms which were started on discharge from previous hospital stay. Of note, she had been taking metronidazole prior to last admission due to her GI physician suspecting C. difficile, and she now has resumed taking this medication. She has 2 days left of her course of therapy. ( Juan Antonio Herrera MD R1) Review of Systems Constitutional: COMPLAINS OF: Fever, DENIES: Chills Endocrine: DENIES: Heat/cold intolerance Eyes: DENIES: Eye pain Ears, nose, mouth, throat: DENIES: Ear Pain Respiratory: COMPLAINS OF: Cough, Wheezing, DENIES: Sputum production, Shortness of breath Cardiovascular: DENIES: Chest pain, Palpitations Gastrointestinal: COMPLAINS OF: Abdominal pain, Diarrhea, Nausea, Vomiting, DENIES: Black stools, Bloody stools, Constipation Genitourinary: DENIES: Abnormal vaginal bleeding Musculoskeletal: COMPLAINS OF: Muscle aches Integumentary: DENIES: Rash Hematologic/lymphatic: DENIES: Bruising Immunologic/allergic: DENIES: Urticaria Neurologic: DENIES: Headache Psychiatric: DENIES: Confusion, Depression (Juan Antonio Herrera MD R1) Past Family Social History Past Medical History Migraine headaches Anxiety Chronic Low Back Pain PUD Complications after gastric surgery - hospitalized for several months with abscesses May-Jul 2013, Recurrent pancreatitis since gastric surgery- followed by GI at [facility] Upper Extremity DVT x2 (2014 and 2015) due to lines Anemia possible adrenal insufficiency Past Surgical History Cholecystectomy x 2 Tubal Ligation Back surgery (L4/L5 discectomy) Gastric sleeve surgery February 2014 Abscess drainage and drain placement as well as J-tube placement June 2014. Hysterectomy Bladder sling Dilaudid pump in back Reported Medications Reported Meds & Active Scripts Active Flagyl (Metronidazole) 500 Mg Tab 500 Mg PO TID Hydrocortisone 20 Mg Tab 20 Mg PO DIRECTED Take 20mg in the morning and 10mg at 4pm. Take with food to decrease GI upset Trazodone (Trazodone HCl) 300 Mg Tab 300 Mg PO HS Fiorinal (Butalbital/Aspirin/Caffeine) 50-325-40 Mg Cap 1 Cap PO Q6HR PRN Do not exceed 6 capsules/day. Duloxetine DR (Duloxetine HCl) 60 Mg Capdr 60 Mg PO DAILY Xanax (Alprazolam) 1 Mg Tab 1 Mg PO BID PRN Reported [dilaudid pain pump] Movantik (Naloxegol) 12.5 Mg Tab 12.5 Mg PO DAILY [pancreatic enzymes] Zanaflex (Tizanidine HCl) 4 Mg Cap 4 Mg PO TID PRN Marinol (Dronabinol) 5 Mg Cap 5 Mg PO BID Percocet (Oxycodone-Acetaminophen) 10-325 mg Tab 1 Tab PO TID PRN Zofran Odt (Ondansetron Odt) 4 Mg Tab 4 Mg SL Q6HR PRN (Juan Antonio Herrera MD R1) Allergies: Coded Allergies: Cipro (Verified Allergy, Severe, Hives, ABD PAIN, 07/17/16) Doxycycline (Verified Allergy, Severe, SWELLING, HIVES, 07/17/16) Nonsteroidal Anti-Inflammatory Agts (Verified Allergy, Severe, 07/17/16) DUE TO A SURGICAL PROCEDURE IN THE PAST Cleocin (Verified Allergy, Intermediate, HIVES, 07/17/16) Contrast Media (Verified Allergy, Intermediate, Hives, 07/17/16) Vancomycin (Verified Allergy, Intermediate, HIVES, 07/17/16) Biaxin (Verified Adverse Reaction, Intermediate, NAUSEA, 07/17/16) Motrin (Verified Adverse Reaction, Intermediate, ULCERS, ABD PAIN, 07/17/16 ) PT HAS ULCERS, DOES NOT WISH TO TAKE. Toradol (Verified Adverse Reaction, Intermediate, 07/17/16) ABDOMINAL PAIN Bactrim (Verified Adverse Reaction, Mild, abdominal pain, 07/17/16) Has had since without difficulty (reaction was years ago) Active Ordered Medications Current Medications Medications (Trade) Dose Ordered Sig/Yaneth Route Start Time Stop Time Status Last Admin Dextrose 1,000 ml @ 40 mls/hr Q24H IV 07/17/16 22:30 07/17/16 22:42 (NS 1000 ml Inj) 1,000 ml @ 1,000 mls/hr Q1H ONCE IV 07/17/16 22:30 07/17/16 23:29 (NS Flush) 2 ml UNSCH PRN FLUSH 07/17/16 23:00 UNV (NS Flush) 2 ml BID FLUSH 07/18/16 09:00 UNV (Tylenol) 650 mg Q4H PRN PO 07/17/16 23:00 UNV (Zofran Inj) 4 mg Q6H PRN IVP 07/17/16 23:00 UNV (Narcan Inj) 0.4 mg UNSCH PRN IV 07/17/16 23:00 UNV (Xanax) 1 mg BID PRN PO 07/17/16 23:00 UNV (Fiorinal 325-40-50) 1 cap Q6HR PRN PO 07/17/16 23:00 UNV (Marinol) 5 mg BID PO 07/18/16 09:00 UNV (Cymbalta Dr) 60 mg DAILY PO 07/18/16 09:00 UNV (Percocet 10-325 Mg) 1 tab TID PRN PO 07/17/16 23:00 UNV (Zanaflex) 4 mg TID PRN PO 07/17/16 23:00 UNV (Desyrel) 300 mg HS PO 07/18/16 21:00 UNV (D50w (Vial) Inj) 25 ml NOW ONCE IV PUSH 07/17/16 23:00 07/17/16 23:01 UNV (Glucagon Inj) 1 mg NOW ONCE IM 07/17/16 23:00 07/17/16 23:01 UNV (KCl) 20 meq ONCE ONCE PO 07/17/16 23:00 07/17/16 23:01 UNV (Flagyl) 500 mg TID PO 07/18/16 09:00 UNV Family History Mother - Healthy. Maternal Aunt- Breast Ca, one with stomach Ca (and two others with unknown cancers). Father - skin cancer. Breast cancer in paternal aunt. Cousin with melanoma. Grandmother with unknown blood disorder Social History Denies tobacco, alcohol and illicit drug use. (Jaun Antonio Herrera MD R1) Physical Exam Vital Signs Vital Signs Date Time Temp Pulse Resp B/P Pulse Ox O2 Delivery O2 Flow Rate FiO2 07/17/16 20:48 100 20 165/69 99 Room Air 07/17/16 20:24 108 20 162/79 100 Physical Exam GENERAL: Well-developed, obese adult white female lying in bed appearing uncomfortable but in no acute distress SKIN: No rashes, ecchymoses or lesions. Cool and dry. HEAD: NC/AT EYES: PERRL. EOMI. No conjunctival injection or drainage. ENT: MMM, OP without erythema, tonsillar swelling, or exudate. NECK: Supple, no lymphadenopathy. CARDIOVASCULAR: NRRR. Normal S1/S2. No MRG RESPIRATORY: CTAB. No crackles or wheezes. GASTROINTESTINAL: Many large striae present. Abdomen soft, obese but non- distended, Tender to palpation in epigastrium and left lateral abdomen, slight tenderness of palpation of RUQ. No rebound or guarding noted. No hepato- splenomegaly or palpable masses. MUSCULOSKELETAL: Extremities without clubbing, cyanosis, or edema. NEUROLOGICAL: Awake and alert. Cranial nerves II through XII grossly intact. Moves all extremities without difficulty. Normal speech. Laboratory Laboratory Tests Test 07/17/16 07/17/16 21:00 22:05 White Blood Count 6.7 Red Blood Count 3.99 Hemoglobin 10.6 Hematocrit 31.8 Mean Corpuscular Volume 79.8 Mean Corpuscular Hemoglobin 26.7 Mean Corpuscular Hemoglobin 33.4 Concent Red Cell Distribution Width 13.5 Platelet Count 287 Mean Platelet Volume 7.5 Neutrophils (%) (Auto) 77.3 Lymphocytes (%) (Auto) 11.7 Monocytes (%) (Auto) 9.3 Eosinophils (%) (Auto) 1.6 Basophils (%) (Auto) 0.1 Neutrophils # (Auto) 5.1 Lymphocytes # (Auto) 0.8 Monocytes # (Auto) 0.6 Eosinophils # (Auto) 0.1 Basophils # (Auto) 0.0 CBC Comment DIFF FINAL Differential Comment Sodium Level 137 Potassium Level 3.4 Chloride Level 101 Carbon Dioxide Level 27.3 Anion Gap 9 Blood Urea Nitrogen 12 Creatinine 0.67 Estimat Glomerular Filtration 95 Rate Random Glucose 57 Lactic Acid Level 2.7 Calcium Level 8.7 Total Bilirubin 0.2 Aspartate Amino Transf 13 (AST/SGOT) Alanine Aminotransferase 19 (ALT/SGPT) Alkaline Phosphatase 88 C-Reactive Protein 0.85 Total Protein 6.5 Albumin 3.0 Lipase 177 Urine Color YELLOW Urine Turbidity HAZY Urine pH 7.5 Urine Specific [place] 1.011 Urine Protein NEG Urine Glucose (UA) NEG Urine Ketones NEG Urine Occult Blood NEG Urine Nitrite NEG Urine Bilirubin NEG Urine Urobilinogen LESS THAN 2.0 Urine Leukocyte Esterase NEG Urine RBC LESS THAN 1 Urine WBC LESS THAN 1 Urine Squamous Epithelial <1 Cells Urine Mucus FEW Microscopic Urinalysis Comment CULT NOT INDICATED Date/Time Procedure Status Source Growth 07/17/16 21:00 Aerobic Blood Culture Received Blood Peripheral Pending 07/17/16 21:00 Anaerobic Blood Culture Received Blood Peripheral Pending (Juan Antonio Herrera MD R1) Result Diagram: 07/17/16209907/17/162099 Imaging Last Impressions Chest X-Ray 07/17/162050 Signed Impressions: Service Date/Time: Sunday, July 17, 2016 21:14 - CONCLUSION: No acute abnormality is seen. Navjot Harrison MD (Juan Antonio Herrera MD R1) Assessment and Plan Assessment and Plan 46-year-old female with past medical history of chronic back/abdominal pain, suspected adrenal insufficiency presenting with: Code Status Full code (Juan Antonio Herrera MD R1) Attending Attestation The patient has been seen and examined. The chart and all resident notes have been reviewed. I agree that inpatient care is appropriate and that a two midnight stay is expected for the reasons documented in the resident history and physical. I have discussed this with the resident and certify the resident s order for inpatient admission. (Zoya Foss MD) Problem List: (1) Hypoglycemia Status: Acute Plan: Extensive workup on prior hospitalization for recurrent episodes of hypoglycemia and conversation with [facility] at which she had been previously admitted suggest these episodes are due to adrenal insufficiency given extremity low cortisol on prior admissions. She has not been taking her corticosteroids as prescribed. Last admission, her insulin levels elevated and her C-peptide level was low, so could be factitious hypoglycemia from exogenous insulin, though she denies use of insulin or other hypoglycemic agents. * D10W at 100 mL per hour * Accu-Cheks every hour, can space out after 3 consecutive are greater than 70 * As needed ampules of D5 per hypoglycemia protocol * Check C-peptide, insulin level * Resume hydrocortisone as prescribed on prior discharge: 20 mg in a.m., 10 mg at nighttime * BMP in a.m. (2) Intractable vomiting Status: Chronic Plan: Several episodes of vomiting on prior admission and now symptoms are recurring, nonbloody nonbilious * Zofran every 6 hours IV as needed for nausea (3) Diarrhea Status: Acute Plan: Currently being treated for C. difficile, though this could likely be related to a viral syndrome as well * C. difficile PCR * Continue metronidazole 500 mg PO TID * Fluids as above (4) Adrenal insufficiency Status: Acute Plan: Hydrocortisone as above (5) Hypokalemia Status: Chronic Plan: Chronic, likely related to suspected adrenal insufficiency versus vomiting/diarrhea * Status post 20 mEq oral potassium in ER * Repeat BMP in the morning * Monitor and replete as needed (6) Chronic abdominal pain Status: Chronic Plan: Current abdominal pain in keeping with her prior history, no red flag symptoms or concerning features on exam, no need for additional imaging at this time * Continue home Percocet 10 mg 3 times a day as needed * Follow up abdominal exam (7) Chronic low back pain Status: Chronic Plan: Stable, on pain pump * Percocet as above * Continue home Zanaflex (8) Migraine Status: Chronic Plan: Not currently symptomatic, continue home Fiorinal (9) Mood disorder Status: Chronic Plan: Stable, continue home duloxetine; continue home trazodone for associated insomnia (10) DVT Prophylaxis Status: Acute Plan: Lovenox 40 mg SQ daily (11) Nutrition, metabolism, and development symptoms Status: Acute Plan: Fluids: D10W at 100 mL/h Electrolytes: Monitor and replete as needed Nutrition: Diet adult regular sdw Dr. Dupree (Juan Antonio Herrera MD R1) Problem Qualifiers (1) Intractable vomiting: Qualified Code: R11.2 - Intractable vomiting with nausea, unspecified vomiting type (2) Chronic low back pain: Qualified Code: M54.5 - Chronic midline low back pain without sciatica (3) Migraine: Qualified Code: G43.709 - Chronic migraine without aura without status migrainosus, not intractable Juan Antonio Herrera MD R1 Jul 17, 2016 23:11 Zoya Foss MD Jul 19, 2016 15:11
[2016-07-17 23:15] LABS: LACTIC ACID GHOST NOT REPORTABLE
[2016-07-17] MEDS: ONDANSETRON HCL 4 MG/2 ML VIAL IVP PRN (23:45)
[2016-07-18] MEDS ORDERED: ENOXAPARIN SODIUM 40 MG/0.4 ML SYRINGE SQ SCH
[2016-07-18] MEDS: oxyCODONE/ACETAMINOPHEN 10 MG/325 MG TAB PO PRN ×2 (00:26→06:50)
[2016-07-18 01:52] VITALS: BP 114/53; PULSE 97; RESP 18; O2SAT 96
[2016-07-18] MEDS ORDERED: HYDROmorphone HCL PF 1 MG/ML VIAL IV ONE (02:00)
[2016-07-18] MEDS ORDERED: DEXTROSE 50% IN WATER 50 ML VIAL(D50) IV PUSH ONE (02:30)
[2016-07-18] MEDS ORDERED: HYDROCORTISONE 10 MG TAB PO ONE (02:30)
[2016-07-18 03:54] LABS: C. DIFF EPI 027 PRESUMPTIVE NEGATIVE (NEGATIVE); C. DIFF TOXIN PCR NEGATIVE (NEGATIVE)
[2016-07-18] MEDS: ONDANSETRON HCL 4 MG/2 ML VIAL IVP PRN ×2 (06:18→14:26)
[2016-07-18 06:46] VITALS: BP 150/57; PULSE 90; RESP 17; O2SAT 96
[2016-07-18] MEDS ORDERED: HYDROCORTISONE 10 MG TAB PO SCH ×2 (07:00→16:00)
[2016-07-18] MEDS ORDERED: DEXTROSE 50% IN WATER 50 ML VIAL(D50) IV PUSH PRN (07:45)
[2016-07-18 09:00] VITALS: BP 117/68; PULSE 89; RESP 16; O2SAT 96
[2016-07-18] MEDS ORDERED: DULoxetine HCl DR 60 MG CAP PO SCH (09:00)
[2016-07-18] MEDS ORDERED: DRONABINOL 5 MG CAP PO SCH (09:00)
[2016-07-18] MEDS ORDERED: metroNIDAZOLE 500 MG TAB PO SCH (09:00)
[2016-07-18] MEDS ORDERED: SODIUM CHLORIDE 0.9% FLUSH 5 ML FLUSH FLUSH SCH (09:00)
--- NOTE | 2016-07-18 09:02 | HHI.FPPN ---
Subjective Subjective Patient seen and examined with Dr. Guidry. Case reviewed with the resident team. Please refer to resident H&P for further details regarding HPI, ROS, PMH, SurgHx , FH, SocHx In summary, patient is a 46yoF presenting with complaints of hypoglycemia at home. She was recently hospitalized and had notable hypoglycemia in her prior hospitalization. She is resting in bed, on D10 IVF. She had glucose noted to 28 on arrival but repeat >70s Patient is asking for Dilaudid IV and Zofran She also was found by nursing to be digging around in the cart in her hospital room, and nursing reported behavior that was concerning including patient having her own glucometer and calling nursing in when she checked her own sugar and found it to be in the 20s. When I asked patient about this, she reported that she had been digging through the drawers looking for a bag for her clothes. [facility] Objective Objective Last Impressions Chest X-Ray 07/17/162050 Signed Impressions: Service Date/Time: Sunday, July 17, 2016 21:14 - CONCLUSION: No acute abnormality is seen. Navjot Harrison MD Laboratory Tests - Abnormals Test 07/17/16 07/17/16 07/17/16 21:00 22:05 23:40 Red Blood Count 3.99 MIL/MM3 Hemoglobin 10.6 GM/DL Hematocrit 31.8 % Mean Corpuscular Volume 79.8 FL Mean Corpuscular Hemoglobin 26.7 PG Neutrophils (%) (Auto) 77.3 % Monocytes (%) (Auto) 9.3 % Lymphocytes # (Auto) 0.8 TH/MM3 Potassium Level 3.4 MEQ/L Random Glucose 57 MG/DL Lactic Acid Level 2.7 mmol/L 2.5 mmol/L Aspartate Amino Transf 13 U/L (AST/SGOT) C-Reactive Protein 0.85 MG/DL Albumin 3.0 GM/DL Urine Turbidity HAZY Urine Mucus FEW /lpf Vital Signs 07/17/16 07/17/16 07/18/16 07/18/16 20:24 20:48 01:52 06:46 Pulse 108 100 97 90 Resp B/P 162/79 165/69 114/53 150/57 Pulse Ox 100 99 96 96 O2 Delivery Room Air Room Air Room Air Physical exam GENERAL: Obese female, resting in bed. SKIN: Warm and dry. No rashes, lesions HEAD: Normocephalic. AT EYES: No scleral icterus. No injection or drainage. ENT: OP clear. MMM. NECK: Supple, trachea midline. No JVD or lymphadenopathy. CARDIOVASCULAR: Regular rate and rhythm with 2-3/6 MALIK, no gallops, or rubs. RESPIRATORY: Breath sounds equal and clear to auscultation bilaterally. No accessory muscle use. GASTROINTESTINAL: Abdomen soft, TTP over epigastrium, nondistended. Hypoactive BS. No rebound, guarding. MUSCULOSKELETAL: No cyanosis, or edema. NO calf tenderness. BACK: Nontender without obvious deformity. No CVA tenderness. Pain pump NT and palpable over L lower back without evidence of infection. NEURO: Awake and alert. Normal speech. CN grossly intact. Assessment Assessment 46yoF admitted with: Hypoglycemia Elevated lactic acid Migraine headaches Anxiety Chronic Low Back Pain PUD Complications after gastric surgery - hospitalized for several months with abscesses May-Jul 2013, Recurrent pancreatitis since gastric surgery- followed by GI at [place] Hypoglycemia Upper Extremity DVT x2 (2014 and 2015) due to lines Anemia possible adrenal insufficiency PLAN PLAN Continue frequent accu-checks Abdominal ultrasound to r/o insulinoma F/u lab studies Resume home meds as appropriate Request records from [facility] Anti-emetics Caution with narcotics given nausea. There is concern for possible exogenous insulin injection, will order sitter for room given concerns and potential risk of severe hypoglycemia Patient seen and examined with Dr. Guidry. Case reviewed and discussed Agree with plan of care as discussed with me and documented in the resident note. Zoya Foss MD Jul 18, 2016 09:02
[2016-07-18] MEDS ORDERED: PROMETHAZINE INJ 25 MG/ML VIAL IM/IV PRN (09:15)
[2016-07-18] MEDS: DEXTROSE 10% INJ 1,000 ML IV SCH (09:16)
[2016-07-18 11:00] VITALS: BP 140/61; PULSE 97; RESP 16; O2SAT 96
--- NOTE | 2016-07-18 11:23 | RADRPT ---
EXAM DATE/TIME: 07/18/2016 10:52 [place] COMPARISON: No previous studies available for comparison. EXTERNAL COMPARISON : [facility], [employer] [facility] gastric emptying, April 12, 2016 INDICATIONS : Abdominal pain. MEDICAL HISTORY : DDD. Hernia. Hypoglycemia. Peptic ulter disease. Pancreatitis. Chronic abdominal pain. Nausea a nd vomiting. DVT. SURGICAL HISTORY : Cholecystectomy. section. Tubal ligation. Sleeve surgery. Hysterectomy. ENCOUNTER: Initial ACUITY: 1 day PAIN SCORE: 7/10 LOCATION: Bilateral upper quadrant MEASUREMENTS: LIVER: 19.5 cm length COMMON DUCT: Non-visualized RIGHT KIDNEY: 11.8 x 7.0 x 5.8 cm LEFT KIDNEY: 15.1 x 5.2 x 6.5 cm SPLEEN: 9.9 cm length AORTA: 1.7cm maximal FINDINGS: Suboptimal examination secondary to the patient's body habitus and overlying bowel gas with limited v isualization. LIVER: The liver is enlarged measuring up to 19.5 cm in diameter with diffuse increased echogenicity and no focal lesion. Visualization was suboptimal. There is no intrahepatic ductal dilatation. There was no evidence of ascites. COMMON DUCT: Could not be visualized. GALLBLADDER: Status post cholecystectomy. PANCREAS: The visualized portions are within normal limits. RIGHT KIDNEY: Suboptimal visualization. The kidney appears grossly unremarkable. LEFT KIDNEY: Suboptimal visualization. The kidney appears grossly unremarkable. SPLEEN: No focal lesion. AORTA: Non aneurysmal. IVC: Within normal limits. CONCLUSION: 1. Suboptimal examination with limited visualization. 2. The liver is enlarged with findings characteristic of fatty infiltration. 3. Status post cholecystectomy. Phani Mitchell MD on July 18, 2016 at 11:19 Board Certified Radiologist. This report was verified electronically.
--- NOTE | 2016-07-18 11:52 | EC ---
Study Study Date:07/18/2016 STUDY CONCLUSIONS SUMMARY - Procedure narrative: Transthoracic echocardiography. Image quality was poor. Scanning was performed from the parasternal, apical, and subcostal acoustic windows. - Left ventricle: The cavity size was normal. Wall thickness was normal. Systolic function was normal. The estimated ejection fraction was in the range of 60% to 65%. Regional wall motion abnormalities cannot be excluded. - Aortic valve: Poorly visualized. - Tricuspid valve: Trace regurgitation. If LV function is below 40, please consider prescribing an ACEI or ARB or document rationale for non-use. PROCEDURE DATA STUDY STATUS: Elective. Procedure: Transthoracic echocardiography. Image quality was poor. Scanning was performed from the parasternal, apical, and subcostal acoustic windows. Study completion: The patient tolerated the procedure well. Transthoracic echocardiography. M-mode, complete 2D, complete spectral Doppler, and color Doppler. Patient status: Inpatient. CARDIAC ANATOMY LEFT VENTRICLE: The cavity size was normal. Wall thickness was normal. Systolic function was normal. The estimated ejection fraction was in the range of 60% to 65%. Regional wall motion abnormalities cannot be excluded. AORTIC VALVE: Poorly visualized. Doppler: Transvalvular velocity was within the normal range. There was no stenosis. No regurgitation. Peak gradient: 16mm Hg (S). AORTA: Aortic root: The aortic root was normal in size. MITRAL VALVE: Structurally normal valve. Doppler: Transvalvular velocity was within the normal range. There was no evidence for stenosis. No regurgitation. Peak gradient: 4mm Hg (D). LEFT ATRIUM: The atrium was normal in size. RIGHT VENTRICLE: The cavity size was normal. Wall thickness was normal. PULMONIC VALVE: Doppler: Transvalvular velocity was within the normal range. There was no evidence for stenosis. No regurgitation. TRICUSPID VALVE: Structurally normal valve. Doppler: Transvalvular velocity was within the normal range. Trace regurgitation. PULMONARY ARTERY: The main pulmonary artery was normal-sized. Systolic pressure was within the normal range. RIGHT ATRIUM: The atrium was normal in size. PERICARDIUM: There was no pericardial effusion. SYSTEMIC VEINS: Inferior vena cava: The vessel was normal in size. BASIC MEASUREMENTS ADULT Normal Left ventricle LV internal dimension, ED, chordal level, *53.2 mm 43-52 PLAX LV internal dimension, ES, chordal level, *41.7 mm 23-38 PLAX Fractional shortening, chordal level, PLAX *22 % >29 LV posterior wall thickness, ED 7.04 mm IVS/LVPW ratio, ED 1.04 <1.3 Ventricular septum Septal thickness, ED 7.35 mm Aortic valve Leaflet separation 20 mm 15-26 Left atrium Anterior-posterior dimension 30 mm BASIC MEASUREMENTS ADULT Normal Aortic valve Leaflet separation 20 mm 15-26 Aorta Root diameter, ED 30 mm 20-37 DOPPLER MEASUREMENTS ADULT Normal Aortic valve Peak velocity, S 201 cm/s Peak gradient, S 16 mm Hg Mitral valve Peak E-wave velocity 102 cm/s Peak A-wave velocity 128 cm/s Peak gradient, D 4 mm Hg Peak E/A ratio 0.8 Tricuspid valve Regurgitant peak velocity 183 cm/s Peak RV-RA gradient, S 13 mm Hg Maximal regurgitant velocity 183 cm/s LEGEND: Mean values are shown as u=mean value. Asterisk (*) wren values outside specified normal range. Prepared and signed by Josep Heller [id number]
[2016-07-18 11:59] VITALS: BP 140/63; PULSE 102; RESP 18; O2SAT 96
[2016-07-18 13:27] LABS: AUTOMATED NEUTROPHIL # 3.4 TH/MM3 (1.8-7.7); BASOPHIL % 0.1 % (0.0-2.0); EOSINOPHIL # 0.2 TH/MM3 (0-0.4); EOSINOPHIL % 3.5 % (0.0-4.0); HEMATOCRIT 27.2 % (35.0-46.0); HEMO FLAGS DIFF FINAL; LYMPH % 22.4 % (9.0-44.0); LYMPHOCYTE # 1.2 TH/MM3 (1.0-4.8); MEAN CELL VOLUME 80.3 FL (80.0-100.0); MEAN CORPUSCULAR HEMOGLOBIN 27.6 PG (27.0-34.0); MEAN CORPUSCULAR HGB CONC 34.4 % (32.0-36.0); PLATELET COUNT 265 TH/MM3 (150-450); RED BLOOD COUNT 3.39 MIL/MM3 (4.00-5.30); RED CELL DISTRIBUTION WIDTH 13.3 % (11.6-17.2); WHITE BLOOD COUNT 5.2 TH/MM3 (4.0-11.0)
[2016-07-18 13:30] LABS: BICARBONATE 24.2 MEQ/L (21.0-32.0)
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
[2016-07-18 17:00] VITALS: BP 117/66; PULSE 101; RESP 18; O2SAT 99
[2016-07-18] MEDS ORDERED: SODIUM CHLOR 0.9% 1000 ML INJ 1,000 ML IV ONE (17:30)
[2016-07-18] MEDS ORDERED: traZODone HCL 100 MG TAB PO SCH (21:00)
--- NOTE | 2016-07-18 22:57 | EKG ---
Date Performed: 07/17/2016 Time Performed: 21:06:52 PTAGE: 46 years EKG: Sinus rhythm NORMAL ECG PREVIOUS TRACING : 04/04/2016 23.22 DOCTOR: Sriram Chavarria Interpretating Date/Time 07/18/2016 22:54:32
--- NOTE | 2016-07-19 00:40 | PD.AMA ---
Juan Antonio Herrera MD R1 07/19/16 0040: Against Medical Advice Note Discharge Disposition: Against Medical Advice Pt Condition on Discharge: Stable AMA Statement Patient Lorena Ravi has decided to leave the hospital against medical advice. This patient has the capacity to refuse care and understands the risks of leaving, including permanent disability and/or , and has had an opportunity to ask questions about her condition. The patient has been informed that she may return for care at any time, and follow up has been arranged/ advised. Zoya Foss MD 07/19/16 1517: Juan Antonio Herrera MD R1 Jul 19, 2016 00:40 Zoya Foss MD Jul 19, 2016 15:17
[2016-07-19] MEDS ORDERED: DRONABINOL 5 MG CAP PO SCH (09:00)
--- NOTE | 2016-07-20 11:35 | HHI.FPPN ---
Addendum to progress note ADDENDUM Reason for addendum: Additonal documentation Additional information Ms. Ravi is a 46 year old female who was admitted for recurrent hypoglycemia, nausea, vomiting, and chronic abdominal pain. Patient continues to have intermittent episodes of hypoglycemia during hospitalization despite receiving dextrose with IV fluids. Yuni Guidry MD R3 Jul 20, 2016 11:35
[2016-07-24] MEDS ORDERED: ALBUAER3 INH (15:22)
[2016-07-24] MEDS ORDERED: GUAI1SOL7 PO (15:22)
[2016-07-24] MEDS ORDERED: DULO1CAP3 PO (15:23)
[2016-09-17] MEDS ORDERED: CARPAL TUNNEL W1 MIS ×2 (14:39→14:54)
[2016-09-17] MEDS ORDERED: XANA1TAB2 PO (14:45)
[2016-09-17] MEDS ORDERED: ZOFR4TAB3 SL (14:45)
[2016-09-17] MEDS ORDERED: GABA300C5 PO (14:49)
[2016-09-18] MEDS ORDERED: TRIA40P I-ARTICULR ×2 (11:36→11:56)
== END 2016-07-18 20:29 | disposition left against medical advice (07) ==
LOC: NEPE 20:20 → NEDA 22:34 → INTOOBSV 22:34 → NEDH 07-18 03:00 → NEDA 07-18 15:13
PROVIDERS: ADMIT Family Medicine; ATTEND Family Medicine
DX: E16.2 Hypoglycemia, unspecified (principal); E86.0 Dehydration; E87.6 Hypokalemia; R10.9 Unspecified abdominal pain; R11.10 Vomiting, unspecified; N28.9 Disorder of kidney and ureter, unspecified; M54.9 Dorsalgia, unspecified; F39 Unspecified mood [affective] disorder; G43.909 Migraine, unspecified, not intractable, without status migrainosus; Z80.3 Family history of malignant neoplasm of breast; Z80.0 Family history of malignant neoplasm of digestive organs
CPT/HCPCS: 71010; 76700; 80048; 80053; 81001; 82010; 83525; 83605; 83690; 84681; 84703; 85025; 86140; 86337; 87040; 87493; 93005; 93306; 96361; 96374; 96375; 99285; C9113; G0378; J1170; J1610; J1650; J2405; J2550; J7030; J7042

== ENCOUNTER 2016-08-02 21:19 | Emergency (ER) | payer MEDICARE, OTHER ==
[~2016-08-02] VITALS: Ht 165.1 cm; Wt 118.0 kg
[~2016-08-02 21:19] MED LIST changes: +ALBUAER3 INH; +GUAI1SOL7 PO
[2016-08-02 21:21] VITALS: BP 130/63; PULSE 94; RESP 16; TEMP 98.2; O2SAT 95
[2016-08-03 03:06] LABS: AUTOMATED NEUTROPHIL # 1.4 TH/MM3 (1.8-7.7); BASOPHIL % 0.1 % (0.0-2.0); EOSINOPHIL # 0.1 TH/MM3 (0-0.4); EOSINOPHIL % 4.6 % (0.0-4.0); HEMATOCRIT 31.6 % (35.0-46.0); HEMO FLAGS DIFF FINAL; LYMPH % 38.3 % (9.0-44.0); LYMPHOCYTE # 1.2 TH/MM3 (1.0-4.8); MEAN CELL VOLUME 78.8 FL (80.0-100.0); MEAN CORPUSCULAR HEMOGLOBIN 25.5 PG (27.0-34.0); MEAN CORPUSCULAR HGB CONC 32.3 % (32.0-36.0); MONO % 12.7 % (0.0-8.0); NEUT % 44.3 % (16.0-70.0); PLATELET COUNT 247 TH/MM3 (150-450); RED BLOOD COUNT 4.02 MIL/MM3 (4.00-5.30); WHITE BLOOD COUNT 3.1 TH/MM3 (4.0-11.0)
[2016-08-03 03:15] LABS: ALT (GPT) 14 U/L (10-53); ANION GAP 7 MEQ/L (5-15); AST (GOT) 14 U/L (15-37); BICARBONATE 29.1 MEQ/L (21.0-32.0); BLOOD UREA NITROGEN 13 MG/DL (7-18); CHLORIDE 104 MEQ/L (98-107); GLOMERULAR FILTRATION RATE 75 ML/MIN (>89); SODIUM (NA) 140 MEQ/L (136-145)
[2016-08-03 03:18] LABS: ALKALINE PHOSPHATASE 72 U/L (45-117); TOTAL BILIRUBIN ADULT 0.2 MG/DL (0.2-1.0)
--- NOTE | 2016-08-03 03:29 | RADRPT ---
EXAM DATE/TIME: 08/03/2016 02:58 [facility] COMPARISON: No previous studies available for comparison. INDICATIONS : Abdominal pain with cellulitis skin complaint. ORAL CONTRAST: No oral contrast ingested. RADIATION DOSE: 27.43 CTDIvol (mGy) MEDICAL HISTORY : Diverticulitis. Pancreatitis. Diabetes mellitus type 2.Gastritis, esophagitis. hernia. SURGICAL HISTORY : Cholecystectomy. Tubal ligation.Hysterectomy.Pain pump ENCOUNTER: Initial ACUITY: 1 day PAIN SCALE: 5/10 LOCATION: abdomen TECHNIQUE: Volumetric scanning of the abdomen and pelvis was performed. Using automated exposure control and ad justment of the mA and/or kV according to patient size, radiation dose was kept as low as reasonably achievable to obtain optimal diagnostic quality images. FINDINGS: LOWER LUNGS: The visualized lower lungs are clear. LIVER: Homogeneous density without lesion. There is no dilation of the biliary tree. Gallbladder surgically absent. SPLEEN: Normal size without lesion. PANCREAS: Within normal limits. KIDNEYS: Tiny nonobstructing calculus in the lower pole collecting system of the left kidney. No suspicious ma ss or hydronephrosis. ADRENAL GLANDS: Within normal limits. VASCULAR: There is no aortic aneurysm. BOWEL/MESENTERY: Mild nonspecific indurative changes in the mesenteric root. Bowel structures are focally unremarkable with no abnormal dilatation, wall thickening or adjacent inflammatory change. No free fluid. ABDOMINAL WALL: Within normal limits. RETROPERITONEUM: There is no lymphadenopathy. BLADDER: No wall thickening or mass. REPRODUCTIVE: Uterus is surgically absent. No evidence of pelvic mass. INGUINAL: There is no lymphadenopathy or hernia. MUSCULOSKELETAL: Spinal stimulator in place with control pack over left iliac crest CONCLUSION: Mild nonspecific indurative changes in the mesenteric root. Tiny nonobstructing left kidney stone. Navjot Corrales MD on August 03, 2016 at 3:22 Board Certified Radiologist. This report was verified electronically.
--- NOTE | 2016-08-03 04:42 | PD ---
HPI Chief Complaint: Skin Problem Time Seen by Provider: 02:13 Travel History International Travel<30 days: No Contact w/Intl Traveler<30days: No Traveled to known affect area: No History of Present Illness HPI Patient is a 46-year-old female who has been here multiple times for multiple medical issues. She often complains of chronic abdominal pain. Today she comes in saying that she has a cellulitis to her abdominal wall. She has had 2 rounds of antibiotics. She says she went back to [facility] and she says she was told to come to the emergency department. She has paperwork that has referred her to a general surgeon. She says she feels generally unwell. She has some nausea. She has not had any fever or chills. PFSH Past Medical History Arthritis: Yes Anxiety: Yes Depression: No Heart Rhythm Problems: No Cancer: No Cardiovascular Problems: No High Cholesterol: No Chest Pain: No Congestive Heart Failure: No Diabetes: Yes (HYPOGLYCEMIA) Patient Takes Glucophage: No Diminished Hearing: No Diverticulitis: Yes Endocrine: No Gastrointestinal Disorders: Yes (GASTRITIS,ESOPHAGITIS, N&V, HX ULCERS) GERD: No Genitourinary: Yes (PROLAPSED BLADDER) Hepatitis: No Hiatal Hernia: No Immune Disorder: No Implanted Vascular Access Dvce: Yes Kidney Stones: Yes Medical other: Yes (ABDOMINAL HERNIA) Musculoskeletal: Yes (DDD, LUMBAR HERNIATED DISC L5-S1) Neurologic: Yes (MIGRAINES, "BLACK OUT SPELLS") Psychiatric: Yes (CLAUSTROPHOBIA) Reproductive: No Respiratory: No Migraines: Yes Pancreatitis: Yes Renal Failure: No Seizures: Yes Thyroid Disease: No Ulcer: Yes (HEALED GASTRIC) ?: Not : 2 Para: 2 Tubal Ligation: Yes Past Surgical History Abdominal Surgery: Yes (SLEEVE SX ON 11/04/13,[facility]Y) AICD: No Body Medical Devices: NONE Cardiac Surgery: No Section: Yes (x2) Cholecystectomy: Yes ([facility]AP. [place] 2011) Ear Surgery: No Eye Surgery: No Genitourinary Surgery: No Gynecologic Surgery: Yes (C SECTION (X2), TUBAL LIG.) Hysterectomy: Yes Joint Replacement: No Oral Surgery: No Pacemaker: No Thoracic Surgery: No Other Surgery: Yes (LEFT THIGH I&D FOR MRSA) Social History Alcohol Use: No Tobacco Use: No (never) Substance Use: No Allergies-Medications (Allergen,Severity, Reaction): Coded Allergies: Cipro (Verified Allergy, Severe, Hives, ABD PAIN, 08/02/16) Doxycycline (Verified Allergy, Severe, SWELLING, HIVES, 08/02/16) Nonsteroidal Anti-Inflammatory Agts (Verified Allergy, Severe, 08/02/16) DUE TO A SURGICAL PROCEDURE IN THE PAST Cleocin (Verified Allergy, Intermediate, HIVES, 08/02/16) Contrast Media (Verified Allergy, Intermediate, Hives, 08/02/16) Vancomycin (Verified Allergy, Intermediate, HIVES, 08/02/16) Biaxin (Verified Adverse Reaction, Intermediate, NAUSEA, 08/02/16) Motrin (Verified Adverse Reaction, Intermediate, ULCERS, ABD PAIN, 08/02/16) PT HAS ULCERS, DOES NOT WISH TO TAKE. Toradol (Verified Adverse Reaction, Intermediate, 08/02/16) ABDOMINAL PAIN Bactrim (Verified Adverse Reaction, Mild, abdominal pain, 08/02/16) Has had since without difficulty (reaction was years ago) Reported Meds & Prescriptions Reported Meds & Active Scripts Active Duloxetine DR (Duloxetine HCl) 60 Mg Capdr 60 Mg PO DAILY Proair Hfa 8.5 GM Inh (Albuterol Sulfate) 90 Mcg/Act Aer 2 Puff INH Q4-6H PRN 108 mcg/actuation Virtussin A-C Liq (Guaifenesin-Codeine Liq) 100-10 Mg/5 Ml Soln 10 Ml PO Q8HR PRN Flagyl (Metronidazole) 500 Mg Tab 500 Mg PO TID Hydrocortisone 20 Mg Tab 20 Mg PO DIRECTED Take 20mg in the morning and 10mg at 4pm. Take with food to decrease GI upset Trazodone (Trazodone HCl) 300 Mg Tab 300 Mg PO HS Fiorinal (Butalbital/Aspirin/Caffeine) 50-325-40 Mg Cap 1 Cap PO Q6HR PRN Do not exceed 6 capsules/day. Xanax (Alprazolam) 1 Mg Tab 1 Mg PO BID PRN Reported [dilaudid pain pump] Movantik (Naloxegol) 12.5 Mg Tab 12.5 Mg PO DAILY [pancreatic enzymes] Zanaflex (Tizanidine HCl) 4 Mg Cap 4 Mg PO TID PRN Marinol (Dronabinol) 5 Mg Cap 5 Mg PO BID Percocet (Oxycodone-Acetaminophen) 10-325 mg Tab 1 Tab PO TID PRN Zofran Odt (Ondansetron Odt) 4 Mg Tab 4 Mg SL Q6HR PRN Review of Systems Except as stated in HPI: all other systems reviewed are Neg General / Constitutional: No: Fever, Chills HENT: No: Headaches Cardiovascular: No: Chest Pain or Discomfort Respiratory: No: Shortness of Breath Gastrointestinal: Positive: Nausea, Abdominal Pain, No: Vomiting Genitourinary: No: Dysuria Skin: Positive Lesions Neurologic: No: Weakness, Dizziness Physical Exam Narrative GENERAL: Awake and alert, in no acute distress. SKIN: Warm and dry. There is no area of erythema or warmth on the abdominal wall. There is an area of scar tissue in the left lower abdomen. HEAD: Atraumatic. Normocephalic. EYES: Pupils equal and round. No scleral icterus. ENT: Mucous membranes pink and moist. NECK: Trachea midline. No JVD. CARDIOVASCULAR: Regular rate and rhythm. No murmur appreciated. RESPIRATORY: No accessory muscle use. Clear to auscultation. Breath sounds equal bilaterally. GASTROINTESTINAL: Abdomen soft, non-tender, nondistended. MUSCULOSKELETAL: No obvious deformities. No clubbing. No cyanosis. No edema. NEUROLOGICAL: Awake and alert. No obvious cranial nerve deficits. Motor grossly within normal limits. Normal speech. PSYCHIATRIC: Appropriate mood and affect; insight and judgment normal. Data Data Last Documented VS Vital Signs Date Time Temp Pulse Resp B/P Pulse Ox O2 Delivery O2 Flow Rate FiO2 08/02/16 21:21 98.2 94 16 130/63 95 Room Air Orders Complete Blood Count With Diff (08/03/16 02:50) Comprehensive Metabolic Panel (08/03/16 02:50) Ct Abd/Pel W/O Iv Contrast (08/03/16 ) Labs Laboratory Tests Test 08/03/16 02:30 White Blood Count 3.1 TH/MM3 Red Blood Count 4.02 MIL/MM3 Hemoglobin 10.2 GM/DL Hematocrit 31.6 % Mean Corpuscular Volume 78.8 FL Mean Corpuscular Hemoglobin 25.5 PG Mean Corpuscular Hemoglobin 32.3 % Concent Red Cell Distribution Width 13.0 % Platelet Count 247 TH/MM3 Mean Platelet Volume 7.7 FL Neutrophils (%) (Auto) 44.3 % Lymphocytes (%) (Auto) 38.3 % Monocytes (%) (Auto) 12.7 % Eosinophils (%) (Auto) 4.6 % Basophils (%) (Auto) 0.1 % Neutrophils # (Auto) 1.4 TH/MM3 Lymphocytes # (Auto) 1.2 TH/MM3 Monocytes # (Auto) 0.4 TH/MM3 Eosinophils # (Auto) 0.1 TH/MM3 Basophils # (Auto) 0.0 TH/MM3 CBC Comment DIFF FINAL Differential Comment Sodium Level 140 MEQ/L Potassium Level 4.0 MEQ/L Chloride Level 104 MEQ/L Carbon Dioxide Level 29.1 MEQ/L Anion Gap 7 MEQ/L Blood Urea Nitrogen 13 MG/DL Creatinine 0.82 MG/DL Estimat Glomerular Filtration 75 ML/MIN Rate Random Glucose 91 MG/DL Calcium Level 8.6 MG/DL Total Bilirubin 0.2 MG/DL Aspartate Amino Transf 14 U/L (AST/SGOT) Alanine Aminotransferase 14 U/L (ALT/SGPT) Alkaline Phosphatase 72 U/L Total Protein 6.3 GM/DL Albumin 3.0 GM/DL [facility] Medical Decision Making Medical Screen Exam Complete: Yes Emergency Medical Condition: Yes Medical Record Reviewed: Yes Differential Diagnosis Cellulitis versus abscess versus lipoma versus scar tissue Narrative Course Patient is a 46-year-old female comes in complaining of cellulitis of her abdominal wall. Exam shows no signs of cellulitis. IV established, labs sent. Labs show no acute abnormalities. CT of the abdomen and pelvis performed. This shows no evidence of cellulitis or abscess. Patient informed of the results. She is advised to follow-up with her doctors. Advised to see the surgeon as needed. Advised to return to the ED as needed for any worsening symptoms. Diagnosis Primary Impression: Abdominal wall symptom Patient Instructions: Abdominal Pain (ED), General Instructions Additional Instructions: Follow up with your doctors. Return to the ED as needed for any worsening symptoms. Disposition: 01 DISCHARGE HOME Condition: Stable Amita Yi MD Aug 03, 2016 04:42
[2016-08-03 05:00] VITALS: BP 128/76
[2016-09-17] MEDS ORDERED: CARPAL TUNNEL W1 MIS ×2 (14:39→14:54)
[2016-09-17] MEDS ORDERED: XANA1TAB2 PO (14:45)
[2016-09-17] MEDS ORDERED: ZOFR4TAB3 SL (14:45)
[2016-09-17] MEDS ORDERED: GABA300C5 PO (14:49)
[2016-09-18] MEDS ORDERED: TRIA40P I-ARTICULR ×2 (11:36→11:56)
== END 2016-08-03 05:12 | disposition home or self-care (01) ==
LOC: NEPE 21:19
DX: R10.84 Generalized abdominal pain (principal); E11.649 Type 2 diabetes mellitus with hypoglycemia without coma; Z87.442 Personal history of urinary calculi; G89.29 Other chronic pain
CPT/HCPCS: 74176; 80053; 85025